=== PATIENT | female | born 1965 | race Caucasian/White ===

== ENCOUNTER 2018-08-22 14:05 | Inpatient (IN) ==
[2018-08-22] MEDS ORDERED: Piperacillin/Tazobactam 3.375 GM in Water for inj. (sterile) 20 ML 20 ML IVP ONE (14:23)
--- NOTE | 2018-08-22 14:30 | Emergency Department Note ---
Disposition Clinical Impression: ROBERT (acute kidney injury), Elevated troponin, Hyperglycemia, Shock, Dehydration Hypotension Qualifiers: Hypotension type: unspecified hypotension type Qualified Code(s): I95.9 - Hypotension, unspecified Disposition: Admitted As Inpatient Condition: Serious Referrals: NONE,PCP [Primary Care Provider] - Time of Disposition: 16:18 General Adult HPI - General Chief complaint: ED Weakness Stated complaint: Hyperglycemia Post Gallbladder 08/21 Time Seen by Provider: 08/22/18 14:18 Source: patient, family Mode of arrival: wheelchair Limitations: no limitations Nursing Notes Reviewed: Yes Vital Signs Reviewed: Yes - History of Present Illness HPI Narrative: Patient is a 53-year-old female that presents to the emergency Department postop day 1 from a cholecystectomy with Dr. Almodovar. She states that she is having continued abdominal pain. Her home health aide reported that she was hyperglycemic and hypotensive at home so she wanted her to come in to be evaluated. The patient's daughter did express that there is concern yesterday during the surgery that there could potentially have been a neck and the bowel however the surgeon ran the bowel was not able to find a perforation. Pain Scale: 10 - Related Data Home Medications Medication Instructions Recorded Confirmed Aspirin [Lo-Dose Aspirin EC] 81 mg PO DAILY 08/26/17 08/21/18 Canagliflozin [Invokana] 300 mg PO DAILY 08/26/17 08/21/18 Carvedilol [Coreg] 6.25 mg PO DAILY 08/26/17 08/21/18 Furosemide [Lasix] 20 mg PO DAILY 08/26/17 08/21/18 Liraglutide [Victoza 2-Grant] 0.2 ml SQ DAILY 08/26/17 08/21/18 Lisinopril [Zestril] 20 mg PO DAILY 08/26/17 08/21/18 Loratadine [Claritin] 10 mg PO DAILY PRN 08/26/17 08/21/18 Simvastatin [Zocor] 40 mg PO HS 08/26/17 08/21/18 Spironolactone [Aldactone] 12.5 mg PO DAILY 08/26/17 08/26/17 Venlafaxine XR (24 HR) [Effexor XR] 75 mg PO DAILY 08/26/17 08/21/18 Previous Rx's Medication Instructions Recorded OxyCODONE/APAP 5/325 [Percocet 1 each PO Q6HR PRN 7 Days #20 08/21/18 5/325 MG] tablet Allergies Allergy/AdvReac Type Severity Reaction Status Date / Time No Known Allergies Allergy Verified 08/26/17 07:34 All systems ED: reviewed and negative except as stated. Constitutional: Denies: fever Cardiovascular: Denies: chest pain Respiratory: Denies: dyspnea Gastrointestinal: Reports: abdominal pain Past Medical History - Past Medical History Medical history: Reports: cardiomyopathy, coronary artery disease, CVA, diabetes, hyperlipidemia, hypertension, seizures Surgical history: Reports: angioplasty/stent, breast surgery, , coronary bypass (CABG) Psychiatric history: Reports: anxiety, depression - Social History Smoking Status: Never smoker Smokeless Tobacco Status: No Alcohol use: Reports: none Drug use: Reports: none Physical Exam - General Limitations: no limitations General appearance: alert, in no apparent distress - Head Head exam: atraumatic, normocephalic - Eye Eye exam: Present: normal appearance, EOMI - Neck Neck exam: Present: normal inspection, full ROM, trachea midline - Respiratory Respiratory exam: Present: normal lung sounds bilaterally. Absent: respiratory distress, wheezes - Cardiovascular Cardiovascular exam: Present: regular rate, normal rhythm, normal heart sounds, +S1, +S2 - Abdominal Exam Abdominal exam: Present: soft, tenderness, normal bowel sounds Abdominal tenderness: Present: diffuse, moderate - Neurological Exam Neurological exam: Present: alert, oriented X3 - Psychiatric Psychiatric exam: Present: normal affect, normal mood - Skin Skin exam: Present: warm, dry, intact Course Vital Signs Pulse Rate 101 08/22/18 14:15 Respiratory Rate 18 08/22/18 14:15 Blood Pressure 69/46 08/22/18 14:15 O2 Sat by Pulse Oximetry 96 08/22/18 14:15 Temperature 97.3 F L 08/22/18 14:34 Pulse Rate 107 08/22/18 17:20 Respiratory Rate 16 08/22/18 17:20 Blood Pressure 95/55 08/22/18 17:20 O2 Sat by Pulse Oximetry 99 08/22/18 17:20 Oxygen Delivery Oxygen Delivery Room Air Medical Decision Making - MDM Narrative Medical decision making narrative: Due the patient presents emergency Department with increased abdominal pain as well as hypotension there is concern for possible intra-abdominal pathology associated with recent surgery. Continue basic laboratory testing, put in 2 large bore IVs and fluid resuscitation as well as empiric antibiotics. Dr. Almodovar was notified and he had stated that when he was introduced in the trocar there is initial concern that there could be perforation of the bowel however they ran the ball multiple times and there was no leak or bleeding from the bowel. He stated that after examining the bowel he thinks it is more likely that the trocar is a rectus muscle. The patient has required 3 L of normal saline here in the emergency department. Patient was hyperglycemic with a blood glucose of 548. Patient is not acidotic. PH is 7.38. Patient has an anion gap of 18. Her bicarbonate is 16. Patient is approaching DKA. Patient be treated with IV insulin and fluids. Patient has had responsiveness to the fluids from a blood pressure standpoint. Her blood pressure has been in the mid 90s to low 100s systolic. However due to the patient requiring multiple fluids, insulin and antibiotics in the patient's blood pressure being somewhat labile we will place a central line. I did call and speak to the on-call steward/stewardess third Dr Quintana and he has agreed for the patient to be admitted to the ICU. Patient will have a noncontrasted CT scan of the abdomen and pelvis rule out possible intra- abdominal pathology due to the patient having reduced kidney function and GFR she cannot have a contrast study at this time. Patient does have an elevated troponin at this time however the likely secondary to the patient being hypotensive and having decreased renal function. Because this is likely demand ischemia. If there are any acute intervention is required at this time. The steward/stewardess third was in agreement with this plan but did request that IV magnesium be given. This will be done prior to the patient be admitted to the hospital. The CT scan of the abdomen and pelvis showed a significant amount of fluid in the right upper quadrant which is concerning for possible bile leak. I did call the surgeon Dr. Almodovar who was on-call who performed the initial surgery. He came to bedside to evaluate the patient and reviewed the CT scan and felt that this was too much fluid in the abdomen and she was having too much pain so he elected to take the patient back to the OR at this time. We offered to put a central line in here in the emergency department however Dr. Almodovar stated that we did not need to do that he would take her to the OR and if he needed that they would place it there. Patient's blood pressure was 97 systolic prior to the patient leaving the ER. - Medical Records Medical records reviewed: Yes I reviewed the patient's medical records. - Lab Data Lab results reviewed: Yes I reviewed the patient's lab results. Result diagrams: 08/22/18 14:38 08/22/18 14:38 Lab Results 08/22/18 08/22/18 08/22/18 Range/Units 14:22 14:23 14:38 WBC (4.3-11.1) K/mcL RBC (3.82-4.97) M/mcL Hgb (11.5-15.4) g/dL Hct (35.3-44.9) % MCV (83.0-100.0) fL MCH (28.0-33.3) pg MCHC (31.6-35.5) g/dL RDW (11.5-14.5) % Plt Count (140-400) K/mcL MPV (9.4-12.4) fL Immature Gran % (0-4) % Seg Neutrophils % % Lymphocytes % % Monocytes % % Eosinophils % % Basophils % % Neutrophils # (1.6-8.9) K/mcL Lymphocytes # (0.6-4.6) K/mcL Monocytes # (0.0-1.3) K/mcL Eosinophils # (0.0-0.6) K/mcL Basophils # (0.0-0.2) K/mcL PT (9.4-12.1) Seconds INR APTT (26.0-36.0) Seconds VBG pH (7.32-7.42) pH Units VBG pCO2 (41-51) mmHg VBG pO2 (25-50) mmHg VBG HCO3 (21-27) mEq/L Sodium (136-145) mEq/L Potassium (3.5-5.1) mEq/L Chloride (98-107) mEq/L Carbon Dioxide (23-29) mEq/L BUN (6-20) mg/dL Creatinine (0.60-1.20) mg/dL Est GFR ( Amer) (> 60) Est GFR (Non-Af Amer) (> 60) BUN/Creatinine Ratio (6-26) Glucose (70-105) mg/dL POC Glucose 523 H* 578 H* (70-99) mg/dL Calculated Osmolality (280-300) Lactic Acid (0.5-2.2) mmol/L Calcium (8.6-10.3) mg/dL Phosphorus (2.7-4.5) mg/dL Magnesium (1.6-2.6) mg/dL Total Bilirubin (0.3-1.0) mg/dL Direct Bilirubin (0.0-0.2) mg/dL Indirect Bilirubin (0.0-1.2) mg/dL AST (13-39) Units/L ALT (7-52) Units/L Alkaline Phosphatase (34-104) Units/L Troponin I (< 0.04) ng/mL B-Natriuretic Peptide 184 H (Less than 100) pg/mL Serum Total Protein (6.4-8.9) g/dL Albumin (3.5-5.7) g/dL Globulin (2.4-3.5) g/dL Albumin/Globulin Ratio (1.1-2.2) Beta-Hydroxybutyric Acd (0.02-0.27) mmol/L Random Cortisol mcg/dl Urine Color (Yellow) Urine Clarity (Clear) Urine pH (5.0-8.0) pH Units Ur Specific [place] (1.010-1.025) Urine Protein (Neg-Trace) mg/dL Urine Glucose (UA) (Normal) mg/dL Urine Ketones (Negative) mg/dL Urine Blood (Negative) Urine Nitrite (Negative) Urine Bilirubin (Negative) Urine Urobilinogen (Normal) mg/dL Ur Leukocyte Esterase (Negative) Ur Culture Indicated? (NO) Blood Type Antibody Screen 08/22/18 08/22/18 08/22/18 Range/Units 14:38 14:38 14:38 WBC 5.1 (4.3-11.1) K/mcL RBC 5.53 H (3.82-4.97) M/mcL Hgb 14.9 D (11.5-15.4) g/dL Hct 46.8 H (35.3-44.9) % MCV 84.6 (83.0-100.0) fL MCH 26.9 L (28.0-33.3) pg MCHC 31.8 (31.6-35.5) g/dL RDW 13.7 (11.5-14.5) % Plt Count 328 (140-400) K/mcL MPV 10.5 (9.4-12.4) fL Immature Gran % 0.4 (0-4) % Seg Neutrophils % 74.9 % Lymphocytes % 17.5 % Monocytes % 6.8 % Eosinophils % 0.0 % Basophils % 0.4 % Neutrophils # 3.8 (1.6-8.9) K/mcL Lymphocytes # 0.9 (0.6-4.6) K/mcL Monocytes # 0.4 (0.0-1.3) K/mcL Eosinophils # 0.0 (0.0-0.6) K/mcL Basophils # 0.0 (0.0-0.2) K/mcL PT 14.5 H (9.4-12.1) Seconds INR 1.3 APTT 30.7 (26.0-36.0) Seconds VBG pH (7.32-7.42) pH Units VBG pCO2 (41-51) mmHg VBG pO2 (25-50) mmHg VBG HCO3 (21-27) mEq/L Sodium 128 L (136-145) mEq/L Potassium 5.4 H (3.5-5.1) mEq/L Chloride 94 L (98-107) mEq/L Carbon Dioxide 16 L (23-29) mEq/L BUN 31 H (6-20) mg/dL Creatinine 1.89 H (0.60-1.20) mg/dL Est GFR ( Amer) 34 L (> 60) Est GFR (Non-Af Amer) 28 L (> 60) BUN/Creatinine Ratio 16 (6-26) Glucose 548 H* (70-105) mg/dL POC Glucose (70-99) mg/dL Calculated Osmolality 298 (280-300) Lactic Acid (0.5-2.2) mmol/L Calcium 8.5 L (8.6-10.3) mg/dL Phosphorus 4.9 H (2.7-4.5) mg/dL Magnesium 1.1 L (1.6-2.6) mg/dL Total Bilirubin 0.7 (0.3-1.0) mg/dL Direct Bilirubin 0.1 (0.0-0.2) mg/dL Indirect Bilirubin 0.6 (0.0-1.2) mg/dL AST 32 (13-39) Units/L ALT 24 (7-52) Units/L Alkaline Phosphatase 47 (34-104) Units/L Troponin I 0.04 H* (< 0.04) ng/mL B-Natriuretic Peptide (Less than 100) pg/mL Serum Total Protein 6.3 L (6.4-8.9) g/dL Albumin 3.7 (3.5-5.7) g/dL Globulin 2.6 (2.4-3.5) g/dL Albumin/Globulin Ratio 1.4 (1.1-2.2) Beta-Hydroxybutyric Acd (0.02-0.27) mmol/L Random Cortisol mcg/dl Urine Color (Yellow) Urine Clarity (Clear) Urine pH (5.0-8.0) pH Units Ur Specific [place] (1.010-1.025) Urine Protein (Neg-Trace) mg/dL Urine Glucose (UA) (Normal) mg/dL Urine Ketones (Negative) mg/dL Urine Blood (Negative) Urine Nitrite (Negative) Urine Bilirubin (Negative) Urine Urobilinogen (Normal) mg/dL Ur Leukocyte Esterase (Negative) Ur Culture Indicated? (NO) Blood Type Antibody Screen 08/22/18 08/22/18 08/22/18 Range/Units 14:38 14:38 14:38 WBC (4.3-11.1) K/mcL RBC (3.82-4.97) M/mcL Hgb (11.5-15.4) g/dL Hct (35.3-44.9) % MCV (83.0-100.0) fL MCH (28.0-33.3) pg MCHC (31.6-35.5) g/dL RDW (11.5-14.5) % Plt Count (140-400) K/mcL MPV (9.4-12.4) fL Immature Gran % (0-4) % Seg Neutrophils % % Lymphocytes % % Monocytes % % Eosinophils % % Basophils % % Neutrophils # (1.6-8.9) K/mcL Lymphocytes # (0.6-4.6) K/mcL Monocytes # (0.0-1.3) K/mcL Eosinophils # (0.0-0.6) K/mcL Basophils # (0.0-0.2) K/mcL PT (9.4-12.1) Seconds INR APTT (26.0-36.0) Seconds VBG pH (7.32-7.42) pH Units VBG pCO2 (41-51) mmHg VBG pO2 (25-50) mmHg VBG HCO3 (21-27) mEq/L Sodium (136-145) mEq/L Potassium (3.5-5.1) mEq/L Chloride (98-107) mEq/L Carbon Dioxide (23-29) mEq/L BUN (6-20) mg/dL Creatinine (0.60-1.20) mg/dL Est GFR ( Amer) (> 60) Est GFR (Non-Af Amer) (> 60) BUN/Creatinine Ratio (6-26) Glucose (70-105) mg/dL POC Glucose (70-99) mg/dL Calculated Osmolality (280-300) Lactic Acid 5.3 H* (0.5-2.2) mmol/L Calcium (8.6-10.3) mg/dL Phosphorus (2.7-4.5) mg/dL Magnesium (1.6-2.6) mg/dL Total Bilirubin (0.3-1.0) mg/dL Direct Bilirubin (0.0-0.2) mg/dL Indirect Bilirubin (0.0-1.2) mg/dL AST (13-39) Units/L ALT (7-52) Units/L Alkaline Phosphatase (34-104) Units/L Troponin I (< 0.04) ng/mL B-Natriuretic Peptide (Less than 100) pg/mL Serum Total Protein (6.4-8.9) g/dL Albumin (3.5-5.7) g/dL Globulin (2.4-3.5) g/dL Albumin/Globulin Ratio (1.1-2.2) Beta-Hydroxybutyric Acd 0.41 H (0.02-0.27) mmol/L Random Cortisol mcg/dl Urine Color (Yellow) Urine Clarity (Clear) Urine pH (5.0-8.0) pH Units Ur Specific [place] (1.010-1.025) Urine Protein (Neg-Trace) mg/dL Urine Glucose (UA) (Normal) mg/dL Urine Ketones (Negative) mg/dL Urine Blood (Negative) Urine Nitrite (Negative) Urine Bilirubin (Negative) Urine Urobilinogen (Normal) mg/dL Ur Leukocyte Esterase (Negative) Ur Culture Indicated? (NO) Blood Type B POSITIVE Antibody Screen NEGATIVE 08/22/18 08/22/18 08/22/18 Range/Units 14:38 14:57 15:06 WBC (4.3-11.1) K/mcL RBC (3.82-4.97) M/mcL Hgb (11.5-15.4) g/dL Hct (35.3-44.9) % MCV (83.0-100.0) fL MCH (28.0-33.3) pg MCHC (31.6-35.5) g/dL RDW (11.5-14.5) % Plt Count (140-400) K/mcL MPV (9.4-12.4) fL Immature Gran % (0-4) % Seg Neutrophils % % Lymphocytes % % Monocytes % % Eosinophils % % Basophils % % Neutrophils # (1.6-8.9) K/mcL Lymphocytes # (0.6-4.6) K/mcL Monocytes # (0.0-1.3) K/mcL Eosinophils # (0.0-0.6) K/mcL Basophils # (0.0-0.2) K/mcL PT (9.4-12.1) Seconds INR APTT (26.0-36.0) Seconds VBG pH 7.38 (7.32-7.42) pH Units VBG pCO2 25 L (41-51) mmHg VBG pO2 212 H (25-50) mmHg VBG HCO3 15 L (21-27) mEq/L Sodium (136-145) mEq/L Potassium (3.5-5.1) mEq/L Chloride (98-107) mEq/L Carbon Dioxide (23-29) mEq/L BUN (6-20) mg/dL Creatinine (0.60-1.20) mg/dL Est GFR ( Amer) (> 60) Est GFR (Non-Af Amer) (> 60) BUN/Creatinine Ratio (6-26) Glucose (70-105) mg/dL POC Glucose (70-99) mg/dL Calculated Osmolality (280-300) Lactic Acid (0.5-2.2) mmol/L Calcium (8.6-10.3) mg/dL Phosphorus (2.7-4.5) mg/dL Magnesium (1.6-2.6) mg/dL Total Bilirubin (0.3-1.0) mg/dL Direct Bilirubin (0.0-0.2) mg/dL Indirect Bilirubin (0.0-1.2) mg/dL AST (13-39) Units/L ALT (7-52) Units/L Alkaline Phosphatase (34-104) Units/L Troponin I (< 0.04) ng/mL B-Natriuretic Peptide (Less than 100) pg/mL Serum Total Protein (6.4-8.9) g/dL Albumin (3.5-5.7) g/dL Globulin (2.4-3.5) g/dL Albumin/Globulin Ratio (1.1-2.2) Beta-Hydroxybutyric Acd (0.02-0.27) mmol/L Random Cortisol > 60.0 mcg/dl Urine Color Yellow (Yellow) Urine Clarity Clear (Clear) Urine pH 6.0 (5.0-8.0) pH Units Ur Specific [place] 1.024 (1.010-1.025) Urine Protein Negative (Neg-Trace) mg/dL Urine Glucose (UA) >=1000 H (Normal) mg/dL Urine Ketones 15 H (Negative) mg/dL Urine Blood Negative (Negative) Urine Nitrite Negative (Negative) Urine Bilirubin Negative (Negative) Urine Urobilinogen Normal (Normal) mg/dL Ur Leukocyte Esterase Negative (Negative) Ur Culture Indicated? NO (NO) Blood Type Antibody Screen - Radiology Data Radiology results reviewed: Yes I reviewed the patient's radiology results. Chest X-Ray 08/22/18 14:24 IMPRESSION: No acute cardiopulmonary disease. D/ / Manohar Harmon MD / Manohar Harmon MD Interpreting Provider: Manohar Harmon MD - EKG Data EKG #1 EKG attestation: Yes I reviewed and interpreted this EKG. EKG results narrative: Patient's EKG showed sinus tachycardia at 104 beats from it, MD interval 141, QRS duration of 14, QTc of 44. Initial evidence of STEMI and EKG. Attestation Statement - Attestation Attestation: I, Joe Morejon DO, examined this patient [id number] and my medical decision-making was reviewed with Dr. Philippe Fernandez, Resident Physician. I agree with the documented findings, disposition and treatment plan as described except to the extent set forth below. Please see my progress notes for details.
[2018-08-22] MEDS ORDERED: 0.9 % Sodium Chloride Mini Bag 100 ML ONE (14:38)
[2018-08-22] MEDS ORDERED: Hydrocortisone Sodium Succ 100 MG/2 ML VIAL IVP ONE (14:41)
[2018-08-22] MEDS: 0.9 % Sodium Chloride 1,000 ML IVC SCH ×2 (14:42→14:54)
[2018-08-22 15:00] LABS: Basophils % 0.4 %; Hematocrit 46.8 % (35.3-44.9); Immature Granulocytes % 0.4 % (0-4); Lymphocytes # 0.9 K/mcL (0.6-4.6); Lymphocytes % 17.5 %; Mean Corpuscular HGB Conc 31.8 g/dL (31.6-35.5); Mean Corpuscular Hemoglobin 26.9 pg (28.0-33.3); Mean Corpuscular Volume 84.6 fL (83.0-100.0); Mean Platelet Volume 10.5 fL (9.4-12.4); Monocytes # 0.4 K/mcL (0.0-1.3); Monocytes % 6.8 %; Neutrophils # 3.8 K/mcL (1.6-8.9); Platelet Count 328 K/mcL (140-400); Red Blood Count 5.53 M/mcL (3.82-4.97); Red Cell Distribution Width 13.7 % (11.5-14.5); Segmented Neutrophils % 74.9 %
[2018-08-22 15:00] LABS: VBG HCO3 15 mEq/L (21-27); VBG PCO2 25 mmHg (41-51); VBG PH 7.38 pH Units (7.32-7.42); VBG PO2 212 mmHg (25-50)
[2018-08-22 15:01] LABS: Hemoglobin 14.9 g/dL (11.5-15.4)
[2018-08-22 15:05] LABS: INR 1.3; Prothrombin Time 14.5 Seconds (9.4-12.1)
[2018-08-22 15:07] LABS: Activated Partial Thrombo Time 30.7 Seconds (26.0-36.0)
[2018-08-22] MEDS ORDERED: 0.9 % Sodium Chloride 500 ML IVC ONE (15:38)
[2018-08-22 15:41] LABS: Albumin 3.7 g/dL (3.5-5.7); Albumin/Globulin Ratio 1.4 (1.1-2.2); Bilirubin,Direct 0.1 mg/dL (0.0-0.2); Bilirubin,Indirect 0.6 mg/dL (0.0-1.2); Bilirubin,Total 0.7 mg/dL (0.3-1.0); Calcium 8.5 mg/dL (8.6-10.3); Globulin 2.6 g/dL (2.4-3.5); Magnesium 1.1 mg/dL (1.6-2.6); Phosphorous 4.9 mg/dL (2.7-4.5); Potassium 5.4 mEq/L (3.5-5.1); Total Protein 6.3 g/dL (6.4-8.9); Troponin I 0.04 ng/mL (< 0.04)
--- NOTE | 2018-08-22 15:57 | Emergency Department Note ---
Disposition Clinical Impression: Hypotension, ROBERT (acute kidney injury), Elevated troponin, Hyperglycemia, Shock, Dehydration Disposition: Admitted As Inpatient Condition: Critical Referrals: NONE,PCP [Primary Care Provider] - Time of Disposition: 17:21 General Adult HPI - General Chief complaint: ED Weakness Stated complaint: Hyperglycemia Post Gallbladder 08/21 Time Seen by Provider: 08/22/18 14:18 Source: patient, family Mode of arrival: wheelchair Limitations: no limitations - History of Present Illness Pain Scale: 10 - Related Data Home Medications Medication Instructions Recorded Confirmed Aspirin [Lo-Dose Aspirin EC] 81 mg PO DAILY 08/26/17 08/21/18 Canagliflozin [Invokana] 300 mg PO DAILY 08/26/17 08/21/18 Carvedilol [Coreg] 6.25 mg PO DAILY 08/26/17 08/21/18 Furosemide [Lasix] 20 mg PO DAILY 08/26/17 08/21/18 Liraglutide [Victoza 2-Grant] 0.2 ml SQ DAILY 08/26/17 08/21/18 Lisinopril [Zestril] 20 mg PO DAILY 08/26/17 08/21/18 Loratadine [Claritin] 10 mg PO DAILY PRN 08/26/17 08/21/18 Simvastatin [Zocor] 40 mg PO HS 08/26/17 08/21/18 Spironolactone [Aldactone] 12.5 mg PO DAILY 08/26/17 08/26/17 Venlafaxine XR (24 HR) [Effexor XR] 75 mg PO DAILY 08/26/17 08/21/18 Previous Rx's Medication Instructions Recorded OxyCODONE/APAP 5/325 [Percocet 1 each PO Q6HR PRN 7 Days #20 08/21/18 5/325 MG] tablet Allergies Allergy/AdvReac Type Severity Reaction Status Date / Time No Known Allergies Allergy Verified 08/26/17 07:34 Constitutional: Denies: fever Cardiovascular: Denies: chest pain Respiratory: Denies: dyspnea Gastrointestinal: Reports: abdominal pain Past Medical History - Past Medical History Medical history: Reports: cardiomyopathy, coronary artery disease, CVA, diabetes, hyperlipidemia, hypertension, seizures Surgical history: Reports: angioplasty/stent, breast surgery, , coronary bypass (CABG) Psychiatric history: Reports: anxiety, depression - Social History Smoking Status: Never smoker Smokeless Tobacco Status: No Alcohol use: Reports: none Drug use: Reports: none Physical Exam - General Limitations: no limitations General appearance: alert, in no apparent distress Course Vital Signs Pulse Rate 101 08/22/18 14:15 Respiratory Rate 18 08/22/18 14:15 Blood Pressure 69/46 08/22/18 14:15 O2 Sat by Pulse Oximetry 96 08/22/18 14:15 Temperature 97.3 F L 08/22/18 14:34 Pulse Rate 100 08/22/18 16:39 Respiratory Rate 18 08/22/18 16:39 Blood Pressure 98/56 08/22/18 16:39 O2 Sat by Pulse Oximetry 98 08/22/18 16:39 Oxygen Delivery Oxygen Delivery Room Air Medical Decision Making - Lab Data Result diagrams: 08/22/18 14:38 08/22/18 14:38 Lab Results 08/22/18 08/22/18 08/22/18 Range/Units 14:22 14:23 14:38 WBC (4.3-11.1) K/mcL RBC (3.82-4.97) M/mcL Hgb (11.5-15.4) g/dL Hct (35.3-44.9) % MCV (83.0-100.0) fL MCH (28.0-33.3) pg MCHC (31.6-35.5) g/dL RDW (11.5-14.5) % Plt Count (140-400) K/mcL MPV (9.4-12.4) fL Immature Gran % (0-4) % Seg Neutrophils % % Lymphocytes % % Monocytes % % Eosinophils % % Basophils % % Neutrophils # (1.6-8.9) K/mcL Lymphocytes # (0.6-4.6) K/mcL Monocytes # (0.0-1.3) K/mcL Eosinophils # (0.0-0.6) K/mcL Basophils # (0.0-0.2) K/mcL PT (9.4-12.1) Seconds INR APTT (26.0-36.0) Seconds VBG pH (7.32-7.42) pH Units VBG pCO2 (41-51) mmHg VBG pO2 (25-50) mmHg VBG HCO3 (21-27) mEq/L Sodium (136-145) mEq/L Potassium (3.5-5.1) mEq/L Chloride (98-107) mEq/L Carbon Dioxide (23-29) mEq/L BUN (6-20) mg/dL Creatinine (0.60-1.20) mg/dL Est GFR ( Amer) (> 60) Est GFR (Non-Af Amer) (> 60) BUN/Creatinine Ratio (6-26) Glucose (70-105) mg/dL POC Glucose 523 H* 578 H* (70-99) mg/dL Calculated Osmolality (280-300) Lactic Acid (0.5-2.2) mmol/L Calcium (8.6-10.3) mg/dL Phosphorus (2.7-4.5) mg/dL Magnesium (1.6-2.6) mg/dL Total Bilirubin (0.3-1.0) mg/dL Direct Bilirubin (0.0-0.2) mg/dL Indirect Bilirubin (0.0-1.2) mg/dL AST (13-39) Units/L ALT (7-52) Units/L Alkaline Phosphatase (34-104) Units/L Troponin I (< 0.04) ng/mL B-Natriuretic Peptide 184 H (Less than 100) pg/mL Serum Total Protein (6.4-8.9) g/dL Albumin (3.5-5.7) g/dL Globulin (2.4-3.5) g/dL Albumin/Globulin Ratio (1.1-2.2) Beta-Hydroxybutyric Acd (0.02-0.27) mmol/L Random Cortisol mcg/dl Urine Color (Yellow) Urine Clarity (Clear) Urine pH (5.0-8.0) pH Units Ur Specific [place] (1.010-1.025) Urine Protein (Neg-Trace) mg/dL Urine Glucose (UA) (Normal) mg/dL Urine Ketones (Negative) mg/dL Urine Blood (Negative) Urine Nitrite (Negative) Urine Bilirubin (Negative) Urine Urobilinogen (Normal) mg/dL Ur Leukocyte Esterase (Negative) Ur Culture Indicated? (NO) Blood Type Antibody Screen 08/22/18 08/22/18 08/22/18 Range/Units 14:38 14:38 14:38 WBC 5.1 (4.3-11.1) K/mcL RBC 5.53 H (3.82-4.97) M/mcL Hgb 14.9 D (11.5-15.4) g/dL Hct 46.8 H (35.3-44.9) % MCV 84.6 (83.0-100.0) fL MCH 26.9 L (28.0-33.3) pg MCHC 31.8 (31.6-35.5) g/dL RDW 13.7 (11.5-14.5) % Plt Count 328 (140-400) K/mcL MPV 10.5 (9.4-12.4) fL Immature Gran % 0.4 (0-4) % Seg Neutrophils % 74.9 % Lymphocytes % 17.5 % Monocytes % 6.8 % Eosinophils % 0.0 % Basophils % 0.4 % Neutrophils # 3.8 (1.6-8.9) K/mcL Lymphocytes # 0.9 (0.6-4.6) K/mcL Monocytes # 0.4 (0.0-1.3) K/mcL Eosinophils # 0.0 (0.0-0.6) K/mcL Basophils # 0.0 (0.0-0.2) K/mcL PT 14.5 H (9.4-12.1) Seconds INR 1.3 APTT 30.7 (26.0-36.0) Seconds VBG pH (7.32-7.42) pH Units VBG pCO2 (41-51) mmHg VBG pO2 (25-50) mmHg VBG HCO3 (21-27) mEq/L Sodium 128 L (136-145) mEq/L Potassium 5.4 H (3.5-5.1) mEq/L Chloride 94 L (98-107) mEq/L Carbon Dioxide 16 L (23-29) mEq/L BUN 31 H (6-20) mg/dL Creatinine 1.89 H (0.60-1.20) mg/dL Est GFR ( Amer) 34 L (> 60) Est GFR (Non-Af Amer) 28 L (> 60) BUN/Creatinine Ratio 16 (6-26) Glucose 548 H* (70-105) mg/dL POC Glucose (70-99) mg/dL Calculated Osmolality 298 (280-300) Lactic Acid (0.5-2.2) mmol/L Calcium 8.5 L (8.6-10.3) mg/dL Phosphorus 4.9 H (2.7-4.5) mg/dL Magnesium 1.1 L (1.6-2.6) mg/dL Total Bilirubin 0.7 (0.3-1.0) mg/dL Direct Bilirubin 0.1 (0.0-0.2) mg/dL Indirect Bilirubin 0.6 (0.0-1.2) mg/dL AST 32 (13-39) Units/L ALT 24 (7-52) Units/L Alkaline Phosphatase 47 (34-104) Units/L Troponin I 0.04 H* (< 0.04) ng/mL B-Natriuretic Peptide (Less than 100) pg/mL Serum Total Protein 6.3 L (6.4-8.9) g/dL Albumin 3.7 (3.5-5.7) g/dL Globulin 2.6 (2.4-3.5) g/dL Albumin/Globulin Ratio 1.4 (1.1-2.2) Beta-Hydroxybutyric Acd (0.02-0.27) mmol/L Random Cortisol mcg/dl Urine Color (Yellow) Urine Clarity (Clear) Urine pH (5.0-8.0) pH Units Ur Specific [place] (1.010-1.025) Urine Protein (Neg-Trace) mg/dL Urine Glucose (UA) (Normal) mg/dL Urine Ketones (Negative) mg/dL Urine Blood (Negative) Urine Nitrite (Negative) Urine Bilirubin (Negative) Urine Urobilinogen (Normal) mg/dL Ur Leukocyte Esterase (Negative) Ur Culture Indicated? (NO) Blood Type Antibody Screen 08/22/18 08/22/18 08/22/18 Range/Units 14:38 14:38 14:38 WBC (4.3-11.1) K/mcL RBC (3.82-4.97) M/mcL Hgb (11.5-15.4) g/dL Hct (35.3-44.9) % MCV (83.0-100.0) fL MCH (28.0-33.3) pg MCHC (31.6-35.5) g/dL RDW (11.5-14.5) % Plt Count (140-400) K/mcL MPV (9.4-12.4) fL Immature Gran % (0-4) % Seg Neutrophils % % Lymphocytes % % Monocytes % % Eosinophils % % Basophils % % Neutrophils # (1.6-8.9) K/mcL Lymphocytes # (0.6-4.6) K/mcL Monocytes # (0.0-1.3) K/mcL Eosinophils # (0.0-0.6) K/mcL Basophils # (0.0-0.2) K/mcL PT (9.4-12.1) Seconds INR APTT (26.0-36.0) Seconds VBG pH (7.32-7.42) pH Units VBG pCO2 (41-51) mmHg VBG pO2 (25-50) mmHg VBG HCO3 (21-27) mEq/L Sodium (136-145) mEq/L Potassium (3.5-5.1) mEq/L Chloride (98-107) mEq/L Carbon Dioxide (23-29) mEq/L BUN (6-20) mg/dL Creatinine (0.60-1.20) mg/dL Est GFR ( Amer) (> 60) Est GFR (Non-Af Amer) (> 60) BUN/Creatinine Ratio (6-26) Glucose (70-105) mg/dL POC Glucose (70-99) mg/dL Calculated Osmolality (280-300) Lactic Acid 5.3 H* (0.5-2.2) mmol/L Calcium (8.6-10.3) mg/dL Phosphorus (2.7-4.5) mg/dL Magnesium (1.6-2.6) mg/dL Total Bilirubin (0.3-1.0) mg/dL Direct Bilirubin (0.0-0.2) mg/dL Indirect Bilirubin (0.0-1.2) mg/dL AST (13-39) Units/L ALT (7-52) Units/L Alkaline Phosphatase (34-104) Units/L Troponin I (< 0.04) ng/mL B-Natriuretic Peptide (Less than 100) pg/mL Serum Total Protein (6.4-8.9) g/dL Albumin (3.5-5.7) g/dL Globulin (2.4-3.5) g/dL Albumin/Globulin Ratio (1.1-2.2) Beta-Hydroxybutyric Acd 0.41 H (0.02-0.27) mmol/L Random Cortisol mcg/dl Urine Color (Yellow) Urine Clarity (Clear) Urine pH (5.0-8.0) pH Units Ur Specific [place] (1.010-1.025) Urine Protein (Neg-Trace) mg/dL Urine Glucose (UA) (Normal) mg/dL Urine Ketones (Negative) mg/dL Urine Blood (Negative) Urine Nitrite (Negative) Urine Bilirubin (Negative) Urine Urobilinogen (Normal) mg/dL Ur Leukocyte Esterase (Negative) Ur Culture Indicated? (NO) Blood Type B POSITIVE Antibody Screen NEGATIVE 08/22/18 08/22/18 08/22/18 Range/Units 14:38 14:57 15:06 WBC (4.3-11.1) K/mcL RBC (3.82-4.97) M/mcL Hgb (11.5-15.4) g/dL Hct (35.3-44.9) % MCV (83.0-100.0) fL MCH (28.0-33.3) pg MCHC (31.6-35.5) g/dL RDW (11.5-14.5) % Plt Count (140-400) K/mcL MPV (9.4-12.4) fL Immature Gran % (0-4) % Seg Neutrophils % % Lymphocytes % % Monocytes % % Eosinophils % % Basophils % % Neutrophils # (1.6-8.9) K/mcL Lymphocytes # (0.6-4.6) K/mcL Monocytes # (0.0-1.3) K/mcL Eosinophils # (0.0-0.6) K/mcL Basophils # (0.0-0.2) K/mcL PT (9.4-12.1) Seconds INR APTT (26.0-36.0) Seconds VBG pH 7.38 (7.32-7.42) pH Units VBG pCO2 25 L (41-51) mmHg VBG pO2 212 H (25-50) mmHg VBG HCO3 15 L (21-27) mEq/L Sodium (136-145) mEq/L Potassium (3.5-5.1) mEq/L Chloride (98-107) mEq/L Carbon Dioxide (23-29) mEq/L BUN (6-20) mg/dL Creatinine (0.60-1.20) mg/dL Est GFR ( Amer) (> 60) Est GFR (Non-Af Amer) (> 60) BUN/Creatinine Ratio (6-26) Glucose (70-105) mg/dL POC Glucose (70-99) mg/dL Calculated Osmolality (280-300) Lactic Acid (0.5-2.2) mmol/L Calcium (8.6-10.3) mg/dL Phosphorus (2.7-4.5) mg/dL Magnesium (1.6-2.6) mg/dL Total Bilirubin (0.3-1.0) mg/dL Direct Bilirubin (0.0-0.2) mg/dL Indirect Bilirubin (0.0-1.2) mg/dL AST (13-39) Units/L ALT (7-52) Units/L Alkaline Phosphatase (34-104) Units/L Troponin I (< 0.04) ng/mL B-Natriuretic Peptide (Less than 100) pg/mL Serum Total Protein (6.4-8.9) g/dL Albumin (3.5-5.7) g/dL Globulin (2.4-3.5) g/dL Albumin/Globulin Ratio (1.1-2.2) Beta-Hydroxybutyric Acd (0.02-0.27) mmol/L Random Cortisol > 60.0 mcg/dl Urine Color Yellow (Yellow) Urine Clarity Clear (Clear) Urine pH 6.0 (5.0-8.0) pH Units Ur Specific [place] 1.024 (1.010-1.025) Urine Protein Negative (Neg-Trace) mg/dL Urine Glucose (UA) >=1000 H (Normal) mg/dL Urine Ketones 15 H (Negative) mg/dL Urine Blood Negative (Negative) Urine Nitrite Negative (Negative) Urine Bilirubin Negative (Negative) Urine Urobilinogen Normal (Normal) mg/dL Ur Leukocyte Esterase Negative (Negative) Ur Culture Indicated? NO (NO) Blood Type Antibody Screen Critical Care Time Critical Care Time: Yes Total Critical Care Time: 60 Attestation: Critical care performed: Time is exclusive of separately billable procedures. Time includes: direct patient care, patient reassessment, coordination of patient care, interpretation of data (laboratory data, radiology data, and respiratory data), review of patient's medical records, medical consultation and documentation of patient care. Procedures included in critical care time: Procedures excluded from critical care time: Attestation Statement - Attestation Attestation: I, Joe Morejon DO, examined this patient [id number] and my medical decision-making was reviewed with Dr. Philippe Fernandez, Resident Physician. I agree with the documented findings, disposition and treatment plan as described except to the extent set forth below. Please see my progress notes for details. 53-year-old female presents to the emergency room through the triage area for evaluation of elevated glucose and hypotension. Patient had a laparoscopic cholecystectomy completed yesterday with no specific complications noted. The daughter who is with her on presentation did note that the surgeon said that initially there was some concern for possible nicking of the bowel but he had evaluated the bowel multiple times at the procedure and did not see any leakage or injury. Sallie and they felt that it was a rectus muscle of the abdomen that was called on the trocar. Vital signs in triage showed profound hypotension as well as an elevated glucose. Patient was tachycardic and tachypnea. Pulse ox is normal. Patient is mentating answering questions appro priately on arrival. She is protecting her airway. 2 large-bore IVs were initially started. 2 L of fluid were started at that time. Patient shows no acute signs of neurologic deficit or symptoms at this point. Her lungs are clear her heart is regular. Abdomen is soft but she does have tenderness. Surgical sites appear to be stable no protrusion bleeding or discharge. Her abdomen is not peritoneal at this point. She has no suprapubic discomfort pain or trauma. There is no signs of bruising or injury. Patient will have fluid resuscitation started this time and sepsis evaluation will be completed. CBC chemistry blood cultures lactic acid along with electrolytes will be ordered at this point. Chest x-ray as well as CT imaging of the abdomen will be collected. The surgeon who operated on the patient will be contacted for their recommendations intervention. Otherwise patient does not show any acute signs of perforation or peritoneal abdomen but will require further resuscitation and management. No focal infectious etiology is noted at this point. Patient will be prophylactically covered with vancomycin and Zosyn protecting against potential intra-abdominal related etiology to the presentation. There is concern for possible sepsis versus cardiogenic related shock at this point. Stress dose steroid infusion will be given as well. Patient will be provided 2 L of fluid here at this time to peripheral IVs and reevaluated. If her pressure does not respond the patient will have a central line placed. There is concern for possible possible diabetic ketoacidosis exacerbated secondary to surgical stress. We will monitor this closely here in the department and disposition will be determined. Patient will require admission once his treatment course has been completed and disposition to be determined at this time. See detailed documentation of the physical exam, medical intervention, medical decision- making and disposition in the resident physician's note. No critical care provider the patient's treatment course initially. 1515 Patient has an elevated lactic acid at 5.6. Patient does have derangements with her electrolytes including hyponatremia and hyperkalemia hypochloremia. She does have a gap of 18. Her bicarbonate is 16. She is a glucose of greater than 500. Her pH is 7.38. Patient does not meet all the criteria for diabetic ketoacidosis but is very close to this medical etiology. The have had stabilization of her blood pressure with an appropriate map but she continues to be less than 100 systolic. The on-call ICU attending was contacted and did request a central line being placed in the emergency room which does appear to be appropriate at this point. Another 500 mL of fluid was ordered secondary to 30 mg/kg bolus of fluid. At this time is still about have a specific focal source of infection. She also has acute kidney insufficiency and dehydration. Central line will be consented and placed under my direct supervision by the resident physician and the patient will be admitted to the ICU for aspects of postsurgical related to stress-induced hyperglycemia but a ketoacidosis and cardiogenic shock but no focal infectious etiology at this time. She has been appropriately treated for septic shock at this point as well. 60 minutes of critical care applied secondary to the multidisciplinary intervention medical resuscitation and management. [address] scan of the abdomen was concerning for significant amount of fluid in the right upper quadrant and with the elevated lactic acid and the patient's abdominal symptoms she will go back to surgery today for reevaluation of potential bowel related injury or bile leak. Dr. Almodovar evaluated the patient the bedside will take her to surgery. We discussed central line placement consented the patient for prior to the surgical intervention and it was requested by Dr. Almodovar to hold off on central line at this time and if need be they replace it either intraoperatively or in the ICU after the procedure. Patient is still mentating appropriately. Blood pressure has been stable but has waxed and waned. She does not show any acute signs of decompensation and has been appropriately fluid resuscitated at this time. Patient will be admitted after the surgical intervention has been completed.
[2018-08-22] MEDS ORDERED: *HR* Dextrose 50 % in Water (Syg) 50 ML SYRINGE IVP PRN ×3 (16:05→20:00)
[2018-08-22 16:11] LABS: Bilirubin,Urine Negative (Negative); Blood,Urine Negative (Negative); Clarity,Urine Clear (Clear); Color,Urine Yellow (Yellow); Glucose,Urine (UA) >=1000 mg/dL (Normal); Ketones,Urine 15 mg/dL (Negative); Leukocyte Esterase,Urine Negative (Negative); Nitrite,Urine Negative (Negative); Protein,Urine Negative (Neg-Trace); Specific Gravity,Urine 1.024 (1.010-1.025); Urobilinogen,Urine Normal (Normal)
[2018-08-22] MEDS ORDERED: Insulin Human Regular 100 UNIT in 0.9 % Sodium Chloride 100 ML IVC SCH ×2 (16:15→20:00)
--- NOTE | 2018-08-22 17:14 | Event Note ---
Date of Encounter: 08/22/18 Time of Encounter: 17:03 Patient seen and examined in the emergency department full note to come. In brief this is a 53-year-old woman postop day 1 status post cholecystectomy. She presented from home for hypotension that were discovered by home health nurse after multiple episodes of the retching and abdominal pain following dinner last night. ICU team notified because of hypotension and concern for sepsis versus septic shock and metabolic acidosis. Exam: Vitals Noted - borderline hypotensive; Sats 96-100 rmair; pulse 96: Sleepy but easily arousable Mucous membranes Heart sounds regular Lungs clear Abdomen distended bowel sounds hypoactive she is tender to palpation no rigidity she does have rebound tenderness and guarding however this is day fevers No lower extremity edema Labs Noted: Leukocytosis gap acidosis hyperglycemia ketoacidosis Lipase pending Impresssion Hypovolemia Severe sepsis DKA Lactic acidosis Hypomagnesemia Troponin elevation ROBERT Plan: -Admit to ICU -Agree with CVC placement and volume resuscitation with crystalloid I suspect should benefit from another liter of IV crystalloid before transitioning to continuous infusion -DKA protocol -Agree with CT abdomen pelvis noncontrasted study -Agree with broad-spectrum antibiotics and cultures which have been obtained -Send U/A with culture -Follow Accu-Cheks hourly and BMP every 2hours -Suspect demand ischemia but will trend troponin and lactate every 6 hours -General surgery consultation -Replace magnesium will need likely 2-4 g in the next 6 hours -Chemical DVT prophylaxis Family updated
--- NOTE | 2018-08-22 17:14 | Anesthesia Evaluation PreOp ---
Date of Encounter: 08/22/18 Time of Encounter: 17:10 - Past History Planned Operation: Exploratory Laparotomy Cardiac History: MD (2012), Cardiac Surgery Pulmonary History: RUSSELL Dx [employer] KITCH[employer] MANAGER History: Denies Any Significant HX Other Medical History: Diabetes Type II, Other Anesthesia History: Past Anesthesia (GB yesterday, CABG/AVR, breast reduction, C/S), Problems : No Alcohol Use: none Drug use: none Medications and Allergies Aspirin [Lo-Dose Aspirin EC] 81 mg PO DAILY 08/26/17 [History] Canagliflozin [Invokana] 300 mg PO DAILY 08/26/17 [History] Carvedilol [Coreg] 6.25 mg PO DAILY 08/26/17 [History] Furosemide [Lasix] 20 mg PO DAILY 08/26/17 [History] Liraglutide [Victoza 2-Grant] 0.2 ml SQ DAILY 08/26/17 [History] Lisinopril [Zestril] 20 mg PO DAILY 08/26/17 [History] Loratadine [Claritin] 10 mg PO DAILY PRN 08/26/17 [History] Simvastatin [Zocor] 40 mg PO HS 08/26/17 [History] Spironolactone [Aldactone] 12.5 mg PO DAILY 08/26/17 [History] Venlafaxine XR (24 HR) [Effexor XR] 75 mg PO DAILY 08/26/17 [History] OxyCODONE/APAP 5/325 [Percocet 5/325 MG] 1 each PO Q6HR PRN 7 Days #20 tablet 08/21/18 [Rx] Allergy/AdvReac Type Severity Reaction Status Date / Time No Known Allergies Allergy Verified 08/26/17 07:34 - Meds/Allergy Pre-op Review Medications Reviewed: Yes Allergies Reviewed: Yes Beta Blockers on Current Med List: Yes If Beta Blockers taken, Date/Time (Last Dose taken): 07:30 08/22/2018 Anesthesia Results - Labs 08/22/18 14:38 08/22/18 14:38 echo: Impressions: LVEF 45-50%. Mildly dilated left ventricle. Mild left ventricular diastolic dysfunction. There is no LV thrombus. Normal right ventricular structure and function. Bioprosthetic aortic valve appears well seated in the LVOT. Leaflets were not well visualized. Leaflets were not well visualized. However, Dimensionless Index is 0.6 (normal > 0.25) No evidence of pulmonary hypertension. Cath 2017: Impressions: There is severe two vessel coronary artery disease. Severe to be evaluated for AVR and 2 vessel CABG Recommendations: Optimal medical therapy of patient's disease. Aggressive risk factor modification. AVR and 2 vessel CABG eval at [facility] - Imaging EKG: report reviewed (SINUS RHYTHM POSSIBLE LEFT ATRIAL ENLARGEMENT MARKED LEFT AXIS DEVIATION LEFT VENTRICULAR HYPERTROPHY AND ST-T CHANGE POSSIBLE ANTEROSEPTAL MYOCARDIAL INFARCTION, OF INDETERMINATE AGE) Anesthesia Exam Vital Signs/O2 Sat, Most Current Temp Pulse Resp BP Pulse Ox 97.3 F L 100 18 98/56 98 08/22/18 14:34 08/22/18 16:39 08/22/18 16:39 08/22/18 16:39 08/22/18 16:39 Blood glucose: 548 (On insulin drip) NPO (# of Hours): > 8 hrs Pain Scale: 0 Pain Scale Used: Numeric (1 - 10) - HEENT Pupil (Motor): Pupils equal, EOMI Mallampati: II Teeth: Normal Oral Opening: Greater than 3 - FLIGHT KITCHEN MANAGER LOC: Oriented FLIGHT KITCHEN MANAGER Motor: Normal RUE, Normal LUE, Normal RLE, Normal LLE, Normal Face FL[employer] KITCHEN MANAGER Sensory: Normal: RUE, LUE, RLE, LLE, Face - Cardiac Rhythm: Regular Murmur: None JVD: No Carotid Bruit: No - Pulmonary Breath Sounds: bilateral Clear Respiratory Effort: Symmetrical Anesthesia Assess/Plan ASA Score: 4, E Level of consciousness: Cooperative Anesthetic Plan: General Autologous Blood: Yes Monitoring Plan: Standard Monitors Recovery Plan: PACU
--- NOTE | 2018-08-22 17:21 | General Surgery Consult Note ---
Date of Encounter: 08/22/18 Time of Encounter: 17:00 History of Present Illness Consult date: 08/22/18 History of present illness: The patient initially evaluated in the emergency room earlier today. She came to the emergency room with hyperglycemia and generalized malaise. She was found to have low blood pressure and responded to fluid resuscitation. I evaluated h er weight today and the abdomen was firm but there is no guarding or rebound. She did not have an acute abdomen. After resuscitation a CAT scan was ordered. There is a good deal of fluid around the liver and the patient was complaining of worsening abdominal pain. On repeat physical examination the patient had both guarding and rebound. She met the criteria for acute abdomen with abnormal CAT scan and the decision was made to take her to the operating room emergently. The patient had laparoscopic cholecystectomy yesterday. During entry to the abdomen a Lou technique was used. On initial entry to the abdomen there was concern that we may have injured the small bowel. The midline was opened and a large portion of the small bowel was eviscerated through the wound. The small bowel injury was identified. Throughout the case multiple attempts were used to try and identify any evidence of bowel injury noted to be identified. The cholecystectomy went normally. In the immediate postoperative period she had no abdominal pain. She was sent home yesterday. She will be taken for emergent laparotomy to rule out bowel injury into place drains in the surgical bed in case this is a postoperative bile leak. Past Med Surg Social Fam HX - Past Medical History Medical history: cardiomyopathy, coronary artery disease, CVA, diabetes, hyperlipidemia, hypertension, seizures Additional medical history: legally blind,. RUSSELL. non obstructing calculus of gallbladder. anemia Psychiatric history: anxiety, depression - Past Surgical History Surgical History: angioplasty/stent, breast surgery, , coronary bypass (CABG) Additional surgical history: Breast reduction. AVR w 23mm edwrds pericardial- 10/23/17 - Social History Smoking Status: Never smoker Smokeless Tobacco Status: No Alcohol use: none Drug use: none Medications and Allergies Aspirin [Lo-Dose Aspirin EC] 81 mg PO DAILY 08/26/17 [History] Canagliflozin [Invokana] 300 mg PO DAILY 08/26/17 [History] Carvedilol [Coreg] 6.25 mg PO DAILY 08/26/17 [History] Furosemide [Lasix] 20 mg PO DAILY 08/26/17 [History] Liraglutide [Victoza 2-Grant] 0.2 ml SQ DAILY 08/26/17 [History] Lisinopril [Zestril] 20 mg PO DAILY 08/26/17 [History] Loratadine [Claritin] 10 mg PO DAILY PRN 08/26/17 [History] Simvastatin [Zocor] 40 mg PO HS 08/26/17 [History] Spironolactone [Aldactone] 12.5 mg PO DAILY 08/26/17 [History] Venlafaxine XR (24 HR) [Effexor XR] 75 mg PO DAILY 08/26/17 [History] OxyCODONE/APAP 5/325 [Percocet 5/325 MG] 1 each PO Q6HR PRN 7 Days #20 tablet 08/21/18 [Rx] Allergy/AdvReac Type Severity Reaction Status Date / Time No Known Allergies Allergy Verified 08/26/17 07:34 Review of Systems All systems PM: The remainder of the systems were reviewed and are negative General Surgery Exam Initial Vital Signs Pulse Resp BP Pulse Ox 101 18 69/46 96 08/22/18 14:15 08/22/18 14:15 08/22/18 14:15 08/22/18 14:15 - General physical appearance well developed, well nourished, moderate pain, obese - Neck no masses, trachea midline, no lymphadectomy, no venous distension - Respiratory normal expansion, normal respiratory effort, clear to percussion, clear to auscultation - Cardiovascular Cardiovascular exam: Present: RRR, no murmurs/rubs/gallops - Neurologic Present: CN 2-12 grossly intact, normal coordination, normal sensation - Psychiatric Psychiatric general surgery: Present: appropriate, oriented to person, oriented to place, oriented to time, speech is normal, memory intact Exam Initial Vital Signs Pulse Resp BP Pulse Ox 101 18 69/46 96 08/22/18 14:15 08/22/18 14:15 08/22/18 14:15 08/22/18 14:15 Results - Labs 08/22/18 14:38 08/22/18 14:38 Abnormal lab results RBC 5.53 M/mcL (3.82-4.97) H 08/22/18 14:38 Hct 46.8 % (35.3-44.9) H 08/22/18 14:38 MCH 26.9 pg (28.0-33.3) L 08/22/18 14:38 PT 14.5 Seconds (9.4-12.1) H 08/22/18 14:38 VBG pCO2 25 mmHg (41-51) L 08/22/18 14:57 VBG pO2 212 mmHg (25-50) H 08/22/18 14:57 VBG HCO3 15 mEq/L (21-27) L 08/22/18 14:57 Sodium 128 mEq/L (136-145) L 08/22/18 14:38 Potassium 5.4 mEq/L (3.5-5.1) H 08/22/18 14:38 Chloride 94 mEq/L (98-107) L 08/22/18 14:38 Carbon Dioxide 16 mEq/L (23-29) L 08/22/18 14:38 BUN 31 mg/dL (6-20) H 08/22/18 14:38 Creatinine 1.89 mg/dL (0.60-1.20) H 08/22/18 14:38 Est GFR ( Amer) 34 (> 60) L 08/22/18 14:38 Est GFR (Non-Af Amer) 28 (> 60) L 08/22/18 14:38 Glucose 548 mg/dL (70-105) H* 08/22/18 14:38 POC Glucose 578 mg/dL (70-99) H* 08/22/18 14:23 Lactic Acid 5.3 mmol/L (0.5-2.2) H* 08/22/18 14:38 Calcium 8.5 mg/dL (8.6-10.3) L 08/22/18 14:38 Phosphorus 4.9 mg/dL (2.7-4.5) H 08/22/18 14:38 Magnesium 1.1 mg/dL (1.6-2.6) L 08/22/18 14:38 Troponin I 0.04 ng/mL (< 0.04) H* 08/22/18 14:38 B-Natriuretic Peptide 184 pg/mL (Less than 100) H 08/22/18 14:38 Serum Total Protein 6.3 g/dL (6.4-8.9) L 08/22/18 14:38 Beta-Hydroxybutyric Acd 0.41 mmol/L (0.02-0.27) H 08/22/18 14:38 Urine Glucose (UA) >=1000 mg/dL (Normal) H 08/22/18 15:06 Urine Ketones 15 mg/dL (Negative) H 08/22/18 15:06 Diabetes panel 08/22/18 Range/Units 14:38 Sodium 128 L (136-145) mEq/L Potassium 5.4 H (3.5-5.1) mEq/L Chloride 94 L (98-107) mEq/L Carbon Dioxide 16 L (23-29) mEq/L BUN 31 H (6-20) mg/dL Creatinine 1.89 H (0.60-1.20) mg/dL Glucose 548 H* (70-105) mg/dL Calcium 8.5 L (8.6-10.3) mg/dL AST 32 (13-39) Units/L ALT 24 (7-52) Units/L Alkaline Phosphatase 47 (34-104) Units/L Albumin 3.7 (3.5-5.7) g/dL Calcium panel 08/22/18 Range/Units 14:38 Calcium 8.5 L (8.6-10.3) mg/dL Phosphorus 4.9 H (2.7-4.5) mg/dL Albumin 3.7 (3.5-5.7) g/dL Pituitary panel 08/22/18 Range/Units 14:38 Sodium 128 L (136-145) mEq/L Potassium 5.4 H (3.5-5.1) mEq/L Chloride 94 L (98-107) mEq/L Carbon Dioxide 16 L (23-29) mEq/L BUN 31 H (6-20) mg/dL Creatinine 1.89 H (0.60-1.20) mg/dL Glucose 548 H* (70-105) mg/dL Calcium 8.5 L (8.6-10.3) mg/dL Adrenal panel 08/22/18 Range/Units 14:38 Sodium 128 L (136-145) mEq/L Potassium 5.4 H (3.5-5.1) mEq/L Chloride 94 L (98-107) mEq/L Carbon Dioxide 16 L (23-29) mEq/L BUN 31 H (6-20) mg/dL Creatinine 1.89 H (0.60-1.20) mg/dL Glucose 548 H* (70-105) mg/dL Calcium 8.5 L (8.6-10.3) mg/dL Total Bilirubin 0.7 (0.3-1.0) mg/dL AST 32 (13-39) Units/L ALT 24 (7-52) Units/L Alkaline Phosphatase 47 (34-104) Units/L Albumin 3.7 (3.5-5.7) g/dL All other labs normal. - Imaging CT scan - abdomen: image reviewed (I personally reviewed the CAT scan of the abdomen. There is fluid along the right side of the abdomen and around the liver. This may represent bile from postoperative bile leak but there is also a possibility of small bowel injury.) Consult Discharge Plan - Plan Referrals: NONE,PCP [Primary Care Provider] -
[2018-08-22] MEDS ORDERED: Insulin Regular, Human 100 UNIT/ML IV PRN (17:23)
[2018-08-22] MEDS ORDERED: CefOXitin 1,000 MG VIAL ONE ×2 (17:25→18:13)
[2018-08-22] MEDS ORDERED: *HR* Midazolam HCl 2 MG/2 ML VIAL ONE (17:25)
[2018-08-22] MEDS ORDERED: *HR* FentaNYL (PF) 100 MCG/2 ML VIAL ONE (17:25)
[2018-08-22] MEDS ORDERED: Bupivacaine/EPI 1:200k 0.25%PF 30 ML VIAL ONE (17:25)
[2018-08-22] MEDS ORDERED: *HR* Propofol 200 MG/20 ML VIAL IVP ONE (17:26)
[2018-08-22] MEDS ORDERED: 0.9 % Sodium Chloride 1,000 ML IVC SCH (17:30)
[2018-08-22] MEDS ORDERED: *HR* Succinylcholine 200 MG/10 ML VIAL IVP ONE (17:30)
[2018-08-22] MEDS ORDERED: Ondansetron 4 MG/2 ML VIAL ONE ×2 (17:30→18:18)
[2018-08-22] MEDS ORDERED: Lidocaine -MPF 2% 2 ML VIAL ONE (17:30)
[2018-08-22] MEDS ORDERED: *HR* Rocuronium Bromide 50 MG/5 ML VIAL ONE (17:30)
[2018-08-22] MEDS ORDERED: Dexamethasone 4 MG/ML VIAL ONE ×2 (17:30→18:18)
[2018-08-22] MEDS ORDERED: *HR* Etomidate 40 MG/20 ML VIAL IVP ONE (17:40)
[2018-08-22] MEDS ORDERED: D5% in 0.45% NACL w KCl 20 MEQ/1,000 ML MLS IVC PRN ×2 (17:56→20:00)
[2018-08-22] MEDS ORDERED: D5% in 0.45% NACL 1,000 ML IVC PRN ×2 (17:56→20:00)
[2018-08-22] MEDS ORDERED: *HR* Heparin 5,000 UNIT/ML VIAL SQ SCH (18:00)
[2018-08-22] MEDS ORDERED: Neostigmine Methylsulfate 3 MG/3 ML SYRINGE ONE (18:28)
--- NOTE | 2018-08-22 18:28 | Pulmonology History & Physical ---
Date of Encounter: 08/22/18 Time of Encounter: 17:12 Assessment and Plan (1) DKA (diabetic ketoacidoses) Current visit: Yes Status: Acute (2) Septic shock Current visit: Yes Status: Acute (3) ROBERT (acute kidney injury) Current visit: Yes Status: Acute (4) Elevated troponin Current visit: Yes Status: Acute (5) Hyperglycemia Current visit: Yes Status: Acute (6) DVT prophylaxis Current visit: Yes Status: Acute History of Present Illness HPI: Ms. Hilario is a 53 year old female Past Med Surg Social Fam HX - Past Medical History Medical history: cardiomyopathy, coronary artery disease, CVA, diabetes, hyperlipidemia, hypertension, seizures Additional medical history: legally blind,. RUSSELL. non obstructing calculus of gallbladder. anemia Psychiatric history: anxiety, depression - Past Surgical History Surgical History: angioplasty/stent, breast surgery, , coronary bypass (CABG) Additional surgical history: Breast reduction. AVR w 23mm edwrds pericardial- 10/23/17 - Social History Smoking Status: Never smoker Smokeless Tobacco Status: No Alcohol use: none Drug use: none Medications and Allergies Aspirin [Lo-Dose Aspirin EC] 81 mg PO DAILY 08/26/17 [History] Canagliflozin [Invokana] 300 mg PO DAILY 08/26/17 [History] Carvedilol [Coreg] 6.25 mg PO DAILY 08/26/17 [History] Furosemide [Lasix] 20 mg PO DAILY 08/26/17 [History] Liraglutide [Victoza 2-Grant] 0.2 ml SQ DAILY 08/26/17 [History] Lisinopril [Zestril] 20 mg PO DAILY 08/26/17 [History] Loratadine [Claritin] 10 mg PO DAILY PRN 08/26/17 [History] Simvastatin [Zocor] 40 mg PO HS 08/26/17 [History] Spironolactone [Aldactone] 12.5 mg PO DAILY 08/26/17 [History] Venlafaxine XR (24 HR) [Effexor XR] 75 mg PO DAILY 08/26/17 [History] OxyCODONE/APAP 5/325 [Percocet 5/325 MG] 1 each PO Q6HR PRN 7 Days #20 tablet 08/21/18 [Rx] Allergy/AdvReac Type Severity Reaction Status Date / Time No Known Allergies Allergy Verified 08/26/17 07:34 All Systems: The remainder of the systems were reviewed and are negative Physical Examination Vital Signs: Vital Signs, Last 4 Hours Temp Pulse Resp BP Pulse Ox 08/22/18 16:39 100 18 98/56 98 08/22/18 15:55 96 18 91/53 97 08/22/18 15:04 91 16 102/52 100 08/22/18 14:59 99 16 90/56 100 08/22/18 14:43 98 16 101/55 99 08/22/18 14:34 97.3 F L 101 18 69/46 96 08/22/18 14:15 101 18 69/46 96 Results - Laboratory Findings CBC and BMP: 08/22/18 14:38 08/22/18 14:38 PT/INR, D-dimer PT 14.5 Seconds (9.4-12.1) H 08/22/18 14:38 Abnormal lab findings: Abnormal lab results RBC 5.53 M/mcL (3.82-4.97) H 08/22/18 14:38 Hct 46.8 % (35.3-44.9) H 08/22/18 14:38 MCH 26.9 pg (28.0-33.3) L 08/22/18 14:38 PT 14.5 Seconds (9.4-12.1) H 08/22/18 14:38 VBG pCO2 25 mmHg (41-51) L 08/22/18 14:57 VBG pO2 212 mmHg (25-50) H 08/22/18 14:57 VBG HCO3 15 mEq/L (21-27) L 08/22/18 14:57 Sodium 128 mEq/L (136-145) L 08/22/18 14:38 Potassium 5.4 mEq/L (3.5-5.1) H 08/22/18 14:38 Chloride 94 mEq/L (98-107) L 08/22/18 14:38 Carbon Dioxide 16 mEq/L (23-29) L 08/22/18 14:38 BUN 31 mg/dL (6-20) H 08/22/18 14:38 Creatinine 1.89 mg/dL (0.60-1.20) H 08/22/18 14:38 Est GFR ( Amer) 34 (> 60) L 08/22/18 14:38 Est GFR (Non-Af Amer) 28 (> 60) L 08/22/18 14:38 Glucose 548 mg/dL (70-105) H* 08/22/18 14:38 POC Glucose 578 mg/dL (70-99) H* 08/22/18 14:23 Lactic Acid 5.3 mmol/L (0.5-2.2) H* 08/22/18 14:38 Calcium 8.5 mg/dL (8.6-10.3) L 08/22/18 14:38 Phosphorus 4.9 mg/dL (2.7-4.5) H 08/22/18 14:38 Magnesium 1.1 mg/dL (1.6-2.6) L 08/22/18 14:38 Troponin I 0.04 ng/mL (< 0.04) H* 08/22/18 14:38 B-Natriuretic Peptide 184 pg/mL (Less than 100) H 08/22/18 14:38 Serum Total Protein 6.3 g/dL (6.4-8.9) L 08/22/18 14:38 Beta-Hydroxybutyric Acd 0.41 mmol/L (0.02-0.27) H 08/22/18 14:38 Urine Glucose (UA) >=1000 mg/dL (Normal) H 08/22/18 15:06 Urine Ketones 15 mg/dL (Negative) H 08/22/18 15:06
--- NOTE | 2018-08-22 18:35 | Pulmonology Consult Note ---
Date of Encounter: 08/22/18 Time of Encounter: 18:35 Assessment and Plan (1) DKA (diabetic ketoacidoses) Current Visit: Yes Status: Acute (2) Septic shock Current Visit: Yes Status: Acute (3) ROBERT (acute kidney injury) Current Visit: Yes Status: Acute (4) Elevated troponin Current Visit: Yes Status: Acute (5) Hyperglycemia Current Visit: Yes Status: Acute (6) DVT prophylaxis Current Visit: Yes Status: Acute Past Med Surg Social Fam HX - Past Medical History Medical history: cardiomyopathy, coronary artery disease, CVA, diabetes, hyperlipidemia, hypertension, seizures Additional medical history: legally blind,. RUSSELL. non obstructing calculus of gallbladder. anemia Psychiatric history: anxiety, depression - Past Surgical History Surgical History: angioplasty/stent, breast surgery, , coronary bypass (CABG) Additional surgical history: Breast reduction. AVR w 23mm edwrds pericardial- 10/23/17 - Social History Smoking Status: Never smoker Smokeless Tobacco Status: No Alcohol use: none Drug use: none Medications and Allergies Aspirin [Lo-Dose Aspirin EC] 81 mg PO DAILY 08/26/17 [History] Canagliflozin [Invokana] 300 mg PO DAILY 08/26/17 [History] Carvedilol [Coreg] 6.25 mg PO DAILY 08/26/17 [History] Furosemide [Lasix] 20 mg PO DAILY 08/26/17 [History] Liraglutide [Victoza 2-Grant] 0.2 ml SQ DAILY 08/26/17 [History] Lisinopril [Zestril] 20 mg PO DAILY 08/26/17 [History] Loratadine [Claritin] 10 mg PO DAILY PRN 08/26/17 [History] Simvastatin [Zocor] 40 mg PO HS 08/26/17 [History] Spironolactone [Aldactone] 12.5 mg PO DAILY 08/26/17 [History] Venlafaxine XR (24 HR) [Effexor XR] 75 mg PO DAILY 08/26/17 [History] OxyCODONE/APAP 5/325 [Percocet 5/325 MG] 1 each PO Q6HR PRN 7 Days #20 tablet 08/21/18 [Rx] Allergy/AdvReac Type Severity Reaction Status Date / Time No Known Allergies Allergy Verified 08/26/17 07:34 All Systems: The remainder of the systems were reviewed and are negative Physical Examination Vital Signs: Vital Signs, Last 4 Hours Pulse Resp BP Pulse Ox 08/22/18 17:20 107 16 95/55 99 08/22/18 16:39 100 18 98/56 98 08/22/18 15:55 96 18 91/53 97 08/22/18 15:04 91 16 102/52 100 08/22/18 14:59 99 16 90/56 100 08/22/18 14:43 98 16 101/55 99 Results - Laboratory Findings CBC and BMP: 08/22/18 14:38 08/22/18 14:38 PT/INR, D-dimer PT 14.5 Seconds (9.4-12.1) H 08/22/18 14:38 Abnormal lab findings: Abnormal lab results RBC 5.53 M/mcL (3.82-4.97) H 08/22/18 14:38 Hct 46.8 % (35.3-44.9) H 08/22/18 14:38 MCH 26.9 pg (28.0-33.3) L 08/22/18 14:38 PT 14.5 Seconds (9.4-12.1) H 08/22/18 14:38 VBG pCO2 25 mmHg (41-51) L 08/22/18 14:57 VBG pO2 212 mmHg (25-50) H 08/22/18 14:57 VBG HCO3 15 mEq/L (21-27) L 08/22/18 14:57 Sodium 128 mEq/L (136-145) L 08/22/18 14:38 Potassium 5.4 mEq/L (3.5-5.1) H 08/22/18 14:38 Chloride 94 mEq/L (98-107) L 08/22/18 14:38 Carbon Dioxide 16 mEq/L (23-29) L 08/22/18 14:38 BUN 31 mg/dL (6-20) H 08/22/18 14:38 Creatinine 1.89 mg/dL (0.60-1.20) H 08/22/18 14:38 Est GFR ( Amer) 34 (> 60) L 08/22/18 14:38 Est GFR (Non-Af Amer) 28 (> 60) L 08/22/18 14:38 Glucose 548 mg/dL (70-105) H* 08/22/18 14:38 POC Glucose 578 mg/dL (70-99) H* 08/22/18 14:23 Lactic Acid 5.3 mmol/L (0.5-2.2) H* 08/22/18 14:38 Calcium 8.5 mg/dL (8.6-10.3) L 08/22/18 14:38 Phosphorus 4.9 mg/dL (2.7-4.5) H 08/22/18 14:38 Magnesium 1.1 mg/dL (1.6-2.6) L 08/22/18 14:38 Troponin I 0.04 ng/mL (< 0.04) H* 08/22/18 14:38 B-Natriuretic Peptide 184 pg/mL (Less than 100) H 08/22/18 14:38 Serum Total Protein 6.3 g/dL (6.4-8.9) L 08/22/18 14:38 Beta-Hydroxybutyric Acd 0.41 mmol/L (0.02-0.27) H 08/22/18 14:38 Urine Glucose (UA) >=1000 mg/dL (Normal) H 08/22/18 15:06 Urine Ketones 15 mg/dL (Negative) H 08/22/18 15:06 - Microbiology Findings Microbiology Findings: Microbiology, Last 48 Hours 08/22/18 14:32 Blood Culture - Preliminary Peripheral Venipuncture Culture is incubating and being continuously mo nitored for growth. Final report to follow. 08/22/18 14:39 Blood Culture - Preliminary Peripheral Venipuncture Culture is incubating and being continuously monitored for growth. Final report to follow. - Clinical Findings Intake & Output: Intake & Output 08/22/18 08/22/18 08/22/18 07:59 15:59 23:59 Intake Total 2119 500 / 500 Balance 2119 500 / 500 Weight 81.647 kg Consult Discharge Plan - Plan Referrals: NONE,PCP [Primary Care Provider] -
[2018-08-22] MEDS ORDERED: EPHEDrine 50 MG/ML VIAL ONE (18:37)
--- NOTE | 2018-08-22 18:45 | Operative Note ---
Date of procedure: 08/22/18 Pre-op diagnosis: Acute abdomen Post-op diagnosis: other (Small bowel enterotomy (iatrogenic)) Procedure: Exploratory laparotomy and repair of small bowel enterotomy Anesthesia: BERTIN Surgeon: Anand Almodovar Was there an janitorial assistant present: Yes Milling Supervisor: Nathalie Wasserman Estimated blood loss (cc): 20 Specimen: None Condition: stable Disposition: PACU Procedure in Detail: After informed consent patient was taken to the operating room emergently. She is placed in supine position given adequate general endotracheal anesthesia. The abdomen was prepped and draped in sterile fashion utilizing ChloraPrep standard draping techniques. Timeout was taken and the patient was identified. I made an upper abdominal midline incision. I am in the abdomen to find a large amount of small bowel contents. The abdomen was suctioned of a high volume of small bowel contents. I ran the small bowel from proximal to distal. I was able to identify a small bowel enterotomy. This enterotomy was about 1 cm in size and was actively draining small bowel contents. The enterotomy was at the junction the mesentery and small bowel. This was isolated the tissues were in excellent condition. I decided to close primarily. The enterotomy was closed with 2 interrupted stitches of mucosal 3-0 Vicryl. The seromuscular layer was closed with 4 stitches of interrupted 3-0 silk. This gave an excellent technical result. The abdomen was irrigated with copious amounts of antibiotic containing solution. At least 4 L was used. Mefoxin was placed in the irrigation. The enterotomy repair was examined multiple times and found to be intact. There were no other areas of injury identified on the small bowel. The gallbladder fossa was free of any evidence of bile leak or bleeding the abdomen was closed. I used looped 0 PDS on the fascia and interrupted Vicryl on the subcutaneous tissue and skin clips were used on the skin. She tolerated the procedure well and was hemodynamically stable throughout the procedure. She is transferred to the intensive care unit in critical condition
[2018-08-22] MEDS ORDERED: *HR* Vasopressin 20 UNIT/ML VIAL ONE (18:47)
[2018-08-22] MEDS ORDERED: Albumin Human 5% 37.5 GM/750 ML VIAL ONE (18:54)
[2018-08-22] MEDS ORDERED: FentaNYL (PF) 1,000 MCG in 0.9 % Sodium Chloride 80 ML IVC SCH (19:00)
--- NOTE | 2018-08-22 19:39 | Procedure Note ---
Date of procedure: 08/22/18 Pre-op diagnosis: Septic shock and small bowel perforation Post-op diagnosis: same Procedure: Left subclavian central line placement After identifying the patient was hypotensive and we proceeded on an emergent basis in order to start with Levophed. The left subclavian area was prepped and draped in sterile fashion utilizing ChloraPrep and standard draping techniques. Timeout was taken and patient was identified. I introduced the Seldinger needle into the subclavian vein on first pass. The wire passed without difficulty. A charu the skin with a #11 blade and dilated the tract. I placed the triple-lumen catheter and secured this to 23 cm. All 3 ports aspirated normally and flushed normally. All were flushed with saline and I placed the Luer-Nilson on each lumen. This was sutured in place with the bio protective membrane in place. Sterile dressing is applied. Stat portable chest x-rays were ordered. Patient tolerated the procedure well. She continues under continuous critical care. Anesthesia: local Surgeon: Anand Almodovar Was there an surgical assistant certified present: No Estimated blood loss (cc): 2 Specimen: None Pathology: none sent Condition: stable Disposition: ICU
[2018-08-22] MEDS ORDERED: Ondansetron 4 MG/2 ML VIAL IVP PRN (19:47)
[2018-08-22] MEDS ORDERED: OXYCODONE Oral CONC 10 MG/0.5 ML ORAL.SYG SL PRN (19:47)
[2018-08-22] MEDS ORDERED: Artificial Tears SOLN 15 ML BOTTLE BOTH EYES PRN (19:48)
--- NOTE | 2018-08-22 19:56 | Internal Med History&Physical ---
<Jt Zarate - Last Filed: 08/22/18 21:27> Date of Encounter: 08/22/18 Time of Encounter: 19:56 Internal Medicine - H&P: HPI Chief complaint: Abdominal Pain Admitted From: Home Plans for Post Hospital Care: Home History of present illness: Ms. Hilario is a 53 year old female who is recently POD#1 from a laparoscopic cholecystectomy for cholelithiasis with chronic cholangitis with Dr. Almodovar. There was some reported concern for risk of bowel perforation at that time, but the bowels were thoroughly ran and examined. Pt was discharged to home, but presented to the ED complaining of continued abdominal pain accompanied by hyperglycemia and hypotension. CT abdomen/pelvis revealed a large amount of free fluid with tiny bubbles of free intra-abdominal air. Dr. Almodovar took pt back to OR for an exploratory laparotomy with repair of small bowel enterotomy. Labs revealed DKA with hyperglycemia of 578, anion gap of 18, lactic acid of 5.3, and beta-hydroxybutyric acid of 0.41. Pt is seen by this provider in the ICU shortly after post-op. Dr. Almodovar recently placed a central line. Pt is currently sedated with Fentanyl, but responsive to painful stimuli. Family at bedside. Past Med Surg Social Fam HX - Past Medical History Medical history: cardiomyopathy, coronary artery disease, CVA, diabetes, hyperlipidemia, hypertension, seizures Additional medical history: legally blind,. RUSSELL. non obstructing calculus of gallbladder. anemia Psychiatric history: anxiety, depression - Past Surgical History Surgical History: angioplasty/stent, breast surgery, , coronary bypass (CABG) Additional surgical history: Breast reduction. AVR w 23mm edwrds pericardial- 10/23/17 - Social History Smoking Status: Never smoker Smokeless Tobacco Status: No Alcohol use: none Drug use: none Internal Medicine - H&P: Meds Aspirin [Lo-Dose Aspirin EC] 81 mg PO DAILY 08/26/17 [History] Canagliflozin [Invokana] 300 mg PO DAILY 08/26/17 [History] Carvedilol [Coreg] 6.25 mg PO DAILY 08/26/17 [History] Furosemide [Lasix] 20 mg PO DAILY 08/26/17 [History] Liraglutide [Victoza 2-Grant] 0.2 ml SQ DAILY 08/26/17 [History] Lisinopril [Zestril] 20 mg PO DAILY 08/26/17 [History] Loratadine [Claritin] 10 mg PO DAILY PRN 08/26/17 [History] Simvastatin [Zocor] 40 mg PO HS 08/26/17 [History] Spironolactone [Aldactone] 12.5 mg PO DAILY 08/26/17 [History] Venlafaxine XR (24 HR) [Effexor XR] 75 mg PO DAILY 08/26/17 [History] OxyCODONE/APAP 5/325 [Percocet 5/325 MG] 1 each PO Q6HR PRN 7 Days #20 tablet 08/21/18 [Rx] Allergy/AdvReac Type Severity Reaction Status Date / Time No Known Allergies Allergy Verified 08/26/17 07:34 ROS unobtainable: due to endotracheal tube All Systems PM: A 10-system review of systems was performed and is negative for pertinent findings except as documented above in the HPI. - Constitutional Vitals: Temp Pulse Resp BP Pulse Ox 97.3 F L 107 16 95/55 100 08/22/18 14:34 08/22/18 17:20 08/22/18 19:20 08/22/18 17:20 08/22/18 19:20 General appearance: Present: A&O X 0, mild distress Exam: General: Obese female currently sedated and mechanically ventilated Head: Normocephalic and atraumatic Eyes: PERRL, extraocular motions appear intact but difficult to assess with sedation, sclera anicteric, conjunctiva pink Neck: supple, trachea midline Lungs: CTA bilaterally, mechanically ventilated. no wheezes, rales, or rhonchi. Heart: RRR +s1 +s2 No murmurs, clicks, or rubs appreciated GI: abdomen soft, appropriately TTP, mild distention. hypoactive bowel sounds Extremities: warm, peripheral pulses palpable and symmetrical. no cyanosis. Trace pitting edema in bilateral LEs Neuro: sedated Skin: warm, dry, intact. Clean and dry dressing in place over midline abdominal incision. Internal Med - H&P Results - Labs CBC & Chem 7: 08/22/18 14:38 08/22/18 20:20 Labs: Short CBC 08/22/18 Range/Units 14:38 WBC 5.1 (4.3-11.1) K/mcL Hgb 14.9 D (11.5-15.4) g/dL Hct 46.8 H (35.3-44.9) % Plt Count 328 (140-400) K/mcL Neutrophils # 3.8 (1.6-8.9) K/mcL BMP 08/22/18 14:38 Sodium 128 L Potassium 5.4 H Chloride 94 L Carbon Dioxide 16 L BUN 31 H Creatinine 1.89 H Glucose 548 H* Calcium 8.5 L Cardiac Enzymes 08/22/18 Range/Units 14:38 Troponin I 0.04 H* (< 0.04) ng/mL Liver Function 08/22/18 Range/Units 14:38 Total Bilirubin 0.7 (0.3-1.0) mg/dL Direct Bilirubin 0.1 (0.0-0.2) mg/dL AST 32 (13-39) Units/L ALT 24 (7-52) Units/L Alkaline Phosphatase 47 (34-104) Units/L Albumin 3.7 (3.5-5.7) g/dL Urine 08/22/18 Range/Units 15:06 Urine Color Yellow (Yellow) Urine Clarity Clear (Clear) Urine pH 6.0 (5.0-8.0) pH Units Ur Specific [place] 1.024 (1.010-1.025) Urine Protein Negative (Neg-Trace) mg/dL Urine Glucose (UA) >=1000 H (Normal) mg/dL - ABG Interpretation ABG results: 08/22/18 14:57 VBG pH 7.38 VBG pCO2 25 L VBG pO2 212 H VBG HCO3 15 L - Impressions ITS Impressions Chest X-Ray 08/22/18 14:24 IMPRESSION: No acute cardiopulmonary disease. D/ / Manohar Harmon MD / Manohar Harmon MD Interpreting Provider: Manohar Harmon MD Abdomen/Pelvis CT 08/22/18 15:47 IMPRESSION: 1. Large amount of free fluid in the abdomen and pelvis as detailed above with recent history of cholecystectomy. Tiny bubbles of free intra-abdominal air in the upper abdomen. The possibility of a bile leak is difficult to exclude given these findings. Surgical clips in the gallbladder fossa consistent with cholecystectomy. 2. Interloop fluid and mild nonspecific prominence of the wall of multiple small bowel loops in the lower abdomen which could be secondary to the free fluid in the abdomen. Other differential considerations include nonspecific enteritis. Evaluation of lactate level recommended. 3. Mild scattered colonic diverticulosis. Nonvisualization of the appendix. 4. Small hiatal hernia. 5. Coronary artery disease. Evidence of prior valvular surgery. 6. Stranding and gas in the subcutaneous fat of the anterior abdominal wall consistent with recent laparoscopic cholecystectomy. 7. Grade 1 spondylolisthesis of L5 on S1. Critical results were called by Dr. Yves Morgan MD to Philippe Fernandez on 08/22/2018 at 16:40. D/ / 08/22/2018 16:48:30 Yves Morgan MD / [email or web address] Interpreting Provider: Yves Morgan MD - Assessment and plan (1) Septic shock Current Visit: Yes Status: Acute Assessment and plan: Most likely caused by small bowel perforation during lap harry on 08/21 Afebrile Continues to be tachycardic at 102 RR per mechanical ventilation WBC was 5.1 on presentation in ED Lactic acid elevated at 5.3 BPs on initial presentation were decreased at 69/46, requiring Levophed Went for ex-lap with small bowel repair this evening with Dr Almodovar Receiving copious IV fluids for concomitant DKA Continue Zosyn (Day 1) Continue Levophed and titrate for MAP >65 (2) DKA (diabetic ketoacidoses) Current Visit: Yes Status: Acute Assessment and plan: Pt presented complaining of hyperglycemia Likely 2/2 stress with perforated bowel Initial blood glucose of 578 Lactic acid elevated at 5.3 Beta-hydroxybutryrate 0.41 UA significantly positive for glucose and ketones DKA protocol with fluid resuscitation and insulin drip Will bridge to SQ insulin once anion gap has closed Continue to monitor electrolytes closely Qualifiers: Diabetes mellitus type: type 2 Diabetes mellitus complication detail: without coma Qualified Code(s): E11.10 - Type 2 diabetes mellitus with ketoacidosis without coma (3) Hyperglycemia Current Visit: Yes Status: Acute Assessment and plan: plan as above in DKA (4) ROBERT (acute kidney injury) Current Visit: Yes Status: Acute Assessment and plan: Likely related to hypoperfusion with septic shock and perforated bowel Receiving copious IV fluids with concomitant DKA Continue to monitor kidney functions and avoid nephrotoxins (5) Elevated troponin Current Visit: Yes Status: Acute Assessment and plan: Likely due to demand ischemia Will continue to trend (6) DVT prophylaxis Current Visit: Yes Status: Acute Assessment and plan: EPCDs (7) Status post exploratory laparotomy Current Visit: Yes Status: Acute Assessment and plan: POD#1 from lap harry with Dr Almodovar POD#0 from ex-lap with small bowel repair also with Dr Almodovar Post surgical care per surgery - Time Spent With Patient Total time spent is greater than 50% in coordination of care (as documented) at patient's floor/unit and/or counseling patient: <Ragini Greenberg - Last Filed: 08/23/18 06:25> Date of Encounter: 08/22/18 Internal Medicine - H&P: HPI History of present illness: Ms. Hilario is a 53 year old female All Systems PM: A 10-system review of systems was performed and is negative for pertinent findings except as documented above in the HPI. - Constitutional Vitals: Temp Pulse Resp BP Pulse Ox 98.7 F 116 16 109/66 99 08/23/18 04:43 08/23/18 06:00 08/23/18 06:08 08/23/18 06:08 08/23/18 06:08 Internal Med - H&P Results - Labs CBC & Chem 7: 08/23/18 04:19 08/23/18 04:19 Labs: Short CBC 08/22/18 08/23/18 Range/Units 14:38 04:19 WBC 5.1 3.6 L (4.3-11.1) K/mcL Hgb 14.9 D 10.8 L D (11.5-15.4) g/dL Hct 46.8 H 33.4 L (35.3-44.9) % Plt Count 328 190 (140-400) K/mcL Neutrophils # 3.8 2.7 (1.6-8.9) K/mcL BMP 08/22/18 08/22/18 08/23/18 14:38 20:20 00:07 Sodium 128 L 131 L 133 L Potassium 5.4 H 4.3 4.6 Chloride 94 L 106 109 H Carbon Dioxide 16 L 17 L 20 L BUN 31 H 29 H 30 H Creatinine 1.89 H 1.37 H 1.21 H Glucose 548 H* 251 H 109 H Calcium 8.5 L 7.4 L 7.0 L 08/23/18 04:19 Sodium 133 L Potassium 5.3 H Chloride 108 H Carbon Dioxide 20 L BUN 30 H Creatinine 1.17 Glucose 169 H Calcium 7.0 L Cardiac Enzymes 08/22/18 08/22/18 Range/Units 14:38 20:20 Troponin I 0.04 H* 0.05 H* (< 0.04) ng/mL Liver Function 08/22/18 Range/Units 14:38 Total Bilirubin 0.7 (0.3-1.0) mg/dL Direct Bilirubin 0.1 (0.0-0.2) mg/dL AST 32 (13-39) Units/L ALT 24 (7-52) Units/L Alkaline Phosphatase 47 (34-104) Units/L Albumin 3.7 (3.5-5.7) g/dL Urine 08/22/18 Range/Units 15:06 Urine Color Yellow (Yellow) Urine Clarity Clear (Clear) Urine pH 6.0 (5.0-8.0) pH Units Ur Specific [place] 1.024 (1.010-1.025) Urine Protein Negative (Neg-Trace) mg/dL Urine Glucose (UA) >=1000 H (Normal) mg/dL - ABG Interpretation ABG results: 08/22/18 08/22/18 08/23/18 14:57 20:46 04:23 ABG pH 7.29 L 7.33 ABG pCO2 38 39 ABG pO2 102 46 L* ABG HCO3 18 L 21 ABG Total CO2 20 22 ABG O2 Saturation 97 78 L ABG Base Excess -8 L -5 L VBG pH 7.38 VBG pCO2 25 L VBG pO2 212 H VBG HCO3 15 L 08/23/18 05:02 ABG pH 7.41 ABG pCO2 30 L ABG pO2 108 H D ABG HCO3 19 L ABG Total CO2 20 ABG O2 Saturation 98 ABG Base Excess -6 L VBG pH VBG pCO2 VBG pO2 VBG HCO3 - Impressions ITS Impressions Chest X-Ray 08/22/18 14:24 IMPRESSION: No acute cardiopulmonary disease. D/ / Manohar Harmon MD / Manohar Harmon MD Interpreting Provider: Manohar Harmon MD Abdomen/Pelvis CT 08/22/18 15:47 IMPRESSION: 1. Large amount of free fluid in the abdomen and pelvis as detailed above with recent history of cholecystectomy. Tiny bubbles of free intra-abdominal air in the upper abdomen. The possibility of a bile leak is difficult to exclude given these findings. Surgical clips in the gallbladder fossa consistent with cholecystectomy. 2. Interloop fluid and mild nonspecific prominence of the wall of multiple small bowel loops in the lower abdomen which could be secondary to the free fluid in the abdomen. Other differential considerations include nonspecific enteritis. Evaluation of lactate level recommended. 3. Mild scattered colonic diverticulosis. Nonvisualization of the appendix. 4. Small hiatal hernia. 5. Coronary artery disease. Evidence of prior valvular surgery. 6. Stranding and gas in the subcutaneous fat of the anterior abdominal wall consistent with recent laparoscopic cholecystectomy. 7. Grade 1 spondylolisthesis of L5 on S1. Critical results were called by Dr. Yves Morgan MD to Philippe Fernandez on 08/22/2018 at 16:40. D/ / 08/22/2018 16:48:30 Yves Morgan MD / [email or web address] Interpreting Provider: Yves Morgan MD Chest X-Ray 08/22/18 19:33 IMPRESSION: Mild bibasilar pulmonary opacities either due to atelectasis or pneumonia. Appropriate positioning of the endotracheal tube, nasogastric tube, and left subclavian central venous catheter. No pneumothorax. Tip of the catheter lying in the right atrium. D/ / Sergio Cervantes MD / Sergio Cervantes MD Interpreting Provider: Sergio Cervantes MD - Assessment and plan (1) Septic shock Current Visit: Yes Status: Acute (2) ROBERT (acute kidney injury) Current Visit: Yes Status: Acute (3) Elevated troponin Current Visit: Yes Status: Acute (4) Hyperglycemia Current Visit: Yes Status: Acute (5) DKA (diabetic ketoacidoses) Current Visit: Yes Status: Acute Qualifiers: Diabetes mellitus type: type 2 Diabetes mellitus complication detail: without coma Qualified Code(s): E11.10 - Type 2 diabetes mellitus with ketoacidosis without coma (6) DVT prophylaxis Current Visit: Yes Status: Acute (7) Status post exploratory laparotomy Current Visit: Yes Status: Acute - Time Spent With Patient Total time spent is greater than 50% in coordination of care (as documented) at patient's floor/unit and/or counseling patient: - Attending Attestation I performed a history and physical examination of the patient and discussed her management with the resident. I reviewed the resident's note and agree with the plan of care. Case was discussed with Dr. Almodovar. We will manage DKA and septic shock secondary to small bowel perforation. At least 40 minutes of critical care time was spent in the management of this patient.
[2018-08-22] MEDS: Chlorhexidine Rinse 15 ML MOUTHWASH MM SCH (20:00)
[2018-08-22] MEDS: Artificial Tears SOLN 15 ML BOTTLE BOTH EYES SCH (20:00)
[2018-08-22] MEDS: Norepinephrine 4 MG in D5% in Water 250 ML IVC SCH (20:09)
[2018-08-22] MEDS: FentaNYL (PF) 1,000 MCG in 0.9 % Sodium Chloride 80 ML IVC SCH (20:14)
[2018-08-22 20:51] LABS: ABG Base Excess -8 mEq/L (-2 to 3); ABG HCO3 18 mEq/L (21-27); ABG Oxygen Saturation 97 % (95-98); ABG PCO2 38 mmHg (35-45); ABG PH 7.29 pH Units (7.32-7.45); ABG PO2 102 mmHg (85-104); ABG TCO2 20 mEq/L (20-26); Blood Gas Modality ASSIST CONTROL; Blood Gas PEEP 5 cm H2O; Blood Gas Respiration Rate 14; Blood Gas VT 450 cc
[2018-08-22 21:05] LABS: Calcium 7.4 mg/dL (8.6-10.3); Potassium 4.3 mEq/L (3.5-5.1)
[2018-08-22] MEDS ORDERED: Insulin DETEMIR 100 UNIT/ML X5UNITS SQ ONE (21:24)
[2018-08-22] MEDS ORDERED: 0.9 % Sodium Chloride w KCl 20 MEQ/1,000 ML MLS IVC ONE (21:25)
[2018-08-22] MEDS: 0.9 % Sodium Chloride w KCl 20 MEQ/1,000 ML MLS IVC SCH ×2 (21:30→23:31)
[2018-08-22 21:46] LABS: Troponin I 0.05 ng/mL (< 0.04)
[2018-08-22] MEDS: 0.45 % Sodium Chloride w/KCl 20 MEQ/1,000 ML MLS IVC SCH (23:33)
[2018-08-23] MEDS: Piperacillin/Tazobactam 3.375 GM in 0.9 % Sodium Chloride Mini Bag 100 ML IVPB SCH ×4 (00:04→23:00)
[2018-08-23] MEDS: Artificial Tears SOLN 15 ML BOTTLE BOTH EYES SCH ×6 (00:06→19:52)
[2018-08-23 00:41] LABS: Potassium 4.6 mEq/L (3.5-5.1)
[2018-08-23] MEDS: 0.9 % Sodium Chloride 1,000 ML IVC SCH ×3 (01:02→16:58)
[2018-08-23] MEDS: 0.45 % Sodium Chloride w/KCl 20 MEQ/1,000 ML MLS IVC SCH ×5 (01:23→08:32)
[2018-08-23] MEDS: 0.9 % Sodium Chloride w KCl 20 MEQ/1,000 ML MLS IVC SCH ×6 (01:24→08:35)
[2018-08-23 04:27] LABS: ABG Base Excess -5 mEq/L (-2 to 3); ABG HCO3 21 mEq/L (21-27); ABG Oxygen Saturation 78 % (95-98); ABG PCO2 39 mmHg (35-45); ABG PH 7.33 pH Units (7.32-7.45); ABG PO2 46 mmHg (85-104); ABG TCO2 22 mEq/L (20-26)
[2018-08-23 04:36] LABS: Hematocrit 33.4 % (35.3-44.9); Mean Corpuscular HGB Conc 32.3 g/dL (31.6-35.5); Mean Corpuscular Hemoglobin 27.1 pg (28.0-33.3); Mean Corpuscular Volume 83.9 fL (83.0-100.0); Platelet Count 190 K/mcL (140-400); Red Blood Count 3.98 M/mcL (3.82-4.97); Red Cell Distribution Width 13.7 % (11.5-14.5)
[2018-08-23 04:40] LABS: Hemoglobin 10.8 g/dL (11.5-15.4)
[2018-08-23 04:55] LABS: Magnesium 1.3 mg/dL (1.6-2.6); Phosphorous 3.1 mg/dL (2.7-4.5); Potassium 5.3 mEq/L (3.5-5.1)
[2018-08-23 05:00] LABS: Lymphocytes # 0.5 K/mcL (0.6-4.6); Monocytes # 0.2 K/mcL (0.0-1.3); Neutrophils # 2.7 K/mcL (1.6-8.9)
[2018-08-23 05:01] LABS: Platelet Estimate Normal (Normal)
[2018-08-23 05:05] LABS: ABG Base Excess -6 mEq/L (-2 to 3); ABG HCO3 19 mEq/L (21-27); ABG Oxygen Saturation 98 % (95-98); ABG PCO2 30 mmHg (35-45); ABG PH 7.41 pH Units (7.32-7.45); ABG PO2 108 mmHg (85-104); ABG TCO2 20 mEq/L (20-26); Blood Gas Modality ASSIST CONTROL; Blood Gas PEEP 5 cm H2O; Blood Gas Respiration Rate 14; Blood Gas VT 450 cc
[2018-08-23 06:35] LABS: VBG Ionized Calcium 1.02 mmol/L (1.15-1.35)
--- NOTE | 2018-08-23 07:38 | Pulmonology Consult Note ---
Addendum entered and electronically signed by Haylie Gasca 08/23/18 16:17: Note was singed before completed by resident and work was deleted; resident note added below 53 Y/o F hx of DM taked back to OR yesterday for ex lap with small bowel repair after POD1 lap harry with doctor Scooby. She complained of weakness and decreased mentation . She was found to hyperglycemic with BG 578, gap of 18, lactic acid 5.3 and positive beta-hydroxybutyric. DKA protocol with aggressive hydration was continued overnight. Early this morning she passed cpap trial and was ex tubated. Physical Exam HENT: noniteric eyes, mucus membranes dry Cardiac : RRR Resp: mild increase effort with coarse breath sound bilat Abd: soft distened and tender, BSx4 Extremities, normal ROM, no defect Neuro: non focal exam , A&Ox3 Plan 1. DKA with out coma improved with gap closed stop DKA protocols and start maintenance fluids. Start ISS. Replete hypomagnesium and hypocalcemia per elect rolyte protocol 2. Sepsis due to peritonitis with abdominal spillage. Pressers titrated off. Continue zosyn for abdominal species coverage. 3. ROBERT resolved with scr 1.17 from 1.89, now near baseline at 1 continue maintenance fluids started by surgery 4. Anemia Hg 10.8 form 14 with baseline around 12; acute on chronic likely etiology combination of post surgical and dilution as all cells lines mild decrease 5. Elevated troponin with out EKG changes, trended as 0.05, 0.04 to 0.03 6. DVT prophylaxis : heparin sq Original Note: <Damon Juárez W - Last Filed: 08/23/18 11:49> Date of Encounter: 08/23/18 Medications and Allergies Aspirin [Lo-Dose Aspirin EC] 81 mg PO DAILY 08/26/17 [History] Canagliflozin [Invokana] 300 mg PO DAILY 08/26/17 [History] Carvedilol [Coreg] 6.25 mg PO DAILY 08/26/17 [History] Furosemide [Lasix] 20 mg PO DAILY 08/26/17 [History] Liraglutide [Victoza 2-Grant] 0.2 ml SQ DAILY 08/26/17 [History] Lisinopril [Zestril] 20 mg PO DAILY 08/26/17 [History] Loratadine [Claritin] 10 mg PO DAILY PRN 08/26/17 [History] Simvastatin [Zocor] 40 mg PO HS 08/26/17 [History] Spironolactone [Aldactone] 12.5 mg PO DAILY 08/26/17 [History] Venlafaxine XR (24 HR) [Effexor XR] 75 mg PO DAILY 08/26/17 [History] OxyCODONE/APAP 5/325 [Percocet 5/325 MG] 1 each PO Q6HR PRN 7 Days #20 tablet 08/21/18 [Rx] Allergy/AdvReac Type Severity Reaction Status Date / Time No Known Allergies Allergy Verified 08/26/17 07:34 All Systems: The remainder of the systems were reviewed and are negative Physical Examination Vital Signs: Vital Signs, Last 4 Hours Temp Pulse Resp BP Pulse Ox 08/23/18 08:32 20 08/23/18 08:16 99.3 F 08/23/18 06:08 16 109/66 99 08/23/18 06:00 116 18 109/66 99 Ventilator Settings Ventilator Settings: Ventilator Settings, Last 8 Hours Ventilator Tidal Volume 450 Setting Ventilator Tidal Volume 450 Setting Ventilator Tidal Volume 450 Setting Ventilator Tidal Volume 450 Setting Ventilator Tidal Volume 450 Setting Ventilator Tidal Volume 450 Setting Ventilator Tidal Volume 450 Setting Ventilator Tidal Volume 450 Setting Ventilator Tidal Volume 450 Setting Ventilator Respiratory Rate 14 Setting Ventilator Respiratory Rate 14 Setting Ventilator Respiratory Rate 14 Setting Ventilator Respiratory Rate 14 Setting Ventilator Respiratory Rate 14 Setting Ventilator Respiratory Rate 14 Setting Ventilator Respiratory Rate 14 Setting Ventilator Respiratory Rate 14 Setting Ventilator Respiratory Rate 14 Setting Actual Respiratory Rate 16 Actual Respiratory Rate 18 Actual Respiratory Rate 15 Actual Respiratory Rate 19 Actual Respiratory Rate 16 Actual Respiratory Rate 16 Actual Respiratory Rate 19 Actual Respiratory Rate 16 Positive End Expiratory 5 Pressure Positive End Expiratory 5 Pressure Positive End Expiratory 5 Pressure Positive End Expiratory 5 Pressure Positive End Expiratory 5 Pressure Positive End Expiratory 5 Pressure Positive End Expiratory 5 Pressure Positive End Expiratory 5 Pressure Positive End Expiratory 5 Pressure Peak Inspiratory Airway 21 Pressure Peak Inspiratory Airway 21 Pressure Peak Inspiratory Airway 21 Pressure Peak Inspiratory Airway 22 Pressure Peak Inspiratory Airway 22 Pressure Peak Inspiratory Airway 22 Pressure Peak Inspiratory Airway 22 Pressure Peak Inspiratory Airway 23 Pressure Results - Laboratory Findings CBC and BMP: 08/23/18 04:19 08/23/18 04:19 ABG ABG pH 7.41 pH Units (7.32-7.45) 08/23/18 05:02 ABG pCO2 30 mmHg (35-45) L 08/23/18 05:02 ABG pO2 108 mmHg (85-104) H D 08/23/18 05:02 ABG O2 Saturation 98 % (95-98) 08/23/18 05:02 PT/INR, D-dimer PT 14.5 Seconds (9.4-12.1) H 08/22/18 14:38 Abnormal lab findings: Abnormal lab results WBC 3.6 K/mcL (4.3-11.1) L 08/23/18 04:19 Hgb 10.8 g/dL (11.5-15.4) L D 08/23/18 04:19 Hct 33.4 % (35.3-44.9) L 08/23/18 04:19 MCH 27.1 pg (28.0-33.3) L 08/23/18 04:19 Band Neutrophils % 14.0 % (0-4) H 08/23/18 04:19 Metamyelocytes % 4.0 % (0) H 08/23/18 04:19 Lymphocytes # 0.5 K/mcL (0.6-4.6) L 08/23/18 04:19 PT 14.5 Seconds (9.4-12.1) H 08/22/18 14:38 ABG pCO2 30 mmHg (35-45) L 08/23/18 05:02 ABG pO2 108 mmHg (85-104) H D 08/23/18 05:02 ABG HCO3 19 mEq/L (21-27) L 08/23/18 05:02 ABG Base Excess -6 mEq/L (-2 to 3) L 08/23/18 05:02 VBG pCO2 25 mmHg (41-51) L 08/22/18 14:57 VBG pO2 212 mmHg (25-50) H 08/22/18 14:57 VBG HCO3 15 mEq/L (21-27) L 08/22/18 14:57 Sodium 133 mEq/L (136-145) L 08/23/18 04:19 Potassium 5.3 mEq/L (3.5-5.1) H 08/23/18 04:19 Chloride 108 mEq/L (98-107) H 08/23/18 04:19 Carbon Dioxide 20 mEq/L (23-29) L 08/23/18 04:19 BUN 30 mg/dL (6-20) H 08/23/18 04:19 Est GFR ( Amer) 59 (> 60) L 08/23/18 04:19 Est GFR (Non-Af Amer) 48 (> 60) L 08/23/18 04:19 Glucose 169 mg/dL (70-105) H 08/23/18 04:19 Calcium 7.0 mg/dL (8.6-10.3) L 08/23/18 04:19 Venous Ioniz Calcium 1.02 mmol/L (1.15-1.35) L 08/23/18 06:31 Magnesium 1.3 mg/dL (1.6-2.6) L 08/23/18 04:19 Troponin I 0.05 ng/mL (< 0.04) H* 08/22/18 20:20 B-Natriuretic Peptide 184 pg/mL (Less than 100) H 08/22/18 14:38 Serum Total Protein 6.3 g/dL (6.4-8.9) L 08/22/18 14:38 Beta-Hydroxybutyric Acd 0.41 mmol/L (0.02-0.27) H 08/22/18 14:38 Urine Glucose (UA) >=1000 mg/dL (Normal) H 08/22/18 15:06 Urine Ketones 15 mg/dL (Negative) H 08/22/18 15:06 - Microbiology Findings Microbiology Findings: Microbiology, Last 48 Hours 08/22/18 14:32 Blood Culture - Preliminary Peripheral Venipuncture Culture is incubating and being continuously monitored for growth. Final report to follow. 08/22/18 14:39 Blood Culture - Preliminary Peripheral Venipuncture Culture is incubating and being continuously monito red for growth. Final report to follow. - Clinical Findings Intake & Output: Intake & Output 08/22/18 08/23/18 08/23/18 23:59 07:59 15:59 Intake Total 1580.2 / 1580.2 1694.8 / 1694.8 Output Total 225 / 225 375 / 375 100 / 100 Balance 1355.2 / 1355.2 1319.8 / 1319.8 -100 / -100 Weight 87.2 kg Consult Discharge Plan - Plan Referrals: NONE,PCP [Primary Care Provider] - - Attending Attestation I examined this patient and my medical decision-making was reviewed with the Resident Physician. I agree with the documented findings, disposition and treatment plan as described except to the extent set forth below. We independently had [id number] contact with the patient I spent 32min of Critical Care time with this patient. It involved decision making of high complexity to assess, manipulate, and support vital organ system failure and/or to prevent further life threatening deterioration of the patient's condition. The time involved in the performance of separately reportable procedures was not counted toward critical care time. Patient seen and examined at bedside Labs, radiology, chart personally reviewed. Management was reviewed during multidisciplinary critical care rounds. EDGER FEEDER: Patient is awake and alert presented with encephalopathy which was likely metabolic in nature but this is resolving no focal deficit Pulm: Currently on the vent postoperatively she has acceptable gas exchange no respiratory distress are clear acute respiratory process plan for spontaneous breathing trial today Cards: Patient presented with a combination of hypovolemic and distributive shock secondary to sepsis. This is improving she is being weaned off vasopressor support she has been given adequate volume resuscitation remains mildly tachycardic but had been receiving beta blake therapy prior to this and I suspect some of this is rebound can likely reintroduce her beta blake after she is off vasopressor for 6-12 hours lactate has normalized GI: Patient presented with the acute surgical abdomen with peritonitis secondary to bowel perforation after laparoscopic cholecystectomy postop day 1 status post enterotomy repair appreciate sharing general surgery managing the patient from this standpoint. U GI prophylaxis Nutrition: Nothing by mouth for now Renal: Acute kidney injury secondary to prerenal azotemia which is resolved she has acceptable urine output now. Mild hyperkalemia continue to trend potassium a need to medical management for this. UOP Monitored, Cont to Trend sCr and monitor Electrolytes. ID: Treating for acute peritonitis secondary to bowel perforation/intra- abdominal sepsis on Zosyn cultures pending Heme/Onc: Slightly drop in hemoglobin in the last 24 hours is likely postoperative bleeding and dilutional effect continue to trend hemoglobin twice daily trend platelets Endo: She presented with diabetic ketoacidosis secondary to infection and stress now she is off insulin infusion for DKA and can be transitioned to sliding scale insulin based upon Accu-Cheks which we will check every 4 hours while nothing by mouth Integ/MSK: Skin Care per routine ICU Nursing Protocol to prevent ulcers. Lines: All lines examined without evidence of infection : Dispo: Remain in ICU today for critical illness CODE: Full <Haylie Gasca M - Last Filed: 08/23/18 12:20> Date of Encounter: 08/23/18 Time of Encounter: 07:38 Assessment and Plan (1) DKA (diabetic ketoacidoses) Current Visit: Yes Status: Acute Qualifiers: Diabetes mellitus type: type 2 Diabetes mellitus complication detail: without coma Qualified Code(s): E11.10 - Type 2 diabetes mellitus with ketoacidosis without coma (2) Septic shock Current Visit: Yes Status: Acute (3) ROBERT (acute kidney injury) Current Visit: Yes Status: Acute (4) Elevated troponin Current Visit: Yes Status: Acute (5) Hyperglycemia Current Visit: Yes Status: Acute (6) DVT prophylaxis Current Visit: Yes Status: Acute Past Med Surg Social Fam HX - Past Medical History Medical history: cardiomyopathy, coronary artery disease, CVA, diabetes, hyperlipidemia, hypertension, seizures Additional medical history: legally blind,. RUSSELL. non obstructing calculus of gallbladder. anemia Psychiatric history: anxiety, depression - Past Surgical History Surgical History: angioplasty/stent, breast surgery, , coronary bypass (CABG) Additional surgical history: Breast reduction. AVR w 23mm edwrds pericardial- 10/23/17 - Social History Smoking Status: Never smoker Smokeless Tobacco Status: No Alcohol use: none Drug use: none All Systems: The remainder of the systems were reviewed and are negative Physical Examination Vital Signs: Vital Signs, Last 4 Hours Temp Pulse Resp BP Pulse Ox 08/23/18 06:08 16 109/66 99 08/23/18 06:00 116 18 109/66 99 08/23/18 05:00 114 16 107/60 99 08/23/18 04:43 98.7 F 08/23/18 04:30 110 19 105/59 99 08/23/18 03:45 15 82/52 97 Ventilator Settings Ventilator Settings: Ventilator Settings, Last 8 Hours Ventilator Tidal Volume 450 Setting Ventilator Tidal Volume 450 Setting Ventilator Tidal Volume 450 Setting Ventilator Tidal Volume 450 Setting Ventilator Tidal Volume 450 Setting Ventilator Tidal Volume 450 Setting Ventilator Tidal Volume 450 Setting Ventilator Tidal Volume 450 Setting Ventilator Tidal Volume 450 Setting Ventilator Tidal Volume 450 Setting Ventilator Tidal Volume 450 Setting Ventilator Tidal Volume 450 Setting Ventilator Respiratory Rate 14 Setting Ventilator Respiratory Rate 14 Setting Ventilator Respiratory Rate 14 Setting Ventilator Respiratory Rate 14 Setting Ventilator Respiratory Rate 14 Setting Ventilator Respiratory Rate 14 Setting Ventilator Respiratory Rate 14 Setting Ventilator Respiratory Rate 14 Setting Ventilator Respiratory Rate 14 Setting Ventilator Respiratory Rate 14 Setting Ventilator Respiratory Rate 14 Setting Ventilator Respiratory Rate 14 Setting Actual Respiratory Rate 16 Actual Respiratory Rate 18 Actual Respiratory Rate 15 Actual Respiratory Rate 19 Actual Respiratory Rate 16 Actual Respiratory Rate 16 Actual Respiratory Rate 19 Actual Respiratory Rate 16 Actual Respiratory Rate 16 Actual Respiratory Rate 16 Actual Respiratory Rate 16 Positive End Expiratory 5 Pressure Positive End Expiratory 5 Pressure Positive End Expiratory 5 Pressure Positive End Expiratory 5 Pressure Positive End Expiratory 5 Pressure Positive End Expiratory 5 Pressure Positive End Expiratory 5 Pressure Positive End Expiratory 5 Pressure Positive End Expiratory 5 Pressure Positive End Expiratory 5 Pressure Positive End Expiratory 5 Pressure Positive End Expiratory 5 Pressure Peak Inspiratory Airway 21 Pressure Peak Inspiratory Airway 21 Pressure Peak Inspiratory Airway 21 Pressure Peak Inspiratory Airway 22 Pressure Peak Inspiratory Airway 22 Pressure Peak Inspiratory Airway 22 Pressure Peak Inspiratory Airway 22 Pressure Peak Inspiratory Airway 23 Pressure Peak Inspiratory Airway 23 Pressure Peak Inspiratory Airway 23 Pressure Peak Inspiratory Airway 22 Pressure Results - Laboratory Findings CBC and BMP: 08/23/18 04:19 08/23/18 04:19 ABG ABG pH 7.41 pH Units (7.32-7.45) 08/23/18 05:02 ABG pCO2 30 mmHg (35-45) L 08/23/18 05:02 ABG pO2 108 mmHg (85-104) H D 08/23/18 05:02 ABG O2 Saturation 98 % (95-98) 08/23/18 05:02 PT/INR, D-dimer PT 14.5 Seconds (9.4-12.1) H 08/22/18 14:38 Abnormal lab findings: Abnormal lab results WBC 3.6 K/mcL (4.3-11.1) L 08/23/18 04:19 Hgb 10.8 g/dL (11.5-15.4) L D 08/23/18 04:19 Hct 33.4 % (35.3-44.9) L 08/23/18 04:19 MCH 27.1 pg (28.0-33.3) L 08/23/18 04:19 Band Neutrophils % 14.0 % (0-4) H 08/23/18 04:19 Metamyelocytes % 4.0 % (0) H 08/23/18 04:19 Lymphocytes # 0.5 K/mcL (0.6-4.6) L 08/23/18 04:19 PT 14.5 Seconds (9.4-12.1) H 08/22/18 14:38 ABG pCO2 30 mmHg (35-45) L 08/23/18 05:02 ABG pO2 108 mmHg (85-104) H D 08/23/18 05:02 ABG HCO3 19 mEq/L (21-27) L 08/23/18 05:02 ABG Base Excess -6 mEq/L (-2 to 3) L 08/23/18 05:02 VBG pCO2 25 mmHg (41-51) L 08/22/18 14:57 VBG pO2 212 mmHg (25-50) H 08/22/18 14:57 VBG HCO3 15 mEq/L (21-27) L 08/22/18 14:57 Sodium 133 mEq/L (136-145) L 08/23/18 04:19 Potassium 5.3 mEq/L (3.5-5.1) H 08/23/18 04:19 Chloride 108 mEq/L (98-107) H 08/23/18 04:19 Carbon Dioxide 20 mEq/L (23-29) L 08/23/18 04:19 BUN 30 mg/dL (6-20) H 08/23/18 04:19 Est GFR ( Amer) 59 (> 60) L 08/23/18 04:19 Est GFR (Non-Af Amer) 48 (> 60) L 08/23/18 04:19 Glucose 169 mg/dL (70-105) H 08/23/18 04:19 Calcium 7.0 mg/dL (8.6-10.3) L 08/23/18 04:19 Venous Ioniz Calcium 1.02 mmol/L (1.15-1.35) L 08/23/18 06:31 Magnesium 1.3 mg/dL (1.6-2.6) L 08/23/18 04:19 Troponin I 0.05 ng/mL (< 0.04) H* 08/22/18 20:20 B-Natriuretic Peptide 184 pg/mL (Less than 100) H 08/22/18 14:38 Serum Total Protein 6.3 g/dL (6.4-8.9) L 08/22/18 14:38 Beta-Hydroxybutyric Acd 0.41 mmol/L (0.02-0.27) H 08/22/18 14:38 Urine Glucose (UA) >=1000 mg/dL (Normal) H 08/22/18 15:06 Urine Ketones 15 mg/dL (Negative) H 08/22/18 15:06 - Microbiology Findings Microbiology Findings: Microbiology, Last 48 Hours 08/22/18 14:32 Blood Culture - Preliminary Peripheral Venipuncture Culture is incubating and being continuously monitored for growth. Final report to follow. 08/22/18 14:39 Blood Culture - Preliminary Peripheral Venipuncture Culture is incubating and being continuously monitored for growth. Final report to follow. - Clinical Findings Intake & Output: Intake & Output 08/22/18 08/22/18 08/23/18 15:59 23:59 07:59 Intake Total 2119 / 2119 1580.2 / 1580.2 1694.8 / 1694.8 Output Total 225 / 225 375 / 375 Balance 2119 / 2119 1355.2 / 1355.2 1319.8 / 1319.8 Weight 81.647 kg 87.2 kg
--- NOTE | 2018-08-23 07:57 | Internal Med Progress Note ---
Hospitalist Progress Note - Encounter Date of Encounter: 08/23/18 Time of Encounter: 11:00 - Subjective Interval History: Patient is postop day 2 laparoscopic cholecystectomy for cholelithiasis with concerns for small bowel injury and now postop day 1 for exploratory laparotomy with repair of small bowel enterotomy Patient's DKA has resolved but still requiring levophed this morning with IV fluids - Exam Vitals: Temp Pulse Resp BP Pulse Ox 98.7 F 116 16 109/66 99 08/23/18 04:43 08/23/18 06:00 08/23/18 06:08 08/23/18 06:08 08/23/18 06:08 Exam: Gen.: Nonacute distress, alert and oriented 3 ENT: Mucosal membranes moist Respiratory: Lungs are clear to auscultation bilaterally without any wheezing rhonchi or rales Cardiovascular: Normal S1 and S2 regular rate rhythm no murmurs rubs or gallops Abdomen: Soft, nontender and nondistended with positive bowel sounds Extremities: No lower extremity edema Skin: Normal color - Assessment and Plan (1) Septic shock Current Visit: Yes Status: Acute Assessment and Plan: Suspect due to peritonitis secondary to bowel perforation Patient's Levophed has been weaned and currently on maintenance IV fluids Will continue IV Zosyn (2) Status post exploratory laparotomy Current Visit: Yes Status: Acute Assessment and Plan: POD#2 with concerns for small bowel perforation POD#1 from ex-lap with small bowel repair Gen. surgery following an appreciate recommendations (3) ROBERT (acute kidney injury) Current Visit: Yes Status: Acute Assessment and Plan: Resolved; suspect due to prerenal secondary to hypovolemia (4) Elevated troponin Current Visit: Yes Status: Acute Assessment and Plan: Suspect secondary to demand ischemia as troponins has now trended downward. (5) DKA (diabetic ketoacidoses) Current Visit: Yes Status: Acute Assessment and Plan: Resolved; coverage with sliding scale insulin (6) DVT prophylaxis Current Visit: Yes Status: Acute Assessment and Plan: EPCDs - Time Spent with Patient Total time spent is greater than 50% in coordination of care (as documented) at patient's floor/unit and/or counseling patient: Internal Medicine: Result - Labs CBC & Chem 7: 08/23/18 04:19 08/23/18 15:31 Labs: Short CBC 08/22/18 08/23/18 Range/Units 14:38 04:19 WBC 5.1 3.6 L (4.3-11.1) K/mcL Hgb 14.9 D 10.8 L D (11.5-15.4) g/dL Hct 46.8 H 33.4 L (35.3-44.9) % Plt Count 328 190 (140-400) K/mcL Neutrophils # 3.8 2.7 (1.6-8.9) K/mcL BMP 08/22/18 08/22/18 08/23/18 14:38 20:20 00:07 Sodium 128 L 131 L 133 L Potassium 5.4 H 4.3 4.6 Chloride 94 L 106 109 H Carbon Dioxide 16 L 17 L 20 L BUN 31 H 29 H 30 H Creatinine 1.89 H 1.37 H 1.21 H Glucose 548 H* 251 H 109 H Calcium 8.5 L 7.4 L 7.0 L 08/23/18 04:19 Sodium 133 L Potassium 5.3 H Chloride 108 H Carbon Dioxide 20 L BUN 30 H Creatinine 1.17 Glucose 169 H Calcium 7.0 L Cardiac Enzymes 18 08/22/18 Range/Units 14:38 20:20 Troponin I 0.04 H* 0.05 H* (< 0.04) ng/mL Liver Function 08/22/18 Range/Units 14:38 Total Bilirubin 0.7 (0.3-1.0) mg/dL Direct Bilirubin 0.1 (0.0-0.2) mg/dL AST 32 (13-39) Units/L ALT 24 (7-52) Units/L Alkaline Phosphatase 47 (34-104) Units/L Albumin 3.7 (3.5-5.7) g/dL Urine 08/22/18 Range/Units 15:06 Urine Color Yellow (Yellow) Urine Clarity Clear (Clear) Urine pH 6.0 (5.0-8.0) pH Units Ur Specific [place] 1.024 (1.010-1.025) Urine Protein Negative (Neg-Trace) mg/dL Urine Glucose (UA) >=1000 H (Normal) mg/dL - ABG Interpretation ABG results: ABG ABG pH 7.41 pH Units (7.32-7.45) 08/23/18 05:02 ABG pCO2 30 mmHg (35-45) L 08/23/18 05:02 ABG pO2 108 mmHg (85-104) H D 08/23/18 05:02 ABG O2 Saturation 98 % (95-98) 08/23/18 05:02 PT/INR, D-dimer PT 14.5 Seconds (9.4-12.1) H 08/22/18 14:38 - Impressions Impressions Chest X-Ray 08/22/18 14:24 IMPRESSION: No acute cardiopulmonary disease. D/ / Manohar Harmon MD / Manohar Harmon MD Interpreting Provider: Manohar Harmon MD Abdomen/Pelvis CT 08/22/18 15:47 IMPRESSION: 1. Large amount of free fluid in the abdomen and pelvis as detailed above with recent history of cholecystectomy. Tiny bubbles of free intra-abdominal air in the upper abdomen. The possibility of a bile leak is difficult to exclude given these findings. Surgical clips in the gallbladder fossa consistent with cholecystectomy. 2. Interloop fluid and mild nonspecific prominence of the wall of multiple small bowel loops in the lower abdomen which could be secondary to the free fluid in the abdomen. Other differential considerations include nonspecific enteritis. Evaluation of lactate level recommended. 3. Mild scattered colonic diverticulosis. Nonvisualization of the appendix. 4. Small hiatal hernia. 5. Coronary artery disease. Evidence of prior valvular surgery. 6. Stranding and gas in the subcutaneous fat of the anterior abdominal wall consistent with recent laparoscopic cholecystectomy. 7. Grade 1 spondylolisthesis of L5 on S1. Critical results were called by Dr. Yves Morgan MD to Philippe Fernandez on 08/22/2018 at 16:40. D/ / 08/22/2018 16:48:30 [facility] Inter[facility] Provider: Yves Morgan MD Chest X-Ray 08/22/18 19:33 IMPRESSION: Mild bibasilar pulmonary opacities either due to atelectasis or pneumonia. Appropriate positioning of the endotracheal tube, nasogastric tube, and left subclavian central venous catheter. No pneumothorax. Tip of the catheter lying in the right atrium. D/ / Sergio Cervantes MD / Sergio Cervantes MD Interpreting Provider: Sergio Cervantes MD Consult Discharge Plan - Plan Referrals: NONE,PCP [Primary Care Provider] - (5) DKA (diabetic ketoacidoses) Qualifiers: Diabetes mellitus type: type 2 Diabetes mellitus complication detail: without coma Qualified Code(s): E11.10 - Type 2 diabetes mellitus with ketoacidosis without coma
[2018-08-23] MEDS: Pantoprazole 40 MG VIAL IVP SCH (08:28)
[2018-08-23] MEDS: Chlorhexidine Rinse 15 ML MOUTHWASH MM SCH ×2 (08:31→19:53)
--- NOTE | 2018-08-23 11:50 | General Surgery Progress Note ---
<Makenzie Harrington - Last Filed: 08/23/18 11:45> Date of Encounter: 08/23/18 Time of Encounter: 11:46 - Assessment and Plan (1) Status post exploratory laparotomy Current Visit: Yes Status: Acute Date of procedure: 08/22/18 Pre-op diagnosis: Acute abdomen Post-op diagnosis: other (Small bowel enterotomy (iatrogenic)) Procedure: Exploratory laparotomy and repair of small bowel enterotomy Anesthesia: BERTIN Surgeon: Anand Almodovar POD #1 as above. she is extubated, states her abdominal discomfort is better today. Her NG is secured. She has notable return to w/p/d skin tone today. hgb and WBC are stable. Dressing is c/d/i. Leave in place today. Plan: continue supportive care and discomfort management EP CDs incentive spirometry G.I. and DVT prophylaxis continue NG to low intermittent wall suction NPO (2) S/P laparoscopic cholecystectomy Current Visit: Yes Status: Acute 08/21/2018 complicated lap harry with concern for small bowel injury d/t visualization of the mucosa. Per operative note, there was no bowel injury identified and no evidence of spilled contents. The abdomen was irrigated with copious amounts of antibiotic solution. Subjective Patient reports: no new complaints, still having pain, pain is less, voiding w/o difficulty (per bhat), no flatus, no bowel movement, afebrile Narrative: Denies n/v. Reports abdomen "feels better." Objective Vital Signs - Last 8 Hours Temp Pulse Resp BP Pulse Ox 08/23/18 11:02 119 16 106/61 100 08/23/18 09:00 120 16 107/67 99 08/23/18 08:32 20 08/23/18 08:30 99.3 F 120 25 116/67 99 08/23/18 08:16 99.3 F 08/23/18 07:00 125 25 132/79 99 08/23/18 06:08 16 109/66 99 08/23/18 06:00 116 18 109/66 99 08/23/18 05:00 114 16 107/60 99 08/23/18 04:43 98.7 F 08/23/18 04:30 110 19 105/59 99 Intake and Output 08/22/18 08/23/18 08/23/18 23:59 07:59 15:59 Intake Total 1580.2 / 1580.2 1694.8 / 1694.8 Output Total 225 / 225 375 / 375 100 / 100 Balance 1355.2 / 1355.2 1319.8 / 1319.8 -100 / -100 Intake: IV Fluids 1580.2 / 1580.2 1694.8 / 1694.8 0.9 % Sodium Chloride 1,000 ML 1000 / 1000 @ 100 mls/hr IVC .Q10H [facility] Rx#: [id number] 0.9 % Sodium Chloride 500 ML @ 500 / 500 999 mls/hr IVC .Q31M ONE Rx#: [id number] KCl 20 mEq in 0.9% Sodium 1000 / 1000 492 / 492 Chloride 20 meq In 1,000 ml @ 500 mls/hr IVC .Q2H [facility] Rx#: [id number] FentaNYL (PF) 1,000 MCG In 0.9 49.6 / 49.6 % Sodium Chloride 80 ML @ 25 MCG/HR 2.5 mls/hr IVC CONT [facility] Rx#:[id number] HumuLIN R 100 UNIT In 0.9 % 80.2 / 80.2 21.1 / 21.1 Sodium Chloride 100 ML @ 0.1 UNIT/KG/HR 8.25 mls/hr IVC CONT [facility] Rx#:[id number] Levophed 4 MG In Dextrose 5% 32.1 / 32.1 250 ML @ 1 MCG/MIN 3.81 mls/hr IVC CONT [facility] Rx#:[id number] Zosyn 3.375 GM In 0.9 % Sodium 100 / 100 Chloride (Mini-Bag +) 100 ML @ 25 mls/hr IVPB Q8HR [facility] Rx#: [id number] Oral 0 / 0 Output: Urine 0 / 0 Estimated Blood Loss 25 / 25 Urine Amount (Catheter) 200 / 200 Catheter 225 / 225 100 / 100 Gastric Drainage 150 / 150 Other: Weight 87.2 kg Blood Glucose* 146 157 131 Patient Weight 08/23/18 23:59 Weight 87.2 kg - General physical appearance no distress, moderate pain - Eyes normal ocular movement - ENT normal nares (NG secured left nares), normal mucosa, atraumatic, normocephalic - Neck Neck exam: trachea midline - Respiratory normal expansion, normal respiratory effort, clear to auscultation - Cardiovascular Cardiovascular exam: Present: tachycardia - Labs 08/23/18 04:19 08/23/18 04:19 Diabetes panel 08/22/18 08/22/18 08/23/18 Range/Units 14:38 20:20 00:07 Sodium 128 L 131 L 133 L (136-145) mEq/L Potassium 5.4 H 4.3 4.6 (3.5-5.1) mEq/L Chloride 94 L 106 109 H (98-107) mEq/L Carbon Dioxide 16 L 17 L 20 L (23-29) mEq/L BUN 31 H 29 H 30 H (6-20) mg/dL Creatinine 1.89 H 1.37 H 1.21 H (0.60-1.20) mg/dL Glucose 548 H* 251 H 109 H (70-105) mg/dL Calcium 8.5 L 7.4 L 7.0 L (8.6-10.3) mg/dL AST 32 (13-39) Units/L ALT 24 (7-52) Units/L Alkaline Phosphatase 47 (34-104) Units/L Albumin 3.7 (3.5-5.7) g/dL 08/23/18 Range/Units 04:19 Sodium 133 L (136-145) mEq/L Potassium 5.3 H (3.5-5.1) mEq/L Chloride 108 H (98-107) mEq/L Carbon Dioxide 20 L (23-29) mEq/L BUN 30 H (6-20) mg/dL Creatinine 1.17 (0.60-1.20) mg/dL Glucose 169 H (70-105) mg/dL Calcium 7.0 L (8.6-10.3) mg/dL AST (13-39) Units/L ALT (7-52) Units/L Alkaline Phosphatase (34-104) Units/L Albumin (3.5-5.7) g/dL Calcium panel 08/22/18 08/22/18 08/23/18 Range/Units 14:38 20:20 00:07 Calcium 8.5 L 7.4 L 7.0 L (8.6-10.3) mg/dL Phosphorus 4.9 H (2.7-4.5) mg/dL Albumin 3.7 (3.5-5.7) g/dL 08/23/18 Range/Units 04:19 Calcium 7.0 L (8.6-10.3) mg/dL Phosphorus 3.1 (2.7-4.5) mg/dL Albumin (3.5-5.7) g/dL Pituitary panel 08/22/18 08/22/18 08/23/18 Range/Units 14:38 20:20 00:07 Sodium 128 L 131 L 133 L (136-145) mEq/L Potassium 5.4 H 4.3 4.6 (3.5-5.1) mEq/L Chloride 94 L 106 109 H (98-107) mEq/L Carbon Dioxide 16 L 17 L 20 L (23-29) mEq/L BUN 31 H 29 H 30 H (6-20) mg/dL Creatinine 1.89 H 1.37 H 1.21 H (0.60-1.20) mg/dL Glucose 548 H* 251 H 109 H (70-105) mg/dL Calcium 8.5 L 7.4 L 7.0 L (8.6-10.3) mg/dL 08/23/18 Range/Units 04:19 Sodium 133 L (136-145) mEq/L Potassium 5.3 H (3.5-5.1) mEq/L Chloride 108 H (98-107) mEq/L Carbon Dioxide 20 L (23-29) mEq/L BUN 30 H (6-20) mg/dL Creatinine 1.17 (0.60-1.20) mg/dL Glucose 169 H (70-105) mg/dL Calcium 7.0 L (8.6-10.3) mg/dL Adrenal panel 08/22/18 08/22/18 08/23/18 Range/Units 14:38 20:20 00:07 Sodium 128 L 131 L 133 L (136-145) mEq/L Potassium 5.4 H 4.3 4.6 (3.5-5.1) mEq/L Chloride 94 L 106 109 H (98-107) mEq/L Carbon Dioxide 16 L 17 L 20 L (23-29) mEq/L BUN 31 H 29 H 30 H (6-20) mg/dL Creatinine 1.89 H 1.37 H 1.21 H (0.60-1.20) mg/dL Glucose 548 H* 251 H 109 H (70-105) mg/dL Calcium 8.5 L 7.4 L 7.0 L (8.6-10.3) mg/dL Total Bilirubin 0.7 (0.3-1.0) mg/dL AST 32 (13-39) Units/L ALT 24 (7-52) Units/L Alkaline Phosphatase 47 (34-104) Units/L Albumin 3.7 (3.5-5.7) g/dL 08/23/18 Range/Units 04:19 Sodium 133 L (136-145) mEq/L Potassium 5.3 H (3.5-5.1) mEq/L Chloride 108 H (98-107) mEq/L Carbon Dioxide 20 L (23-29) mEq/L BUN 30 H (6-20) mg/dL Creatinine 1.17 (0.60-1.20) mg/dL Glucose 169 H (70-105) mg/dL Calcium 7.0 L (8.6-10.3) mg/dL Total Bilirubin (0.3-1.0) mg/dL AST (13-39) Units/L ALT (7-52) Units/L Alkaline Phosphatase (34-104) Units/L Albumin (3.5-5.7) g/dL Consult Discharge Plan - Plan Referrals: NONE,PCP [Primary Care Provider] - <Anand Almodovar - Last Filed: 08/23/18 13:12> Date of Encounter: 08/23/18 Objective Vital Signs - Last 8 Hours Temp Pulse Resp BP Pulse Ox 08/23/18 12:00 123 16 116/60 100 08/23/18 11:41 122 08/23/18 11:02 119 16 106/61 100 08/23/18 09:00 120 16 107/67 99 08/23/18 08:32 20 08/23/18 08:30 99.3 F 120 25 116/67 99 08/23/18 08:16 99.3 F 08/23/18 07:00 125 25 132/79 99 08/23/18 06:08 16 109/66 99 08/23/18 06:00 116 18 109/66 99 Intake and Output 08/22/18 08/23/18 08/23/18 23:59 07:59 15:59 Intake Total 1580.2 / 1580.2 1694.8 / 1694.8 100 / 100 Output Total 225 / 225 375 / 375 475 / 475 Balance 1355.2 / 1355.2 1319.8 / 1319.8 -375 / -375 Intake: IV Fluids 1580.2 / 1580.2 1694.8 / 1694.8 100 / 100 0.9 % Sodium Chloride 1,000 ML 1000 / 1000 @ 100 mls/hr IVC .Q10H [facility] Rx#: [id number] 0.9 % Sodium Chloride 500 ML @ 500 / 500 999 mls/hr IVC .Q31M [facility] Rx#: [id number] KCl 20 mEq in 0.9% Sodium 1000 / 1000 492 / 492 Chloride 20 meq In 1,000 ml @ 500 mls/hr IVC .Q2H [facility] Rx#: [id number] FentaNYL (PF) 1,000 MCG In 0.9 49.6 / 49.6 % Sodium Chloride 80 ML @ 25 MCG/HR 2.5 mls/hr IVC CONT [facility] Rx#:[id number] HumuLIN R 100 UNIT In 0.9 % 80.2 / 80.2 21.1 / 21.1 Sodium Chloride 100 ML @ 0.1 UNIT/KG/HR 8.25 mls/hr IVC CONT [facility] Rx#:[id number] Levophed 4 MG In Dextrose 5% 32.1 / 32.1 250 ML @ 1 MCG/MIN 3.81 mls/hr IVC CONT [facility] Rx#:[id number] Zosyn 3.375 GM In 0.9 % Sodium 100 / 100 100 / 100 Chloride (Mini-Bag +) 100 ML @ 25 mls/hr IVPB Q8HR [facility] Rx#: [id number] Oral 0 / 0 0 / 0 Free Water 0 / 0 Output: Urine 0 / 0 Estimated Blood Loss 25 / 25 Urine Amount (Catheter) 200 / 200 Catheter 225 / 225 375 / 375 Gastric Drainage 150 / 150 100 / 100 Other: Weight 87.2 kg Blood Glucose* 146 157 117 Patient Weight 08/23/18 23:59 Weight 87.2 kg - Labs 08/23/18 04:19 08/23/18 04:19 Diabetes panel 08/22/18 08/22/18 08/23/18 Range/Units 14:38 20:20 00:07 Sodium 128 L 131 L 133 L (136-145) mEq/L Potassium 5.4 H 4.3 4.6 (3.5-5.1) mEq/L Chloride 94 L 106 109 H (98-107) mEq/L Carbon Dioxide 16 L 17 L 20 L (23-29) mEq/L BUN 31 H 29 H 30 H (6-20) mg/dL Creatinine 1.89 H 1.37 H 1.21 H (0.60-1.20) mg/dL Glucose 548 H* 251 H 109 H (70-105) mg/dL Calcium 8.5 L 7.4 L 7.0 L (8.6-10.3) mg/dL AST 32 (13-39) Units/L ALT 24 (7-52) Units/L Alkaline Phosphatase 47 (34-104) Units/L Albumin 3.7 (3.5-5.7) g/dL 08/23/18 Range/Units 04:19 Sodium 133 L (136-145) mEq/L Potassium 5.3 H (3.5-5.1) mEq/L Chloride 108 H (98-107) mEq/L Carbon Dioxide 20 L (23-29) mEq/L BUN 30 H (6-20) mg/dL Creatinine 1.17 (0.60-1.20) mg/dL Glucose 169 H (70-105) mg/dL Calcium 7.0 L (8.6-10.3) mg/dL AST (13-39) Units/L ALT (7-52) Units/L Alkaline Phosphatase (34-104) Units/L Albumin (3.5-5.7) g/dL Calcium panel 08/22/18 08/22/18 08/23/18 Range/Units 14:38 20:20 00:07 Calcium 8.5 L 7.4 L 7.0 L (8.6-10.3) mg/dL Phosphorus 4.9 H (2.7-4.5) mg/dL Albumin 3.7 (3.5-5.7) g/dL 08/23/18 Range/Units 04:19 Calcium 7.0 L (8.6-10.3) mg/dL Phosphorus 3.1 (2.7-4.5) mg/dL Albumin (3.5-5.7) g/dL Pituitary panel 12/07/18 12/07/18 12/08/18 Range/Units 14:38 20:20 00:07 Sodium 128 L 131 L 133 L (136-145) mEq/L Potassium 5.4 H 4.3 4.6 (3.5-5.1) mEq/L Chloride 94 L 106 109 H (98-107) mEq/L Carbon Dioxide 16 L 17 L 20 L (23-29) mEq/L BUN 31 H 29 H 30 H (6-20) mg/dL Creatinine 1.89 H 1.37 H 1.21 H (0.60-1.20) mg/dL Glucose 548 H* 251 H 109 H (70-105) mg/dL Calcium 8.5 L 7.4 L 7.0 L (8.6-10.3) mg/dL 08/23/18 Range/Units 04:19 Sodium 133 L (136-145) mEq/L Potassium 5.3 H (3.5-5.1) mEq/L Chloride 108 H (98-107) mEq/L Carbon Dioxide 20 L (23-29) mEq/L BUN 30 H (6-20) mg/dL Creatinine 1.17 (0.60-1.20) mg/dL Glucose 169 H (70-105) mg/dL Calcium 7.0 L (8.6-10.3) mg/dL Adrenal panel 08/22/1818 08/23/18 Range/Units 14:38 20:20 00:07 Sodium 128 L 131 L 133 L (136-145) mEq/L Potassium 5.4 H 4.3 4.6 (3.5-5.1) mEq/L Chloride 94 L 106 109 H (98-107) mEq/L Carbon Dioxide 16 L 17 L 20 L (23-29) mEq/L BUN 31 H 29 H 30 H (6-20) mg/dL Creatinine 1.89 H 1.37 H 1.21 H (0.60-1.20) mg/dL Glucose 548 H* 251 H 109 H (70-105) mg/dL Calcium 8.5 L 7.4 L 7.0 L (8.6-10.3) mg/dL Total Bilirubin 0.7 (0.3-1.0) mg/dL AST 32 (13-39) Units/L ALT 24 (7-52) Units/L Alkaline Phosphatase 47 (34-104) Units/L Albumin 3.7 (3.5-5.7) g/dL 08/23/18 Range/Units 04:19 Sodium 133 L (136-145) mEq/L Potassium 5.3 H (3.5-5.1) mEq/L Chloride 108 H (98-107) mEq/L Carbon Dioxide 20 L (23-29) mEq/L BUN 30 H (6-20) mg/dL Creatinine 1.17 (0.60-1.20) mg/dL Glucose 169 H (70-105) mg/dL Calcium 7.0 L (8.6-10.3) mg/dL Total Bilirubin (0.3-1.0) mg/dL AST (13-39) Units/L ALT (7-52) Units/L Alkaline Phosphatase (34-104) Units/L Albumin (3.5-5.7) g/dL - Attending Attestation I have personally performed a face to face evaluation on this patient. I have reviewed and agree with the care plan. History and Exam by me shows: The patient is seen and evaluated on morning rounds. She is now off pressor agents has an excellent urinary output. She appears to be well-hydrated. She should come off the ventilator later this morning. I am very pleased with her overall clinical course. Anand Almodovar MD FACS
[2018-08-23 16:07] LABS: BUN/Creatinine Ratio 26 (6-26); Blood Urea Nitrogen 24 mg/dL (6-20); Calcium 7.3 mg/dL (8.6-10.3); Carbon Dioxide 20 mEq/L (23-29); Chloride 110 mEq/L (98-107); Glucose 134 mg/dL (70-105); Magnesium 1.7 mg/dL (1.6-2.6); Osmolality,Calculated 284 (280-300); Phosphorous 2.7 mg/dL (2.7-4.5); Potassium 4.7 mEq/L (3.5-5.1); Sodium 134 mEq/L (136-145); eGFR For Non-African Americans > 60 (> 60)
[2018-08-23] MEDS: FentaNYL (PF) 1,000 MCG in 0.9 % Sodium Chloride 80 ML IVC SCH (19:48)
[2018-08-23] MEDS: Norepinephrine 4 MG in D5% in Water 250 ML IVC SCH (19:52)
[2018-08-24] MEDS: 0.9 % Sodium Chloride 1,000 ML IVC SCH (03:20)
[2018-08-24 04:13] LABS: Hemoglobin 9.5 g/dL (11.5-15.4); Lymphocytes # 0.8 K/mcL (0.6-4.6); Mean Corpuscular HGB Conc 31.7 g/dL (31.6-35.5); Mean Corpuscular Hemoglobin 26.7 pg (28.0-33.3); Mean Corpuscular Volume 84.3 fL (83.0-100.0); Mean Platelet Volume 10.1 fL (9.4-12.4); Monocytes # 0.4 K/mcL (0.0-1.3); Platelet Count 186 K/mcL (140-400); Red Blood Count 3.56 M/mcL (3.82-4.97); Red Cell Distribution Width 14.1 % (11.5-14.5)
[2018-08-24] MEDS: Artificial Tears SOLN 15 ML BOTTLE BOTH EYES SCH (04:18)
[2018-08-24 04:25] LABS: BUN/Creatinine Ratio 24 (6-26); Blood Urea Nitrogen 17 mg/dL (6-20); Calcium 7.4 mg/dL (8.6-10.3); Carbon Dioxide 19 mEq/L (23-29); Chloride 112 mEq/L (98-107); Glucose 116 mg/dL (70-105); Magnesium 1.7 mg/dL (1.6-2.6); Osmolality,Calculated 283 (280-300); Phosphorous 2.3 mg/dL (2.7-4.5); Potassium 4.4 mEq/L (3.5-5.1); Sodium 135 mEq/L (136-145); eGFR For Non-African Americans > 60 (> 60)
[2018-08-24 05:13] LABS: Neutrophils # 3.2 K/mcL (1.6-8.9); Platelet Estimate Normal (Normal); Reactive Lymphocytes Present (Not Present)
--- NOTE | 2018-08-24 07:36 | Internal Med Progress Note ---
Hospitalist Progress Note - Encounter Date of Encounter: 08/24/18 Time of Encounter: 11:00 - Subjective Interval History: Patient is postop day 3 laparoscopic cholecystectomy for cholelithiasis with concerns for small bowel injury and now postop day 2 for exploratory laparotomy with repair of small bowel enterotomy Patient's DKA and acute renal failure has resolved - Exam Vitals: Temp Pulse Resp BP Pulse Ox 99.4 F 123 20 131/74 98 08/24/18 04:14 08/24/18 06:00 08/24/18 06:00 08/24/18 06:00 08/24/18 06:00 Exam: Gen.: Nonacute distress, alert and oriented 3 ENT: Mucosal membranes moist Respiratory: Lungs are clear to auscultation bilaterally without any wheezing rhonchi or rales Cardiovascular: Normal S1 and S2 regular rate rhythm no murmurs rubs or gallops Abdomen: Soft, nontender and nondistended with positive bowel sounds Extremities: No lower extremity edema Skin: Normal color - Assessment and Plan (1) Septic shock Current Visit: Yes Status: Acute Assessment and Plan: Suspect due to peritonitis secondary to bowel perforation Patient's Levophed has been weaned and currently on maintenance IV fluids Will continue day 3 of IV Zosyn (2) Status post exploratory laparotomy Current Visit: Yes Status: Acute Assessment and Plan: POD#3 laparoscopic cholecystectomy for cholelithiasis with concerns for small bowel injury POD#2 ex-lap with small bowel repair Gen. surgery following an appreciate recommendations (3) ROBERT (acute kidney injury) Current Visit: Yes Status: Resolved Assessment and Plan: Resolved; suspect due to prerenal secondary to hypovolemia Continue to monitor (4) Elevated troponin Current Visit: Yes Status: Resolved Assessment and Plan: Suspect secondary to demand ischemia as troponins have trended downward. (5) DKA (diabetic ketoacidoses) Current Visit: Yes Status: Resolved Assessment and Plan: Resolved; coverage with sliding scale insulin (6) Anemia Current Visit: Yes Status: Acute Assessment and Plan: Hemoglobin was 14.9 on admission and this morning is 9.5 Will continue to monitor DVT Prophylaxis: EPCDs - Time Spent with Patient Total time spent is greater than 50% in coordination of care (as documented) at patient's floor/unit and/or counseling patient: Internal Medicine: Result - Labs CBC & Chem 7: 08/24/18 03:48 08/24/18 03:48 Labs: Short CBC 08/24/18 Range/Units 03:48 WBC 4.4 (4.3-11.1) K/mcL Hgb 9.5 L (11.5-15.4) g/dL Hct 30.0 L (35.3-44.9) % Plt Count 186 (140-400) K/mcL Neutrophils # 3.2 (1.6-8.9) K/mcL BMP 08/23/18 08/24/18 15:31 03:48 Sodium 134 L 135 L Potassium 4.7 4.4 Chloride 110 H 112 H Carbon Dioxide 20 L 19 L BUN 24 H 17 Creatinine 0.93 0.71 Glucose 134 H 116 H Calcium 7.3 L 7.4 L Cardiac Enzymes 08/23/18 Range/Units 07:53 Troponin I 0.03 (< 0.04) ng/mL - ABG Interpretation ABG results: ABG ABG pH 7.41 pH Units (7.32-7.45) 08/23/18 05:02 ABG pCO2 30 mmHg (35-45) L 08/23/18 05:02 ABG pO2 108 mmHg (85-104) H D 08/23/18 05:02 ABG O2 Saturation 98 % (95-98) 08/23/18 05:02 PT/INR, D-dimer PT 14.5 Seconds (9.4-12.1) H 08/22/18 14:38 Consult Discharge Plan - Plan Referrals: NONE,PCP [Primary Care Provider] - (5) DKA (diabetic ketoacidoses) Qualifiers: Diabetes mellitus type: type 2 Diabetes mellitus complication detail: without coma Qualified Code(s): E11.10 - Type 2 diabetes mellitus with ketoacidosis without coma (6) Anemia Qualifiers: Anemia type: other cause Other causes of anemia: chronic disease, other Qualified Code(s): D63.8 - Anemia in other chronic diseases classified elsewhere
[2018-08-24] MEDS ORDERED: Ringers Solution, Lactated 1,000 ML IVC SCH (08:15)
[2018-08-24] MEDS: Piperacillin/Tazobactam 3.375 GM in 0.9 % Sodium Chloride Mini Bag 100 ML IVPB SCH ×2 (08:23→15:43)
[2018-08-24] MEDS: Pantoprazole 40 MG VIAL IVP SCH (08:23)
--- NOTE | 2018-08-24 08:26 | Pulmonology Progress Note ---
<Haylie Gasca - Last Filed: 08/24/18 09:49> Date of Encounter: 08/24/18 Time of Encounter: 08:26 Assessment and Plan (1) DKA (diabetic ketoacidoses) Current Visit: Yes Status: Resolved DKA with out coma gap closed yesterday - resolved and currently stable. A1C of 7.6 adiquate controlled at home thus suspect hyperglycemia induces by sepsis. - NPO diet per surgery - low dose ISS and accucheck q6 Transfer to any tele accepted by hospitalist Dr Wolfe. Critical care will sign off this evening per protocol. Qualifiers: Diabetes mellitus type: type 2 Diabetes mellitus complication detail: without coma Qualified Code(s): E11.10 - Type 2 diabetes mellitus with ketoacidosis without coma (2) Septic shock Current Visit: Yes Status: Acute Sepsis due to small bowel perforation and spillage; stable off pressors and ET removed yesterday POD 2 OR takeback for small bowel perf with Dr Almodovar POD3 lap harry for acute cholecystitis - diet per surgery - GI prophalaxis - pain management per surgery, discontinue fentynal drip - continue zosyn - blood cultures NGTD - maintenance IVF changed from NS to LR @ 75 today - up to chair tid (3) ROBERT (acute kidney injury) Current Visit: Yes Status: Resolved ROBERT resolved with Scr 0.71 from 1.17 now back near baseline - continue maintenance fluids while NPO as above (4) Elevated troponin Current Visit: Yes Status: Resolved Elevated troponins with out EKG changes in setting of sepsis trended 0.05, 0.04 and 0.03 - resolved (5) HTN (hypertension) Current Visit: Yes Status: Chronic Elevated BP and mild tachycardia - start jovan lopresser IV while NPO - hold home lisinopril - continue IVF as above Qualifiers: Hypertension type: essential hypertension Qualified Code(s): I10 - Essential (primary) hypertension (6) Anemia Current Visit: Yes Status: Acute Acute on chronic anemia HgB stable at 8.4 from 8.8. Acute etiology likely mixed blood loss from surgery and dilution as all cell lines down - monitor with daily CBcs Qualifiers: Anemia type: other cause Other causes of anemia: chronic disease, other Qualified Code(s): D63.8 - Anemia in other chronic diseases classified elsewhere (7) Status post exploratory laparotomy Current Visit: Yes Status: Acute see above (8) S/P laparoscopic cholecystectomy Current Visit: Yes Status: Acute see above (9) Diabetes Current Visit: Yes Status: Chronic see DKA above Qualifiers: Diabetes mellitus type: type 2 Diabetes mellitus alf insulin use: without vermin exterminator use Diabetes mellitus complication status: without complication Qualified Code(s): E11.9 - Type 2 diabetes mellitus without complications (10) DVT prophylaxis Current Visit: Yes Status: Acute scds Subjective Principal diagnosis: sepsis due to acute harry Interval history: 53 y/o F history of DM admitted for sepsis due to acute cholecystitis was treated for DKA and completed protocol yesterday. Her abdominal pain is improved but admits to occasional cough- denies chest pain, palliations, shortness of breath, or nausea. Objective PUL Vital signs: Last Vital Signs Temp 99.0 F 08/24/18 08:03 Pulse 115 08/24/18 08:00 Resp 20 08/24/18 08:00 BP 124/75 08/24/18 08:00 Pulse Ox 98 08/24/18 08:00 General appearance: no acute distress, alert Eyes: nonicteric ENT: oropharynx moist Effort: normal Auscultation: bilateral: clear Gastrointestinal: hypoactive bowel sounds, soft, tender Integumentary: normal Extremities: no cyanosis, no edema Musculoskeletal: no deformities Gait: normal posture normal mental status, non-focal exam mood appropriate, affect normal Results - Laboratory Findings CBC and BMP: 08/24/18 03:48 08/24/18 03:48 ABG ABG pH 7.41 pH Units (7.32-7.45) 08/23/18 05:02 ABG pCO2 30 mmHg (35-45) L 08/23/18 05:02 ABG pO2 108 mmHg (85-104) H D 08/23/18 05:02 ABG O2 Saturation 98 % (95-98) 08/23/18 05:02 PT/INR, D-dimer PT 14.5 Seconds (9.4-12.1) H 08/22/18 14:38 Abnormal lab findings: Abnormal lab results RBC 3.56 M/mcL (3.82-4.97) L 08/24/18 03:48 Hgb 9.5 g/dL (11.5-15.4) L 08/24/18 03:48 Hct 30.0 % (35.3-44.9) L 08/24/18 03:48 MCH 26.7 pg (28.0-33.3) L 08/24/18 03:48 Band Neutrophils % 8.0 % (0-4) H 08/24/18 03:48 Metamyelocytes % 4.0 % (0) H 08/23/18 04:19 Reactive Lymphocytes Present (Not Present) A 08/24/18 03:48 PT 14.5 Seconds (9.4-12.1) H 08/22/18 14:38 ABG pCO2 30 mmHg (35-45) L 08/23/18 05:02 ABG pO2 108 mmHg (85-104) H D 08/23/18 05:02 ABG HCO3 19 mEq/L (21-27) L 08/23/18 05:02 ABG Base Excess -6 mEq/L (-2 to 3) L 08/23/18 05:02 VBG pCO2 25 mmHg (41-51) L 08/22/18 14:57 VBG pO2 212 mmHg (25-50) H 08/22/18 14:57 VBG HCO3 15 mEq/L (21-27) L 08/22/18 14:57 Sodium 135 mEq/L (136-145) L 08/24/18 03:48 Chloride 112 mEq/L (98-107) H 08/24/18 03:48 Carbon Dioxide 19 mEq/L (23-29) L 08/24/18 03:48 Glucose 116 mg/dL (70-105) H 08/24/18 03:48 POC Glucose 102 mg/dL (70-99) H 08/23/18 23:17 Calcium 7.4 mg/dL (8.6-10.3) L 08/24/18 03:48 Venous Ioniz Calcium 1.02 mmol/L (1.15-1.35) L 08/23/18 06:31 Phosphorus 2.3 mg/dL (2.7-4.5) L 08/24/18 03:48 B-Natriuretic Peptide 184 pg/mL (Less than 100) H 08/22/18 14:38 Serum Total Protein 6.3 g/dL (6.4-8.9) L 08/22/18 14:38 Beta-Hydroxybutyric Acd 0.41 mmol/L (0.02-0.27) H 08/22/18 14:38 Urine Glucose (UA) >=1000 mg/dL (Normal) H 08/22/18 15:06 Urine Ketones 15 mg/dL (Negative) H 08/22/18 15:06 - Microbiology Findings Microbiology Findings: Microbiology, Last 48 Hours 08/22/18 14:32 Blood Culture - Preliminary Peripheral Venipuncture Culture is incubating and being continuously monitored for growth. Final report to follow. 08/22/18 14:39 Blood Culture - Preliminary Peripheral Venipuncture Culture is incubating and being continuously monitored for growth. Final report to follow. - Clinical Findings Intake & Output: Intake & Output 08/23/18 08/24/18 08/24/18 23:59 07:59 15:59 Intake Total 152.9 / 152.9 1100 / 1100 Output Total 625 / 625 320 / 320 250 / 250 Balance -472.1 / -472.1 780 / 780 -250 / -250 Weight 93.1 kg Consult Discharge Plan - Plan Referrals: NONE,PCP [Primary Care Provider] - <Damon Juárez W - Last Filed: 08/24/18 10:28> Date of Encounter: 08/24/18 Objective PUL Vital signs: Last Vital Signs Temp 99.0 F 08/24/18 08:03 Pulse 115 08/24/18 08:00 Resp 20 08/24/18 08:00 BP 124/75 08/24/18 08:00 Pulse Ox 98 08/24/18 08:00 Results - Laboratory Findings CBC and BMP: 08/24/18 03:48 08/24/18 03:48 ABG ABG pH 7.41 pH Units (7.32-7.45) 08/23/18 05:02 ABG pCO2 30 mmHg (35-45) L 08/23/18 05:02 ABG pO2 108 mmHg (85-104) H D 08/23/18 05:02 ABG O2 Saturation 98 % (95-98) 08/23/18 05:02 PT/INR, D-dimer PT 14.5 Seconds (9.4-12.1) H 08/22/18 14:38 Abnormal lab findings: Abnormal lab results RBC 3.56 M/mcL (3.82-4.97) L 08/24/18 03:48 Hgb 9.5 g/dL (11.5-15.4) L 08/24/18 03:48 Hct 30.0 % (35.3-44.9) L 08/24/18 03:48 MCH 26.7 pg (28.0-33.3) L 08/24/18 03:48 Band Neutrophils % 8.0 % (0-4) H 08/24/18 03:48 Metamyelocytes % 4.0 % (0) H 08/23/18 04:19 Reactive Lymphocytes Present (Not Present) A 08/24/18 03:48 PT 14.5 Seconds (9.4-12.1) H 08/22/18 14:38 ABG pCO2 30 mmHg (35-45) L 08/23/18 05:02 ABG pO2 108 mmHg (85-104) H D 08/23/18 05:02 ABG HCO3 19 mEq/L (21-27) L 08/23/18 05:02 ABG Base Excess -6 mEq/L (-2 to 3) L 08/23/18 05:02 VBG pCO2 25 mmHg (41-51) L 08/22/18 14:57 VBG pO2 212 mmHg (25-50) H 08/22/18 14:57 VBG HCO3 15 mEq/L (21-27) L 08/22/18 14:57 Sodium 135 mEq/L (136-145) L 08/24/18 03:48 Chloride 112 mEq/L (98-107) H 08/24/18 03:48 Carbon Dioxide 19 mEq/L (23-29) L 08/24/18 03:48 Glucose 116 mg/dL (70-105) H 08/24/18 03:48 POC Glucose 102 mg/dL (70-99) H 08/23/18 23:17 Calcium 7.4 mg/dL (8.6-10.3) L 08/24/18 03:48 Venous Ioniz Calcium 1.02 mmol/L (1.15-1.35) L 08/23/18 06:31 Phosphorus 2.3 mg/dL (2.7-4.5) L 08/24/18 03:48 B-Natriuretic Peptide 184 pg/mL (Less than 100) H 08/22/18 14:38 Serum Total Protein 6.3 g/dL (6.4-8.9) L 08/22/18 14:38 Beta-Hydroxybutyric Acd 0.41 mmol/L (0.02-0.27) H 08/22/18 14:38 Urine Glucose (UA) >=1000 mg/dL (Normal) H 08/22/18 15:06 Urine Ketones 15 mg/dL (Negative) H 08/22/18 15:06 - Microbiology Findings Microbiology Findings: Microbiology, Last 48 Hours 08/22/18 14:32 Blood Culture - Preliminary Peripheral Venipuncture Culture is incubating and being continuously monitored for growth. Final report to follow. 08/22/18 14:39 Blood Culture - Preliminary Peripheral Venipuncture Culture is incubating and being continuously monitored for growth. Final report to follow. - Clinical Findings Intake & Output: Intake & Output 08/23/18 08/24/18 08/24/18 23:59 07:59 15:59 Intake Total 152.9 / 152.9 1100 / 1100 Output Total 625 / 625 320 / 320 250 / 250 Balance -472.1 / -472.1 780 / 780 -250 / -250 Weight 93.1 kg - Attending Attestation I examined this patient and my medical decision-making was reviewed with the Resident Physician. I agree with the documented findings, disposition and treatment plan as described except to the extent set forth below. We independently had [id number] contact with the patient Patient seen and examined at bedside Labs, radiology, chart personally reviewed. Management was reviewed during multidisciplinary critical care rounds. PATIENT TRANSITION SPECIALIST: Awake and alert encephalopathy has resolved no deficits today Pulm: Acceptable oxygenation on room air recommend out of bed to chair incentive spirometry and early ambulation/PT OT consultation Cards: Shock has resolved remains tachycardic restart beta blake GI: Bowel perforation with acute peritonitis postop day 2 status post repair GEN surgery managing this NG tube remains in place likely can be removed later today I suspect Nutrition: Nothing by mouth for now Renal: AK I has resolved hyperkalemia has resolved UOP Monitored, Cont to Trend sCr and monitor Electrolytes. ID: Continue Zosyn for peritonitis Heme/Onc: DVT prophylaxis given Endo: DKA is resolved Glucose Monitored continue bolus dosing of insulin as need ed per moderate intensity sliding scale Integ/MSK: Skin Care per routine ICU Nursing Protocol to prevent ulcers. Lines: All lines examined without evidence of infection : Dispo: Stable for transfer to [facility] telemetry for ongoing care CODE: Full
[2018-08-24] MEDS ORDERED: D5% in Water 1,000 ML IVC PRN ×2 (09:41→10:31)
[2018-08-24] MEDS ORDERED: Dextrose Gel 15 GM/37.5 ML TUBE PO PRN ×4 (09:41→10:31)
--- NOTE | 2018-08-24 10:00 | General Surgery Progress Note ---
Date of Encounter: 08/24/18 Time of Encounter: 09:50 Subjective Narrative: The patient is doing quite well after exploratory laparotomy for iatrogenic small bowel injury from laparoscopic cholecystectomy. The nasogastric tube drainage is falling and the patient has no abdominal pain. There are no bowel sounds. We will continue nasogastric tube drainage today. Her white blood cell count is normal. Her blood glucose level has dropped to 115 and she has responded very well to therapy. I think she is safe transfer to telemetry unit and continue supportive care and antibiotic therapy. Diagnosis is sepsis secondary to small bowel perforation. The small bowel perforation has been repaired and the abdomen irrigated. She has responded well to therapy with normalization of her vital signs as well as normalization of her blood glucose levels. She is safe for transfer out of the intensive care unit. Safe for transfer to telemetry. Continue supportive care and antibiotic therapy Objective Vital Signs - Last 8 Hours Temp Pulse Resp BP Pulse Ox 08/24/18 09:00 118 20 146/78 98 08/24/18 08:03 99.0 F 08/24/18 08:00 115 20 124/75 98 08/24/18 07:00 116 08/24/18 06:00 123 20 131/74 98 08/24/18 05:00 124 22 126/72 98 08/24/18 04:14 99.4 F 08/24/18 04:00 123 20 130/72 98 08/24/18 03:00 124 22 121/70 98 08/24/18 02:00 123 22 120/67 99 Intake and Output 08/23/18 08/24/18 08/24/18 23:59 07:59 15:59 Intake Total 152.9 / 152.9 1100 / 1100 400 / 400 Output Total 625 / 625 320 / 320 250 / 250 Balance -472.1 / -472.1 780 / 780 150 / 150 Intake: IV Fluids 152.9 / 152.9 1100 / 1100 400 / 400 0.9 % Sodium Chloride 1,000 ML 1000 / 1000 400 / 400 @ 100 mls/hr IVC .Q10H [facility] Rx#: [id number] FentaNYL (PF) 1,000 MCG In 0.9 52.9 / 52.9 % Sodium Chloride 80 ML @ 25 MCG/HR 2.5 mls/hr IVC CONT [facility] Rx#:[id number] Zosyn 3.375 GM In 0.9 % Sodium 100 / 100 100 / 100 Chloride (Mini-Bag +) 100 ML @ 25 mls/hr IVPB Q8HR [facility] Rx#: [id number] Oral 0 / 0 Output: Catheter 575 / 575 300 / 300 250 / 250 Gastric Drainage 50 / 50 20 / 20 Other: Weight 93.1 kg Blood Glucose* 102 112 114 - General physical appearance well developed, well nourished - Respiratory normal expansion, normal respiratory effort, clear to percussion, clear to auscultation - Cardiovascular Cardiovascular exam: Present: RRR, no murmurs/rubs/gallops - Abdomen Abdomen: Present: bowel sounds present, non tender (No bowel sounds yet) - Incision Incision: Present: clean and dry - Neurologic normal coordination, normal sensation - Psychiatric oriented to time, oriented to person, oriented to place, speech is normal, memory intact - Labs 08/24/18 03:48 08/24/18 03:48 Diabetes panel 08/23/18 08/24/18 Range/Units 15:31 03:48 Sodium 134 L 135 L (136-145) mEq/L Potassium 4.7 4.4 (3.5-5.1) mEq/L Chloride 110 H 112 H (98-107) mEq/L Carbon Dioxide 20 L 19 L (23-29) mEq/L BUN 24 H 17 (6-20) mg/dL Creatinine 0.93 0.71 (0.60-1.20) mg/dL Glucose 134 H 116 H (70-105) mg/dL Calcium 7.3 L 7.4 L (8.6-10.3) mg/dL Calcium panel 08/23/18 08/24/18 Range/Units 15:31 03:48 Calcium 7.3 L 7.4 L (8.6-10.3) mg/dL Phosphorus 2.7 2.3 L (2.7-4.5) mg/dL Pituitary panel 08/23/18 08/24/18 Range/Units 15:31 03:48 Sodium 134 L 135 L (136-145) mEq/L Potassium 4.7 4.4 (3.5-5.1) mEq/L Chloride 110 H 112 H (98-107) mEq/L Carbon Dioxide 20 L 19 L (23-29) mEq/L BUN 24 H 17 (6-20) mg/dL Creatinine 0.93 0.71 (0.60-1.20) mg/dL Glucose 134 H 116 H (70-105) mg/dL Calcium 7.3 L 7.4 L (8.6-10.3) mg/dL Adrenal panel 08/23/18 08/24/18 Range/Units 15:31 03:48 Sodium 134 L 135 L (136-145) mEq/L Potassium 4.7 4.4 (3.5-5.1) mEq/L Chloride 110 H 112 H (98-107) mEq/L Carbon Dioxide 20 L 19 L (23-29) mEq/L BUN 24 H 17 (6-20) mg/dL Creatinine 0.93 0.71 (0.60-1.20) mg/dL Glucose 134 H 116 H (70-105) mg/dL Calcium 7.3 L 7.4 L (8.6-10.3) mg/dL Consult Discharge Plan - Plan Referrals: NONE,PCP [Primary Care Provider] -
[2018-08-24] MEDS ORDERED: OXYCODONE Oral CONC 10 MG/0.5 ML ORAL.SYG SL PRN (10:31)
[2018-08-24] MEDS ORDERED: D5% in 0.45% NACL 1,000 ML IVC PRN (10:31)
[2018-08-24] MEDS ORDERED: Ondansetron 4 MG/2 ML VIAL IVP PRN (10:31)
[2018-08-24] MEDS ORDERED: *HR* Dextrose 50 % in Water (Syg) 50 ML SYRINGE IVP PRN (10:31)
[2018-08-24] MEDS ORDERED: D5% in 0.45% NACL w KCl 20 MEQ/1,000 ML MLS IVC PRN (10:31)
[2018-08-24] MEDS ORDERED: *HR* Metoprolol 5 MG/5 ML VIAL IVP SCH (12:00)
[2018-08-24] MEDS ORDERED: Insulin LISPRO 300 UNITS/3 ML VIAL SQ SCH (12:00)
[2018-08-24] MEDS: Insulin LISPRO 300 UNITS/3 ML VIAL SQ SCH ×2 (13:38→18:09)
[2018-08-24] MEDS: *HR* Metoprolol 5 MG/5 ML VIAL IVP SCH ×2 (13:38→18:14)
[2018-08-24] MEDS: Ringers Solution, Lactated 1,000 ML IVC SCH ×2 (15:42→22:42)
[2018-08-25] MEDS: Insulin LISPRO 300 UNITS/3 ML VIAL SQ SCH ×5 (00:44→21:49)
[2018-08-25] MEDS: *HR* Metoprolol 5 MG/5 ML VIAL IVP SCH ×2 (00:47→06:14)
[2018-08-25] MEDS: Piperacillin/Tazobactam 3.375 GM in 0.9 % Sodium Chloride Mini Bag 100 ML IVPB SCH ×4 (00:47→23:50)
[2018-08-25 05:42] LABS: Hematocrit 30.6 % (35.3-44.9); Hemoglobin 9.4 g/dL (11.5-15.4); Mean Corpuscular HGB Conc 30.7 g/dL (31.6-35.5); Mean Corpuscular Hemoglobin 26.3 pg (28.0-33.3); Mean Corpuscular Volume 85.7 fL (83.0-100.0); Mean Platelet Volume 10.2 fL (9.4-12.4); Platelet Count 225 K/mcL (140-400); Red Blood Count 3.57 M/mcL (3.82-4.97); Red Cell Distribution Width 14.3 % (11.5-14.5)
[2018-08-25 06:01] LABS: BUN/Creatinine Ratio 20 (6-26); Blood Urea Nitrogen 12 mg/dL (6-20); Calcium 8.2 mg/dL (8.6-10.3); Carbon Dioxide 15 mEq/L (23-29); Chloride 110 mEq/L (98-107); Glucose 126 mg/dL (70-105); Magnesium 1.6 mg/dL (1.6-2.6); Osmolality,Calculated 287 (280-300); Phosphorous 2.4 mg/dL (2.7-4.5); Potassium 4.2 mEq/L (3.5-5.1); Sodium 138 mEq/L (136-145); eGFR For Non-African Americans > 60 (> 60)
[2018-08-25 06:08] LABS: Platelet Estimate Normal (Normal)
[2018-08-25 06:10] LABS: Lymphocytes # 0.9 K/mcL (0.6-4.6); Monocytes # 0.3 K/mcL (0.0-1.3); Neutrophils # 7.1 K/mcL (1.6-8.9); Platelet Clumps Few (Not Present)
[2018-08-25 06:11] LABS: Large Platelets Present (Not Present)
[2018-08-25 06:13] LABS: Reactive Lymphocytes Present (Not Present)
[2018-08-25] MEDS ORDERED: Pantoprazole 40 MG VIAL IVP SCH (09:00)
--- NOTE | 2018-08-25 09:19 | General Surgery Progress Note ---
<Ana Espinoza L - Last Filed: 08/25/18 10:43> Date of Encounter: 08/25/18 Time of Encounter: 09:14 - Assessment and Plan (1) Status post exploratory laparotomy Current Visit: Yes Status: Acute Date of procedure: 08/22/18 Pre-op diagnosis: Acute abdomen Post-op diagnosis: other (Small bowel enterotomy (iatrogenic)) Procedure: Exploratory laparotomy and repair of small bowel enterotomy Anesthesia: BERTIN Surgeon: Anand Almodovar POD #3 as above. Patient states her abdominal discomfort is improved from yesterday. Her NG tube is not actively draining, plan to remove today. Her incision is clean and dry. Hbg is stable, no evidence for concern of acute bleed noted. WBC normal. Plan: Continue supportive care and abx therapy (day 4 of IV zoysn) Abdominal wound can be open to air or covered with dry dressing EPCDs incentive spirometry D/C NG tube Start clear liquid limited diet (2) S/P laparoscopic cholecystectomy Current Visit: Yes Status: Acute 08/21/2018 complicated lap harry with concern for small bowel injury d/t visualization of the mucosa. Per operative note, there was no bowel injury identified and no evidence of spilled contents. The abdomen was irrigated with copious amounts of antibiotic solution. Plan as above. Subjective Narrative: Patient is postop day 4 laparoscopic cholecystectomy for cholelithiasis with concerns for small bowel injury and now postop day 3 for exploratory laparotomy with repair of small bowel enterotomy. Patient's was in sepsis secondary to small bowel perforation which has been repaired and the abdomen was irrigated. Her DKA and acute renal failure has resolved with normalization of her vital signs and blood glucose levels. WBC in normal, she is receiving IV abx, day 4 of zoysn. Continue abx therapy and supportive care. NG tube drainage is minimal and tube can be removed today. Patient states that her abdominal pain is improved from yesterday and she is feeling much better. Objective Vital Signs - Last 8 Hours Temp Pulse Resp BP Pulse Ox 08/25/18 06:46 97.7 F 100 14 143/82 95 08/25/18 04:29 98.3 F 109 18 156/76 95 Intake and Output 08/24/18 08/25/18 08/25/18 23:59 07:59 15:59 Intake Total 1100 / 1100 100 / 100 Output Total 0 / 0 675 / 675 Balance 1100 / 1100 -575 / -575 Intake: IV Fluids 1100 / 1100 100 / 100 Lactated Ringers 1,000 ML @ 75 1000 / 1000 mls/hr IVC .[id number] [facility] Rx#: [id number] Zosyn 3.375 GM In 0.9 % Sodium 100 / 100 100 / 100 Chloride (Mini-Bag +) 100 ML @ 25 mls/hr IVPB Q8HR [facility] Rx#: [id number] Oral 0 / 0 0 / 0 Output: Urine 0 / 0 0 / 0 Straight Cath 675 / 675 Other: Meal npo Weight 91.4 kg Blood Glucose* 101 121 Patient Weight 08/25/18 23:59 Weight 91.4 kg - General physical appearance well developed, well nourished - Respiratory normal expansion, normal respiratory effort, clear to percussion, clear to auscultation - Cardiovascular Cardiovascular exam: Present: RRR, no murmurs/rubs/gallops - Abdomen Abdomen: Present: bowel sounds present, non tender - Incision Incision: Present: clean and dry - Neurologic normal coordination, normal sensation - Psychiatric oriented to time, oriented to person, oriented to place, speech is normal, memory intact - Labs 08/25/18 04:56 08/25/18 04:56 Diabetes panel 08/25/18 Range/Units 04:56 Sodium 138 (136-145) mEq/L Potassium 4.2 (3.5-5.1) mEq/L Chloride 110 H (98-107) mEq/L Carbon Dioxide 15 L (23-29) mEq/L BUN 12 (6-20) mg/dL Creatinine 0.59 L (0.60-1.20) mg/dL Glucose 126 H (70-105) mg/dL Calcium 8.2 L (8.6-10.3) mg/dL Calcium panel 08/25/18 Range/Units 04:56 Calcium 8.2 L (8.6-10.3) mg/dL Phosphorus 2.4 L (2.7-4.5) mg/dL Pituitary panel 08/25/18 Range/Units 04:56 Sodium 138 (136-145) mEq/L Potassium 4.2 (3.5-5.1) mEq/L Chloride 110 H (98-107) mEq/L Carbon Dioxide 15 L (23-29) mEq/L BUN 12 (6-20) mg/dL Creatinine 0.59 L (0.60-1.20) mg/dL Glucose 126 H (70-105) mg/dL Calcium 8.2 L (8.6-10.3) mg/dL Adrenal panel 08/25/18 Range/Units 04:56 Sodium 138 (136-145) mEq/L Potassium 4.2 (3.5-5.1) mEq/L Chloride 110 H (98-107) mEq/L Carbon Dioxide 15 L (23-29) mEq/L BUN 12 (6-20) mg/dL Creatinine 0.59 L (0.60-1.20) mg/dL Glucose 126 H (70-105) mg/dL Calcium 8.2 L (8.6-10.3) mg/dL Consult Discharge Plan - Plan Referrals: NONE,PCP [Primary Care Provider] - <Anand Almodovar - Last Filed: 08/25/18 13:01> Date of Encounter: 08/25/18 - Assessment and Plan (1) Status post exploratory laparotomy Current Visit: Yes Status: Acute The patient has had exploratory laparotomy with closure of small bowel enterotomy. She has responded well to therapy and we will remove the nasogastric tube today. Continue supportive care. Anand Almodovar MD [facility] Subjective Narrative: The patient is seen and evaluated on morning rounds today. Her glucose levels have normalized. She has very minimal nasogastric tube drainage and she is passing flatus. She has normal bowel sounds. Nasogastric tube will be removed today. Objective Vital Signs - Last 8 Hours Temp Pulse Resp BP Pulse Ox 08/25/18 10:34 98.7 F 112 16 152/78 96 08/25/18 06:46 97.7 F 100 14 143/82 95 Intake and Output 08/24/18 08/25/18 08/25/18 23:59 07:59 15:59 Intake Total 1100 / 1100 100 / 100 800 / 800 Output Total 0 / 0 675 / 675 0 / 0 Balance 1100 / 1100 -575 / -575 800 / 800 Intake: IV Fluids 1100 / 1100 100 / 100 800 / 800 Lactated Ringers 1,000 ML @ 75 1000 / 1000 800 / 800 mls/hr IVC .[id number] [facility] Rx#: [id number] Zosyn 3.375 GM In 0.9 % Sodium 100 / 100 100 / 100 Chloride (Mini-Bag +) 100 ML @ 25 mls/hr IVPB Q8HR [facility] Rx#: [id number] Oral 0 / 0 0 / 0 Output: Urine 0 / 0 0 / 0 0 / 0 Straight Cath 675 / 675 Other: Meal npo Weight 91.4 kg Blood Glucose* 101 121 107 Patient Weight 08/25/18 23:59 Weight 91.4 kg - General physical appearance well developed, well nourished, no pain - ENT normal pinna, normal mucosa, no congestion - Neck Neck exam: no masses, trachea midline, no lymphadectomy - Respiratory normal expansion, normal respiratory effort, clear to percussion, clear to auscultation - Cardiovascular Cardiovascular exam: Present: RRR, no murmurs/rubs/gallops - Abdomen Abdomen: Present: bowel sounds present, non tender - Incision Incision: Present: clean and dry - Neurologic CN 2-12 grossly intact, normal coordination, normal sensation - Psychiatric oriented to time, oriented to person, oriented to place, speech is normal, memory intact - Labs 08/25/18 04:56 08/25/18 04:56 Diabetes panel 08/25/18 Range/Units 04:56 Sodium 138 (136-145) mEq/L Potassium 4.2 (3.5-5.1) mEq/L Chloride 110 H (98-107) mEq/L Carbon Dioxide 15 L (23-29) mEq/L BUN 12 (6-20) mg/dL Creatinine 0.59 L (0.60-1.20) mg/dL Glucose 126 H (70-105) mg/dL Calcium 8.2 L (8.6-10.3) mg/dL Calcium panel 08/25/18 Range/Units 04:56 Calcium 8.2 L (8.6-10.3) mg/dL Phosphorus 2.4 L (2.7-4.5) mg/dL Pituitary panel 08/25/18 Range/Units 04:56 Sodium 138 (136-145) mEq/L Potassium 4.2 (3.5-5.1) mEq/L Chloride 110 H (98-107) mEq/L Carbon Dioxide 15 L (23-29) mEq/L BUN 12 (6-20) mg/dL Creatinine 0.59 L (0.60-1.20) mg/dL Glucose 126 H (70-105) mg/dL Calcium 8.2 L (8.6-10.3) mg/dL Adrenal panel 08/25/18 Range/Units 04:56 Sodium 138 (136-145) mEq/L Potassium 4.2 (3.5-5.1) mEq/L Chloride 110 H (98-107) mEq/L Carbon Dioxide 15 L (23-29) mEq/L BUN 12 (6-20) mg/dL Creatinine 0.59 L (0.60-1.20) mg/dL Glucose 126 H (70-105) mg/dL Calcium 8.2 L (8.6-10.3) mg/dL
--- NOTE | 2018-08-25 10:11 | Internal Med Progress Note ---
Hospitalist Progress Note - Encounter Date of Encounter: 08/25/18 Time of Encounter: 11:00 - Subjective Interval History: Patient is postop day 4 laparoscopic cholecystectomy for cholelithiasis with concerns for small bowel injury and now postop day 3 for exploratory laparotomy with repair of small bowel enterotomy Patient's DKA and acute renal failure has resolved Patient's diet has now been advanced to clear liquids per general surgery - Exam Vitals: Temp Pulse Resp BP Pulse Ox 97.7 F 100 14 143/82 95 08/25/18 06:46 08/25/18 06:46 08/25/18 06:46 08/25/18 06:46 08/25/18 06:46 Exam: Gen.: Nonacute distress, alert and oriented 3 ENT: Mucosal membranes moist Respiratory: Lungs are clear to auscultation bilaterally without any wheezing rhonchi or rales Cardiovascular: Normal S1 and S2 regular rate rhythm no murmurs rubs or gallops Abdomen: Soft, nontender and nondistended with positive bowel sounds Extremities: No lower extremity edema Skin: Normal color - Assessment and Plan (1) Septic shock Current Visit: Yes Status: Acute Assessment and Plan: Suspect due to peritonitis secondary to bowel perforation Patient's Levophed has been weaned and currently on maintenance IV fluids Will continue day 4 of IV Zosyn (2) Status post exploratory laparotomy Current Visit: Yes Status: Acute Assessment and Plan: POD#4 laparoscopic cholecystectomy for cholelithiasis with concerns for small bowel injury POD#3 ex-lap with small bowel repair Gen. surgery following an appreciate recommendations (3) ROBERT (acute kidney injury) Current Visit: Yes Status: Resolved Assessment and Plan: Resolved; suspect due to prerenal secondary to hypovolemia Continue to monitor (4) Elevated troponin Current Visit: Yes Status: Resolved Assessment and Plan: Suspect secondary to demand ischemia as troponins have trended downward. (5) DKA (diabetic ketoacidoses) Current Visit: Yes Status: Resolved Assessment and Plan: Resolved; coverage with sliding scale insulin (6) Anemia Current Visit: Yes Status: Acute Assessment and Plan: Hemoglobin was 14.9 on admission and this morning is 9.4 Will continue to monitor DVT Prophylaxis: EPCDs - Time Spent with Patient Total time spent is greater than 50% in coordination of care (as documented) at patient's floor/unit and/or counseling patient: Internal Medicine: Result - Labs CBC & Chem 7: 08/25/18 04:56 08/25/18 04:56 Labs: Short CBC 08/25/18 Range/Units 04:56 WBC 8.4 D (4.3-11.1) K/mcL Hgb 9.4 L (11.5-15.4) g/dL Hct 30.6 L (35.3-44.9) % Plt Count 225 (140-400) K/mcL Neutrophils # 7.1 (1.6-8.9) K/mcL BMP 08/25/18 04:56 Sodium 138 Potassium 4.2 Chloride 110 H Carbon Dioxide 15 L BUN 12 Creatinine 0.59 L Glucose 126 H Calcium 8.2 L - ABG Interpretation ABG results: ABG ABG pH 7.41 pH Units (7.32-7.45) 08/23/18 05:02 ABG pCO2 30 mmHg (35-45) L 08/23/18 05:02 ABG pO2 108 mmHg (85-104) H D 08/23/18 05:02 ABG O2 Saturation 98 % (95-98) 08/23/18 05:02 PT/INR, D-dimer PT 14.5 Seconds (9.4-12.1) H 08/22/18 14:38 - Impressions Impressions KUB X-Ray 08/24/18 19:44 IMPRESSION: Enteric tube with tip projecting over the lower mediastinum, likely within the lower esophagus. Advancement is recommended. The findings were sent to the Radiology Results Communication [facility] at 9:22 pm on 08/24/2018to be communicated to a licensed caregiver. D/ / Flaquita Modi Cha, MD / Flaquita Modi Cha, MD Interpreting Provider: Flaquita Modi Cha, MD Consult Discharge Plan - Plan Referrals: NONE,PCP [Primary Care Provider] - (5) DKA (diabetic ketoacidoses) Qualifiers: Diabetes mellitus type: type 2 Diabetes mellitus complication detail: without coma Qualified Code(s): E11.10 - Type 2 diabetes mellitus with ketoacidosis without coma (6) Anemia Qualifiers: Anemia type: other cause Other causes of anemia: chronic disease, other Qualified Code(s): D63.8 - Anemia in other chronic diseases classified elsewhere
--- NOTE | 2018-08-25 12:53 | Electrocardiograph Report ---
[facility] Test Date: 2018-08-22 Pat Name: Krissy Hilario Department: 112 Room: 3A55 Gender: F Sports Writer: ZEKE : 1965 Requested By: Anand Almodovar Order Number: [id number] Reading MD: Farzad Romero Measurements Intervals [place] Rate: 102 P: 45 CT: 136 QRS: -43 QRSD: 128 T: 136 QT: 367 QTc: 426 Interpretive Statements SINUS TACHYCARDIA MARKED LEFT AXIS DEVIATION ANTEROSEPTAL MYOCARDIAL INFARCTION, OF INDETERMINATE AGE MODERATE T-WAVE ABNORMALITY, CONSIDER LATERAL ISCHEMIA Electronically Signed On 08-25-2018 12:52:43 EST by Farzad Romero
[2018-08-25] MEDS: Famotidine 20 MG TABLET PO SCH (21:49)
--- NOTE | 2018-08-25 21:51 | Electrocardiograph Report ---
[address] [place], [place] [address] Test Date: 2018-08-22 Pat Name: Krissy Hilario Department: [id number] Room: 3A55 Gender: F Pegger Dobby Looms: : 1965 Requested By: Joe Morejon Order Number: [id number] Reading MD: Marques Garza Measurements Intervals [place] Rate: 104 P: 51 CO: 141 QRS: -40 QRSD: 107 T: 122 QT: 368 QTc: 484 Interpretive Statements Sinus tachycardia Possible left atrial enlargement Nonspecific IVCD with LAD Poor R wave progression Cannot rule out anteroseptal infarction, age indeterminate LVH with secondary repolarization abnormality Electronically Signed On 08-25-2018 21:49:12 EST by Marques Garza
[2018-08-26 04:12] LABS: Hematocrit 27.4 % (35.3-44.9); Hemoglobin 8.6 g/dL (11.5-15.4); Immature Granulocytes % 1.1 % (0-4); Lymphocytes # 1.2 K/mcL (0.6-4.6); Lymphocytes % 18.9 %; Mean Corpuscular HGB Conc 31.4 g/dL (31.6-35.5); Mean Corpuscular Hemoglobin 26.6 pg (28.0-33.3); Mean Corpuscular Volume 84.8 fL (83.0-100.0); Mean Platelet Volume 9.8 fL (9.4-12.4); Monocytes # 0.8 K/mcL (0.0-1.3); Monocytes % 12.8 %; Neutrophils # 4.1 K/mcL (1.6-8.9); Platelet Count 204 K/mcL (140-400); Red Blood Count 3.23 M/mcL (3.82-4.97); Red Cell Distribution Width 14.2 % (11.5-14.5); Segmented Neutrophils % 67.2 %
[2018-08-26 04:31] LABS: BUN/Creatinine Ratio 19 (6-26); Blood Urea Nitrogen 9 mg/dL (6-20); Calcium 7.6 mg/dL (8.6-10.3); Carbon Dioxide 22 mEq/L (23-29); Chloride 113 mEq/L (98-107); Glucose 183 mg/dL (70-105); Magnesium 1.4 mg/dL (1.6-2.6); Osmolality,Calculated 291 (280-300); Phosphorous 2.3 mg/dL (2.7-4.5); Potassium 3.4 mEq/L (3.5-5.1); Sodium 139 mEq/L (136-145); eGFR For Non-African Americans > 60 (> 60)
--- NOTE | 2018-08-26 08:19 | General Surgery Progress Note ---
Date of Encounter: 08/26/18 Time of Encounter: 07:00 - Assessment and Plan (1) Status post exploratory laparotomy Current Visit: Yes Status: Acute The patient has had exploratory laparotomy with closure of small bowel enterotomy. She has responded well to therapy and we will remove the nasogastric tube today. Continue supportive care. Anand Almodovar MD FACS 08/26/2018. The patient is doing quite well after exploratory laparotomy with repair of small bowel in she is tolerating clear liquids and passing gas. We will advance her diet to full liquids and anticipate discharge tomorrow. Anand Almodovar MD FACS Subjective Narrative: The patient is seen and evaluated on morning rounds. She has no abdominal c omplaints. She is passing a high volume of gas. She has normal bowel sounds. Vital signs are stable. She has no nausea or vomiting. We will advance her diet liquids. I would anticipate discharge tomorrow. She is progressing well from small bowel enterotomy at time of laparoscopy. Objective Vital Signs - Last 8 Hours Temp Pulse Resp BP Pulse Ox 08/26/18 07:07 97.4 F L 102 16 152/64 95 08/26/18 04:59 97.6 F 100 16 157/84 97 Intake and Output 08/25/18 08/26/18 08/26/18 23:59 07:59 15:59 Intake Total 200 / 200 100 / 100 Output Total 500 / 500 500 / 500 Balance -300 / -300 -400 / -400 Intake: IV Fluids 200 / 200 100 / 100 Zosyn 3.375 GM In 0.9 % Sodium 200 / 200 100 / 100 Chloride (Mini-Bag +) 100 ML @ 25 mls/hr IVPB Q8HR [facility] Rx#: [id number] Oral 0 / 0 0 / 0 Output: Urine 500 / 500 500 / 500 Other: Weight 88.4 kg Blood Glucose* 221 Patient Weight 08/26/18 23:59 Weight 88.4 kg - General physical appearance well developed, well nourished, no pain, obese - Respiratory normal expansion, normal respiratory effort, clear to percussion, clear to auscultation - Cardiovascular Cardiovascular exam: Present: RRR, no murmurs/rubs/gallops - Abdomen Abdomen: Present: bowel sounds present, soft, non tender - Incision Incision: Present: clean and dry - Neurologic normal coordination, normal sensation - Psychiatric oriented to time, oriented to person, oriented to place, speech is normal, memory intact - Labs 08/26/18 03:45 08/26/18 03:45 Diabetes panel 08/26/18 Range/Units 03:45 Sodium 139 (136-145) mEq/L Potassium 3.4 L (3.5-5.1) mEq/L Chloride 113 H (98-107) mEq/L Carbon Dioxide 22 L (23-29) mEq/L BUN 9 (6-20) mg/dL Creatinine 0.47 L (0.60-1.20) mg/dL Glucose 183 H (70-105) mg/dL Calcium 7.6 L (8.6-10.3) mg/dL Calcium panel 08/26/18 Range/Units 03:45 Calcium 7.6 L (8.6-10.3) mg/dL Phosphorus 2.3 L (2.7-4.5) mg/dL Pituitary panel 08/26/18 Range/Units 03:45 Sodium 139 (136-145) mEq/L Potassium 3.4 L (3.5-5.1) mEq/L Chloride 113 H (98-107) mEq/L Carbon Dioxide 22 L (23-29) mEq/L BUN 9 (6-20) mg/dL Creatinine 0.47 L (0.60-1.20) mg/dL Glucose 183 H (70-105) mg/dL Calcium 7.6 L (8.6-10.3) mg/dL Adrenal panel 08/26/18 Range/Units 03:45 Sodium 139 (136-145) mEq/L Potassium 3.4 L (3.5-5.1) mEq/L Chloride 113 H (98-107) mEq/L Carbon Dioxide 22 L (23-29) mEq/L BUN 9 (6-20) mg/dL Creatinine 0.47 L (0.60-1.20) mg/dL Glucose 183 H (70-105) mg/dL Calcium 7.6 L (8.6-10.3) mg/dL Consult Discharge Plan - Plan Referrals: NONE,PCP [Primary Care Provider] -
[2018-08-26] MEDS ORDERED: Potassium Phosphate 44 MEQ in 0.9 % Sodium Chloride 250 ML IVPB ONE (08:34)
[2018-08-26] MEDS: Famotidine 20 MG TABLET PO SCH ×2 (09:46→20:57)
[2018-08-26] MEDS: Piperacillin/Tazobactam 3.375 GM in 0.9 % Sodium Chloride Mini Bag 100 ML IVPB SCH ×3 (09:46→23:56)
[2018-08-26] MEDS: Venlafaxine XR (24 HR) 75 MG CAP.ER.24H PO SCH (09:46)
[2018-08-26] MEDS: Insulin LISPRO 300 UNITS/3 ML VIAL SQ SCH ×4 (09:48→20:58)
--- NOTE | 2018-08-26 12:01 | Internal Med Progress Note ---
Hospitalist Progress Note - Encounter Date of Encounter: 08/26/18 Time of Encounter: 12:01 - Subjective Interval History: 53 F admitted and managed for Chronic cholangitis s/p lap harry with small bowel injury, s/p ex-lap, CAD, CMP, DM, HLD, HTN, Seizure disorder She was admitted to the ICU, transferred to floors 08/23 DKA, ROBERT resolved POD 5 s/p lap harry and POD 4 s/p exp-lap with closure of small bowel enterotomy She has started taking po and diet is being advanced per surgery She has no new complains, she is seen and evaluated at the bedside - Exam Vitals: Temp Pulse Resp BP Pulse Ox 97.4 F L 102 16 152/64 95 08/26/18 07:07 08/26/18 07:07 08/26/18 07:07 08/26/18 07:07 08/26/18 07:07 Exam: VSS Gen: Sitting in chair, out of bed, not in any form of distress HEENT: Moist oral mucosa, anicteric, normal neck inspection Chest: CTAB heart: S1, S2only, no m/g/r Abdomen: Not tender, soft, Extremities: No pedal edema Neuro: AAOX3, no gross focal deficits Psych: Appropriate affect Skin: No rash - Assessment and Plan (1) Septic shock Current Visit: Yes Status: Resolved Assessment and Plan: Resolved Suspect due to peritonitis secondary to bowel perforation Patient's Levophed has been weaned off BP stable off levohed and IVF Continue Zosyn-Day 5 (2) ROBERT (acute kidney injury) Current Visit: Yes Status: Resolved Assessment and Plan: resolved (3) Elevated troponin Current Visit: Yes Status: Resolved Assessment and Plan: Suspect secondary to demand ischemia as troponins have trended downward. (4) DKA (diabetic ketoacidoses) Current Visit: Yes Status: Resolved Assessment and Plan: Resolved; coverage with sliding scale insulin FS ACHS ADA diet when tolerated (5) Status post exploratory laparotomy Current Visit: Yes Status: Acute Assessment and Plan: POD 5 laparoscopic cholecystectomy for cholelithiasis with concerns for small bowel injury POD 4 ex-lap with small bowel repair Gen. surgery following an appreciate recommendations (6) Anemia Current Visit: Yes Status: Acute Assessment and Plan: Hemoglobin was 14.9 on admission and this morning is 8.6 Likely due to hemoconcentration on admission as well as blood loss anemia post- op Will continue to monitor DVT Prophylaxis: EPCDs - Time Spent with Patient Total time spent is greater than 50% in coordination of care (as documented) at patient's floor/unit and/or counseling patient: Plan of Care Discussed with: patient Internal Medicine: Result - Labs CBC & Chem 7: 08/26/18 03:45 08/26/18 03:45 Labs: Short CBC 08/26/18 Range/Units 03:45 WBC 6.1 (4.3-11.1) K/mcL Hgb 8.6 L (11.5-15.4) g/dL Hct 27.4 L (35.3-44.9) % Plt Count 204 (140-400) K/mcL Neutrophils # 4.1 (1.6-8.9) K/mcL BMP 08/26/18 03:45 Sodium 139 Potassium 3.4 L Chloride 113 H Carbon Dioxide 22 L BUN 9 Creatinine 0.47 L Glucose 183 H Calcium 7.6 L - ABG Interpretation ABG results: ABG ABG pH 7.41 pH Units (7.32-7.45) 08/23/18 05:02 ABG pCO2 30 mmHg (35-45) L 08/23/18 05:02 ABG pO2 108 mmHg (85-104) H D 08/23/18 05:02 ABG O2 Saturation 98 % (95-98) 08/23/18 05:02 PT/INR, D-dimer PT 14.5 Seconds (9.4-12.1) H 08/22/18 14:38 Consult Discharge Plan - Plan Referrals: NONE,PCP [Primary Care Provider] - (4) DKA (diabetic ketoacidoses) Qualifiers: Diabetes mellitus type: type 2 Diabetes mellitus complication detail: without coma Qualified Code(s): E11.10 - Type 2 diabetes mellitus with ketoacidosis without coma (6) Anemia Qualifiers: Anemia type: other cause Other causes of anemia: chronic disease, other Qualified Code(s): D63.8 - Anemia in other chronic diseases classified elsewhere
[2018-08-27] MEDS: Famotidine 20 MG TABLET PO SCH (08:57)
[2018-08-27] MEDS: Venlafaxine XR (24 HR) 75 MG CAP.ER.24H PO SCH (08:57)
[2018-08-27] MEDS: Insulin LISPRO 300 UNITS/3 ML VIAL SQ SCH ×2 (08:58→11:42)
[2018-08-27] MEDS: Piperacillin/Tazobactam 3.375 GM in 0.9 % Sodium Chloride Mini Bag 100 ML IVPB SCH (08:59)
--- NOTE | 2018-08-27 11:45 | General Surgery Progress Note ---
<Makenzie Harrington L - Last Filed: 08/27/18 12:12> Date of Encounter: 08/27/18 Time of Encounter: 11:46 - Assessment and Plan (1) Status post exploratory laparotomy Status: Acute Date of procedure: 08/22/18 Pre-op diagnosis: Acute abdomen Post-op diagnosis: other (Small bowel enterotomy (iatrogenic)) Procedure: Exploratory laparotomy and repair of small bowel enterotomy Anesthesia: BERTIN Surgeon: Anand Almodovar POD #5 as above. tolerating her diet. Recovering as expected. OK to d/c from a surgical perspective. (2) S/P laparoscopic cholecystectomy Status: Acute 08/21/2018 complicated lap harry with concern for small bowel injury d/t visualization of the mucosa. Per operative note, there was no bowel injury identified and no evidence of spilled contents. The abdomen was irrigated with copious amounts of antibiotic solution. Subjective Patient reports: no new complaints, feels better, pain is less, tolerating a regular diet, voiding w/o difficulty, flatus, no bowel movement, afebrile Objective Vital Signs - Last 8 Hours Temp Pulse Resp BP Pulse Ox 08/27/18 10:33 98.2 F 86 16 137/75 96 08/27/18 06:19 97.1 F L 85 14 120/70 95 Intake and Output 08/26/18 08/27/18 08/27/18 23:59 07:59 15:59 Intake Total 460 / 460 100 / 100 240 / 240 Output Total 600 / 600 700 / 700 Balance 460 / 460 -500 / -500 -460 / -460 Intake: IV Fluids 100 / 100 100 / 100 Zosyn 3.375 GM In 0.9 % Sodium 100 / 100 100 / 100 Chloride (Mini-Bag +) 100 ML @ 25 mls/hr IVPB Q8HR [facility] Rx#: [id number] Oral 360 / 360 0 / 0 240 / 240 Output: Urine 600 / 600 700 / 700 Other: Meal Breakfast Percent of Meal Consumed 25% 100% Stool Size Moderate Stool Consistency loose Stool Color Brown # Voids 1 1 Weight 87.6 kg Blood Glucose* 214 169 185 Patient Weight 08/27/18 23:59 Weight 87.6 kg - General physical appearance well developed, no distress, other (sitting upright in chair at bedside. Appears pale, but sates she feels well.) - Eyes normal ocular movement - ENT normal nares, normal mucosa, atraumatic, normocephalic - Neck Neck exam: trachea midline - Respiratory normal expansion, normal respiratory effort, clear to auscultation - Cardiovascular Cardiovascular exam: Present: RRR - Abdomen Abdomen: Present: bowel sounds present, soft, tender (expected postoperative) Hernia: none - Incision Incision: Present: clean and dry, intact - Integumentary other (slightly pale) - Neurologic normal sensation - Musculoskeletal normal posture - Psychiatric oriented to time, oriented to person, oriented to place, speech is normal, memory intact - Labs 08/26/18 03:45 08/26/18 03:45 Consult Discharge Plan - Plan Instructions: Exploratory Laparotomy (DC) Additional Instructions: General Surgical Discharge Instructions 1. No pushing, pulling, or lifting greater than 15 lbs for 6 weeks. 2. You may shower beginning today, but no tub baths, soaking, or swimming for 2 weeks. 3. You may resume driving when you are off narcotics and are safe to react in a car. 4. Ttake the as needed Percocet for pain.. Take narcotics as directed. Do not take more narcotics then directed and do not share your narcotics with any other person. Do not drink alcohol while on narcotics. If extra pain medication is needed, you can take ONE 500 mg Tylenol with the percocet. Do not take more than 4grams of Tyleonol (acetaminophen) in one day. 5. Take stool softeners (Colace) or a water based laxative (Miralax) while taking narcotics. You may hold for loose stools. 6. Report any fevers greater than 100.5F, increase abdominal discomfort, drainage that looks like pus, increased redness or pain at the surgical site, or any vomiting. 7. Report any pain in the calves, shortness of breath, or rapid heartbeat. 8. Follow-up in the office as directed. 9. If you were prescribed antibiotics, do not stop them without talking to your provider. Referrals: NONE,PCP [Primary Care Provider] - Makenzie Harrington EDGE SETTER [Advanced Practice Nurse] - 09/04/18 10:00 am Prescriptions: Ondansetron ODT [Zofran ODT] 4 mg SL Q4HR PRN #15 tab.rapdis PRN Reason: Postsurgical nausea RX: OxyCODONE/APAP 5/325 [Percocet 5/325 MG] 1 each PO Q6HR PRN 5 Days #20 tablet PRN Reason: Pain Amoxicillin/Clavulanate [Augmentin] 875 mg PO BIDWM 14 Days #28 tablet Docusate Sodium [Colace] 100 mg PO BID PRN #30 capsule PRN Reason: Constipation <Anand Almodovar - Last Filed: 08/29/18 13:24> Date of Encounter: 08/27/18 - Assessment and Plan (1) Status post exploratory laparotomy Status: Acute Objective - Labs 08/26/18 03:45 08/26/18 03:45 - Attending Attestation I have personally performed a face to face evaluation on this patient. I have reviewed and agree with the care plan. History and Exam by me shows: The patient is seen and evaluated on morning rounds she had cholecystectomy and then small bowel perforation. She has done well since exploratory laparotomy and repair of the perforation. Discharged home. I will see her in 1 week. Anand Almodovar MD FACS
--- NOTE | 2018-08-27 14:00 | Internal Med Progress Note ---
Hospitalist Progress Note - Encounter Date of Encounter: 08/27/18 Time of Encounter: 13:57 - Subjective Interval History: 53 F admitted and managed for Chronic cholangitis s/p lap harry with small bowel injury, s/p ex-lap, CAD, CMP, DM, HLD, HTN, Seizure disorder She was admitted to the ICU, transferred to floors 08/23 DKA, ROBERT resolved POD 6 s/p lap harry and POD 5 s/p exp-lap with closure of small bowel enterotomy She has started taking po and diet is being advanced per surgery She is full liquid diet and this morning, complained of feeling sore She is not very ambulatory She is having BM, last one 08/26 Will advance to regular diet and likely discharge home a. m if tolerating, awaiting surgical eval at my time of review - Exam Vitals: Temp Pulse Resp BP Pulse Ox 98.2 F 86 16 137/75 96 08/27/18 10:33 08/27/18 10:33 08/27/18 10:33 08/27/18 10:33 08/27/18 10:33 Exam: VSS Gen: Sitting in chair, out of bed, not in any form of distress HEENT: Moist oral mucosa, anicteric, normal neck inspection Chest: CTAB heart: S1, S2only, no m/g/r Abdomen: Not tender, soft, obese, scar+, BS present in all quadrants Extremities: No pedal edema Neuro: AAOX3, no gross focal deficits Psych: Appropriate affect Skin: No rash - Assessment and Plan (1) Septic shock Current Visit: Yes Status: Resolved Assessment and Plan: Resolved Suspect due to peritonitis secondary to bowel perforation Patient's Levophed has been weaned off BP stable off levohed and IVF Discontinue Zosyn Start on Augmentin po-day 6 total of antibiotics (2) ROBERT (acute kidney injury) Current Visit: Yes Status: Resolved Assessment and Plan: resolved (3) Elevated troponin Current Visit: Yes Status: Resolved Assessment and Plan: Suspect secondary to demand ischemia as troponins have trended downward. (4) DKA (diabetic ketoacidoses) Current Visit: Yes Status: Resolved Assessment and Plan: Resolved; coverage with sliding scale insulin FS ACHS ADA diet when tolerated (5) Status post exploratory laparotomy Current Visit: Yes Status: Acute Assessment and Plan: POD 6 laparoscopic cholecystectomy for cholelithiasis with concerns for small bowel injury POD 5 ex-lap with small bowel repair Gen. surgery following and appreciate recommendations (6) Anemia Current Visit: Yes Status: Acute Assessment and Plan: Hemoglobin was 14.9 on admission and this morning is 8.6 Likely due to hemoconcentration on admission as well as blood loss anemia post- op Will continue to monitor, check CBC a.m DVT Prophylaxis: EPCDs - Time Spent with Patient Total time spent is greater than 50% in coordination of care (as documented) at patient's floor/unit and/or counseling patient: Internal Medicine: Result - Labs CBC & Chem 7: 08/26/18 03:45 08/26/18 03:45 - ABG Interpretation ABG results: ABG ABG pH 7.41 pH Units (7.32-7.45) 08/23/18 05:02 ABG pCO2 30 mmHg (35-45) L 08/23/18 05:02 ABG pO2 108 mmHg (85-104) H D 08/23/18 05:02 ABG O2 Saturation 98 % (95-98) 08/23/18 05:02 PT/INR, D-dimer PT 14.5 Seconds (9.4-12.1) H 08/22/18 14:38 Consult Discharge Plan - Plan Instructions: Exploratory Laparotomy (DC) Additional Instructions: General Surgical Discharge Instructions 1. No pushing, pulling, or lifting greater than 15 lbs for 6 weeks. 2. You may shower beginning today, but no tub baths, soaking, or swimming for 2 weeks. 3. You may resume driving when you are off narcotics and are safe to react in a car. 4. Ttake the as needed Percocet for pain.. Take narcotics as directed. Do not take more narcotics then directed and do not share your narcotics with any other person. Do not drink alcohol while on narcotics. If extra pain medication is needed, you can take ONE 500 mg Tylenol with the percocet. Do not take more than 4grams of Tyleonol (acetaminophen) in one day. 5. Take stool softeners (Colace) or a water based laxative (Miralax) while taking narcotics. You may hold for loose stools. 6. Report any fevers greater than 100.5F, increase abdominal discomfort, drainage that looks like pus, increased redness or pain at the surgical site, or any vomiting. 7. Report any pain in the calves, shortness of breath, or rapid heartbeat. 8. Follow-up in the office as directed. 9. If you were prescribed antibiotics, do not stop them without talking to your provider. Referrals: Makenzie Harrington WHEEL ADJUSTER [Advanced Practice Nurse] - 09/04/18 10:00 am NONE,PCP [Primary Care Provider] - Prescriptions: Ondansetron ODT [Zofran ODT] 4 mg SL Q4HR PRN #15 tab.rapdis PRN Reason: Postsurgical nausea OxyCODONE/APAP 5/325 [Percocet 5/325 MG] 1 each PO Q6HR PRN 5 Days #20 tablet PRN Reason: Pain Amoxicillin/Clavulanate [Augmentin] 875 mg PO BIDWM 14 Days #28 tablet Docusate Sodium [Colace] 100 mg PO BID PRN #30 capsule PRN Reason: Constipation (4) DKA (diabetic ketoacidoses) Qualifiers: Diabetes mellitus type: type 2 Diabetes mellitus complication detail: without coma Qualified Code(s): E11.10 - Type 2 diabetes mellitus with ketoacidosis without coma (6) Anemia Qualifiers: Anemia type: other cause Other causes of anemia: chronic disease, other Qualified Code(s): D63.8 - Anemia in other chronic diseases classified elsewhere
[2018-08-27 14:12] VITALS: BP 124/74
--- NOTE | 2018-08-27 14:14 | Discharge Summary ---
- NOTES TO OUTPATIENT PROVIDER Notes to Outpatient Provider: Follow up with surgery and PCP. Complete antibiotics at home Orders not resulted at time of discharge: Pending orders 08/22/18 14:32 Culture,Blood [BC] Stat 08/28/18 04:00 Chem 7 [Basic Metabolic Panel] AM 0400 Complete Blood Count [HEME] AM 0400 Date of Encounter: 08/27/18 Time of Encounter: 14:11 - Discharge Diagnosis (1) Septic shock Priority: Primary Status: Resolved (2) ROBERT (acute kidney injury) Priority: Primary Status: Resolved (3) Elevated troponin Priority: Primary Status: Resolved (4) DKA (diabetic ketoacidoses) Priority: Primary Status: Resolved Qualifiers: Diabetes mellitus type: type 2 Diabetes mellitus complication detail: without coma Qualified Code(s): E11.10 - Type 2 diabetes mellitus with ketoacidosis without coma (5) Status post exploratory laparotomy Priority: Primary Status: Acute (6) Anemia Priority: Primary Status: Acute Qualifiers: Anemia type: other cause Other causes of anemia: chronic disease, other Qualified Code(s): D63.8 - Anemia in other chronic diseases classified elsewhere Hospital course: Ms. Hilario is a 53 year old female with medical history of diabetes mellitus, cardiomyopathy, coronary artery disease, seizure disorder, hyperlipidemia and hypertension. She is following up with surgery as outpatient with chronic cholangitis was admitted to the intensive care unit for management of septic shock, diabetic ketoacidosis, acute kidney injury and acute cholecystitis. She was weaned off pressors and transferred to the floors 08/23/2018. Diabetic ketoacidosis and acute kidney injury has resolved. Today, she is postop day 6 status post laparoscopic cholecystectomy, postoperative day 5 status post exploratory laparotomy with closure of small bowel enterotomy. She has been on Zosyn since admission and today is day 6. The patient has been advanced gradually to full diet and is having bowel movement. She denies any new complaints this morning. Her fingersticks and vital signs have been within normal limit. She is seen and evaluated at the bedside, she denies chest pain, shortness of breath, she is ambulatory heart beat slowly, she denies abdominal pain with feeding, She has no undue abdominal tenderness She is medically stable to be discharged home with antibiotics, pain control, bowel regimen Wound care per surgical instructions Follow up with PCP and Surgery Patient is in agreement with plan of care Discharge discussed with: patient, nurse - Time Spent with Patient Total time spent providing and/or coordinating discharge services: Less than 30 minutes - Discharge Medications Prescriptions: Ondansetron ODT [Zofran ODT] 4 mg SL Q4HR PRN #15 tab.rapdis PRN Reason: Postsurgical nausea OxyCODONE/APAP 5/325 [Percocet 5/325 MG] 1 each PO Q6HR PRN 5 Days #20 tablet PRN Reason: Pain Amoxicillin/Clavulanate [Augmentin] 875 mg PO BIDWM 14 Days #28 tablet Docusate Sodium [Colace] 100 mg PO BID PRN #30 capsule PRN Reason: Constipation Home Medications: Aspirin [Lo-Dose Aspirin EC] 81 mg PO DAILY 08/26/17 [History] Carvedilol [Coreg] 6.25 mg PO BID 08/26/17 [History] Liraglutide [Victoza 2-Grant] 1.8 ml SQ DAILY 08/26/17 [History] Loratadine [Claritin] 10 mg PO DAILY PRN 08/26/17 [History] Venlafaxine XR (24 HR) [Effexor XR] 75 mg PO DAILY 08/26/17 [History] OxyCODONE/APAP 5/325 [Percocet 5/325 MG] 1 each PO Q6HR PRN 7 Days #20 tablet 08/21/18 [Rx] Lisinopril [Zestril] 10 mg PO DAILY 08/23/18 [History] Metformin HCl [Glucophage] 1,000 mg PO BID 08/23/18 [History] Rosuvastatin Calcium [Crestor] 20 mg PO HS 08/23/18 [History] Sitagliptin Phosphate [Januvia] 50 mg PO DAILY 08/23/18 [History] raNITIdine HCl [Zantac] 150 mg PO BID 08/23/18 [History] Amoxicillin/Clavulanate [Augmentin] 875 mg PO BIDWM 14 Days #28 tablet 08/27/18 [Rx] Docusate Sodium [Colace] 100 mg PO BID PRN #30 capsule 08/27/18 [Rx] Ondansetron ODT [Zofran ODT] 4 mg SL Q4HR PRN #15 tab.rapdis 08/27/18 [Rx] OxyCODONE/APAP 5/325 [Percocet 5/325 MG] 1 each PO Q6HR PRN 5 Days #20 tablet 08/27/18 [Rx] Allergies/Adverse Reactions: Allergy/AdvReac Type Severity Reaction Status Date / Time No Known Allergies Allergy Verified 08/26/17 07:34 Date of admission: 08/22/18 16:36 Primary care physician: PCP NONE Consults: 08/25/18 15:57 Consult to Invasive Line Access Team [CONS] Routine Reason for Consult: limited vascular access Line Type: EPIV Discharging clinician: Carlos Gonzales Anticipated date of discharge: 08/27/18 - Constitutional Vitals: Temp Pulse Resp BP Pulse Ox 98.2 F 86 16 137/75 96 08/27/18 10:33 08/27/18 10:33 08/27/18 10:33 08/27/18 10:33 08/27/18 10:33 General appearance: Present: A&O X 3, morbidly obese, no acute distress Exam: VSS Gen: Sitting in chair, out of bed, not in any form of distress HEENT: Moist oral mucosa, anicteric, normal neck inspection Chest: CTAB heart: S1, S2only, no m/g/r Abdomen: Not tender, soft, obese, scar+, BS present in all quadrants Extremities: No pedal edema Neuro: AAOX3, no gross focal deficits Psych: Appropriate affect Skin: No rash - Patient Status Disposition: Home, Self-Care Condition: Good Functional capacity at discharge: independent ambulation Overall status at discharge: patient is progressing back to baseline - Discharge Instructions Instructions: Exploratory Laparotomy (DC) Follow Up With: Makenzie Harrington [employer] CR[employer]HER OPERATOR [Advanced Practice Nurse] - 09/04/18 10:00 am NONE,PCP [Primary Care Provider] - Additional Instructions: General Surgical Discharge Instructions 1. No pushing, pulling, or lifting greater than 15 lbs for 6 weeks. 2. You may shower beginning today, but no tub baths, soaking, or swimming for 2 weeks. 3. You may resume driving when you are off narcotics and are safe to react in a car. 4. Ttake the as needed Percocet for pain.. Take narcotics as directed. Do not take more narcotics then directed and do not share your narcotics with any other person. Do not drink alcohol while on narcotics. If extra pain medication is needed, you can take ONE 500 mg Tylenol with the percocet. Do not take more than 4grams of Tyleonol (acetaminophen) in one day. 5. Take stool softeners (Colace) or a water based laxative (Miralax) while taking narcotics. You may hold for loose stools. 6. Report any fevers greater than 100.5F, increase abdominal discomfort, drainage that looks like pus, increased redness or pain at the surgical site, or any vomiting. 7. Report any pain in the calves, shortness of breath, or rapid heartbeat. 8. Follow-up in the office as directed. 9. If you were prescribed antibiotics, do not stop them without talking to your provider. - Diet and Activity Activity: resume usual activities as tolerated Diet: diabetic diet
--- NOTE | 2018-08-27 15:17 | Physician Discharge Referral ---
Home Health/Hosp Referral Info Transfer to: Home Health Attending Provider: Daniel Gonzales Provider in Charge Post Discharge: PCP - Diagnosis (1) Septic shock Priority: Primary Status: Resolved (2) ROBERT (acute kidney injury) Priority: Primary Status: Resolved (3) Elevated troponin Priority: Primary Status: Resolved (4) DKA (diabetic ketoacidoses) Priority: Primary Status: Resolved (5) Status post exploratory laparotomy Priority: Primary Status: Acute (6) Anemia Priority: Primary Status: Acute - Respiratory Orders Smoking Cessation: Smoking cessation has been advised. For more information, call the [place] [employer] Quit Line at 5-279-HLVE-NOW. - Diet/Nutrition Diet/Nutrition Orders: Regular, No Concentrated Sweets - Activity Activity Orders: Up ad naima - Services Needed Following services are medically necessary services: Nursing (once weekly nursing visits), Home Health Aide, Physical Therapy - Transfer Medications Prescriptions: Ondansetron ODT [Zofran ODT] 4 mg SL Q4HR PRN #15 tab.rapdis PRN Reason: Postsurgical nausea OxyCODONE/APAP 5/325 [Percocet 5/325 MG] 1 each PO Q6HR PRN 5 Days #20 tablet PRN Reason: Pain Amoxicillin/Clavulanate [Augmentin] 875 mg PO BIDWM 14 Days #28 tablet Docusate Sodium [Colace] 100 mg PO BID PRN #30 capsule PRN Reason: Constipation Home Medications: Aspirin [Lo-Dose Aspirin EC] 81 mg PO DAILY 08/26/17 [History] Carvedilol [Coreg] 6.25 mg PO BID 08/26/17 [History] Liraglutide [Victoza 2-Grant] 1.8 ml SQ DAILY 08/26/17 [History] Loratadine [Claritin] 10 mg PO DAILY PRN 08/26/17 [History] Venlafaxine XR (24 HR) [Effexor XR] 75 mg PO DAILY 08/26/17 [History] OxyCODONE/APAP 5/325 [Percocet 5/325 MG] 1 each PO Q6HR PRN 7 Days #20 tablet 08/21/18 [Rx] Lisinopril [Zestril] 10 mg PO DAILY 08/23/18 [History] Metformin HCl [Glucophage] 1,000 mg PO BID 08/23/18 [History] Rosuvastatin Calcium [Crestor] 20 mg PO HS 08/23/18 [History] Sitagliptin Phosphate [Januvia] 50 mg PO DAILY 08/23/18 [History] raNITIdine HCl [Zantac] 150 mg PO BID 08/23/18 [History] Amoxicillin/Clavulanate [Augmentin] 875 mg PO BIDWM 14 Days #28 tablet 08/27/18 [Rx] Docusate Sodium [Colace] 100 mg PO BID PRN #30 capsule 08/27/18 [Rx] Ondansetron ODT [Zofran ODT] 4 mg SL Q4HR PRN #15 tab.rapdis 08/27/18 [Rx] OxyCODONE/APAP 5/325 [Percocet 5/325 MG] 1 each PO Q6HR PRN 5 Days #20 tablet 08/27/18 [Rx] Allergies/Adverse Reactions: Allergy/AdvReac Type Severity Reaction Status Date / Time No Known Allergies Allergy Verified 08/26/17 07:34 Certification: Further, I certify that my clinical findings support that this patient is homebound (i.e. absences from home require considerable and taxing effort and are for medical reasons or [employer] services or infrequently or short duration when for other reasons) because: Homebound Reason: Patient requires assistance of a person or device to safely leave home Attestation: My signature below is to certify that this patient is under my care and that I, or nurse practitioner, or a physician's metallurgical laboratory assistant working with me, has a [id number] encounter with this patient.
== END 2018-08-27 16:13 | disposition home or self-care (01) | DRG 907 ==
LOC: EMEROOARM 14:05 → SUATTDRO 16:36 → ICNU 16:36 → 3ANU 08-24 14:48
PROVIDERS: ADMIT Internal Medicine Hospice and Palliative Medicine; ATTEND Internal Medicine